=== PATIENT | female | born 1965 | race Caucasian/White ===

== ENCOUNTER 2017-10-23 16:55 | Emergency (ER) | payer MEDICARE, OTHER ==
[~2017-10-23] VITALS: Ht 162.6 cm; Wt 54.4 kg
[~2017-10-23 16:55] MED LIST: ALBU90OI INH; ALBU90OI61 INH; ASPI325 PO; Ativan1 MG SL; CEPH500 PO; CETI10 PO; CYCL10 PO; DIAZ5 PO; DIPH50 PO; DOXY100 PO; ERYT.5TO OD; Eryped 400400 MG/5 M PO; HYDACE5 PO; IBUP600 PO; IBUP800 PO; INSN100I; INSN100I SC; INSR10I; INSR10I SC; INSU100I6 SC; INSUASPI SUBQ; INSULANI SUBQ; INSULANPEN SC; KETO10 PO; LEVFLO500 PO; LISI5 PO; LORA1 PO; METO5A PO; METR500 PO; NAPR500 MT; NITR100CA PO; ONDA4ODT MM; ONDA8 PO; OXYACE5T PO; PANT40 PO; PRED10 PO; PROC10 PO; PROC25S PR; PROM25 PO; PROM25S PR; SULTRISS PO; TRAM50 PO; Tigan300 MG PO; Zofran Odt4 MG SL; Zofran Odt8 MG SL; Zofran8 MG PO
[2017-10-23] MEDS ORDERED: ALPR.5 PO (17:30)
[2017-10-23] MEDS ORDERED: FURO20 PO (17:31)
[2017-10-23] MEDS ORDERED: ALBU90OI61 INH (17:31)
[2017-10-23 18:30] LABS: Calcium, Ionized (POC) 1.15 mmol/L (1.10-1.46); Chloride (POC) 103 mmol/L (98-108); Creatinine (POC) 1.3 mg/dL (0.6-1.0); Glucose (ISTAT POC) 218 mg/dL (70-99); Hemoglobin (POC) 11.6 g/dL (12.0-16.0); Potassium (POC) 4.6 mmol/L (3.5-5.5); Sodium (POC) 139 mmol/L (135-148); Total CO2 (POC) 27 mmol/L (21-32)
[2017-10-23 18:39] LABS: BASOPHILS ABSOLUTE AUTO 0.05 K/mm3 (0.00-0.23); BASOPHILS PERCENT AUTO 1 % (0-2); EOSINOPHILS ABSOLUTE AUTO 0.12 K/mm3 (0.00-0.68); EOSINOPHILS PERCENT AUTO 1 % (0-6); Hematocrit 34.4 % (33.0-51.0); Hemoglobin 11.2 g/dL (11.5-16.0); IMMATURE GRAN ABSOLUTE AUTO 0.03 K/mm3 (0.00-0.10); IMMATURE GRAN PERCENT AUTO 0 % (0-1); LYMPHOCYTES PERCENT AUTO 27 % (21-46); MONOCYTES ABSOLUTE AUTO 0.93 K/mm3 (0.16-1.47); MONOCYTES PERCENT AUTO 10 % (4-13); Mean Corpuscular HGB 29.3 pg (26.0-34.0); Mean Corpuscular HGB Conc 32.6 g/dL (31.5-36.5); Mean Corpuscular Volume 90 fL (80-100); NEUTROPHILS ABSOLUTE AUTO 5.56 K/mm3 (1.96-9.15); NEUTROPHILS PERCENT AUTO 61 % (41-73); Platelet Count 231 K/mm3 (150-400); RDW Coefficient Variation 13.1 % (11.7-14.2); RDW Standard Deviation 42.8 fL (35.1-46.3); Red Blood Cell Count 3.82 M/mm3 (3.80-5.20); White Blood Cell Count 9.19 K/mm3 (4.00-11.30)
[2017-10-23] MEDS ORDERED: Norco 5-325 Ta1 EACH PO (21:17)
[2017-10-23] MEDS ORDERED: ERYT1OIN RIGHTEYE (21:17)
[2017-10-23] MEDS ORDERED: Cleocin HCl150 MG PO (21:17)
== END 2017-10-23 21:28 | disposition home or self-care (01) ==
LOC: ER 16:55
PROVIDERS: Physician Assistant
DX: S05.01XA Injury of conjunctiva and corneal abrasion without foreign body, right eye, initial encounter (principal); L03.213 Periorbital cellulitis; Z88.5 Allergy status to narcotic agent; Z91.012 Allergy to eggs; Z91.018 Allergy to other foods; Z88.8 Allergy status to other drugs, medicaments and biological substances; Z79.899 Other long term (current) drug therapy; Z79.4 Long term (current) use of insulin; E10.9 Type 1 diabetes mellitus without complications; F17.210 Nicotine dependence, cigarettes, uncomplicated; W22.8XXA Striking against or struck by other objects, initial encounter
CPT/HCPCS: 36415; 70481; 80047; 85014; 85025; 96361; 96365; 99284; J7030; Q9967

== ENCOUNTER → 2018-04-26 | Outpatient (CLI) | payer MEDICARE, OTHER ==
[~2018-04-26] MED LIST changes: +ALPR.5 PO; +Cleocin HCl150 MG PO; +ERYT1OIN RIGHTEYE; +FURO20 PO; +Norco 5-325 Ta1 EACH PO
== END | disposition home or self-care (01) ==
LOC: LAB 11:41 → LAB SHORT 11:41
PROVIDERS: Nurse Practitioner Women's Health
DX: Z12.4 Encounter for screening for malignant neoplasm of cervix (principal)
CPT/HCPCS: 87624; G0123

== ENCOUNTER 2018-06-12 13:45 | Emergency (ER) | payer MEDICARE, OTHER ==
[~2018-06-12] VITALS: Ht 162.6 cm; Wt 54.4 kg
[2018-06-12] MEDS ORDERED: Benadryl A12.5 MG/5 PO (14:28)
[2018-06-12] MEDS ORDERED: Cephalexin250 MG/5 M PO (14:28)
== END 2018-06-12 14:33 | disposition home or self-care (01) ==
LOC: ER 13:45
DX: L01.00 Impetigo, unspecified (principal); L02.03 Carbuncle of face; L02.02 Furuncle of face; Z88.5 Allergy status to narcotic agent; Z91.012 Allergy to eggs; Z91.018 Allergy to other foods; Z79.899 Other long term (current) drug therapy; Z79.4 Long term (current) use of insulin; Z79.2 Long term (current) use of antibiotics; E10.9 Type 1 diabetes mellitus without complications; F17.210 Nicotine dependence, cigarettes, uncomplicated
CPT/HCPCS: 99282

== ENCOUNTER 2018-06-29 10:22 | Emergency (ER) | payer MEDICARE, OTHER ==
[~2018-06-29] VITALS: Ht 162.6 cm; Wt 54.4 kg
[~2018-06-29 10:22] MED LIST changes: +Benadryl A12.5 MG/5 PO; +Cephalexin250 MG/5 M PO
[2018-06-29] MEDS ORDERED: MUPIROCIN1 GM TOP (11:26)
== END 2018-06-29 11:40 | disposition home or self-care (01) ==
LOC: ER 10:22
DX: L98.9 Disorder of the skin and subcutaneous tissue, unspecified (principal); E10.9 Type 1 diabetes mellitus without complications; F17.200 Nicotine dependence, unspecified, uncomplicated; Z88.5 Allergy status to narcotic agent; Z91.012 Allergy to eggs; Z91.018 Allergy to other foods; Z88.8 Allergy status to other drugs, medicaments and biological substances; Z79.899 Other long term (current) drug therapy; Z79.51 Long term (current) use of inhaled steroids
CPT/HCPCS: 99283

== ENCOUNTER 2019-08-30 09:24 | Emergency (ER) | payer MEDICARE, OTHER ==
[~2019-08-30] VITALS: Ht 162.6 cm; Wt 56.7 kg
[~2019-08-30 09:24] MED LIST changes: +MUPIROCIN1 GM TOP
[2019-08-30 10:10] LABS: BASOPHILS ABSOLUTE AUTO 0.07 K/mm3 (0.00-0.23); BASOPHILS PERCENT AUTO 1 % (0-2); EOSINOPHILS PERCENT AUTO 3 % (0-6); Hematocrit 38.7 % (33.0-51.0); Hemoglobin 12.7 g/dL (11.5-16.0); IMMATURE GRAN ABSOLUTE AUTO 0.04 K/mm3 (0.00-0.10); IMMATURE GRAN PERCENT AUTO 1 % (0-1); LYMPHOCYTES ABSOLUTE AUTO 1.92 K/mm3 (0.84-5.20); LYMPHOCYTES PERCENT AUTO 25 % (21-46); MONOCYTES ABSOLUTE AUTO 0.89 K/mm3 (0.16-1.47); MONOCYTES PERCENT AUTO 12 % (4-13); Mean Corpuscular HGB 29.6 pg (26.0-34.0); Mean Corpuscular HGB Conc 32.8 g/dL (31.5-36.5); Mean Corpuscular Volume 90 fL (80-100); Mean Platelet Volume 11.5 fL (9.1-12.4); NEUTROPHILS ABSOLUTE AUTO 4.58 K/mm3 (1.96-9.15); NEUTROPHILS PERCENT AUTO 60 % (41-73); Platelet Count 202 K/mm3 (150-400); RDW Standard Deviation 42.7 fL (35.1-46.3); Red Blood Cell Count 4.29 M/mm3 (3.80-5.20)
[2019-08-30 10:21] LABS: Anion Gap 7 mmol/L (6-16); Blood Urea Nitrogen 18 mg/dL (8-24); Bun/Creatinine Ratio 19.7 (12.0-20.0); CO2, Blood 23 mmol/L (21-32); Calcium, Blood 9.1 mg/dL (8.5-10.1); Chloride, Blood 108 mmol/L (98-108); Creatinine, Blood 0.92 mg/dL (0.40-1.00); Glomerular Filtration Rate >60 (60-); Glucose, Blood 222 mg/dL (70-99); Potassium, Blood 4.5 mmol/L (3.5-5.5); Sodium, Blood 138 mmol/L (136-145)
[2019-08-30] MEDS ORDERED: K-TAB ER20 MEQ (10:52)
[2019-08-30] MEDS ORDERED: HYDROCODON-ACE118 ML PO (11:51)
[2019-08-30] MEDS ORDERED: Zithromax200 MG/5 M PO (11:51)
[2019-08-30] MEDS ORDERED: ROBITUSSIN30 MG/5 ML PO (11:51)
== END 2019-08-30 12:15 | disposition home or self-care (01) ==
LOC: ER 09:24
PROVIDERS: Emergency Medicine
DX: J20.9 Acute bronchitis, unspecified (principal); M54.12 Radiculopathy, cervical region; E10.40 Type 1 diabetes mellitus with diabetic neuropathy, unspecified; E10.43 Type 1 diabetes mellitus with diabetic autonomic (poly)neuropathy; K31.84 Gastroparesis; Z87.891 Personal history of nicotine dependence; Z88.5 Allergy status to narcotic agent; Z91.012 Allergy to eggs; Z91.018 Allergy to other foods; Z88.8 Allergy status to other drugs, medicaments and biological substances; Z79.899 Other long term (current) drug therapy; Z79.4 Long term (current) use of insulin
CPT/HCPCS: 36415; 71046; 72040; 80048; 85025; 93005; 93010; 94640; 96374; 99284-25; J1885

== ENCOUNTER → 2020-09-09 | Outpatient (CLI) | payer MEDICARE, OTHER ==
[~2020-09-09] MED LIST changes: +ALPRAZOLAM0.5 M1 PO; +ATOR80 PO; +Aspirin EC81 MG PO; +BASAGLAR K100 UNIT/1 SC; +BASAGLAR K100 UNIT/3 SC; +BENMENLOZ MT; +BUMETANIDE2 M3 PO; +CALC.25 PO; +CARVEDILOL12.5 MG PO; +CEFTRIAXONE2 G1 IV; +ELIQUIS5 MG PO; +FLUTICASONE-SA1 EAC1 INH; +FURO40 PO; +GABA100 PO; +GABA300 PO; +HUMALOG KW100 UNIT/1 SC; +HYDRA25; +HYDROCODON-ACE118 ML PO; -INSULANPEN SC; +K-TAB ER20 MEQ; +KLOR-CON 1010 ME3 PO; +LEVSOD25 PO; +LIPITOR80 MG PO; +LOVA40 PO; +Lisinopril2.5 MG PO; +MAGNESIUM OXID500 MG PO; +METO100 PO; +METO25 PO; +METO5 PO; +METO50 PO; +MIRALAX17 GM PO; +NEPHRO VITE; +NITR.4SL SL; +NOVOLOG FL100 UNIT/3; +NOVOLOG FL100 UNIT/3 SC; +ONDA4 PO; +ONDA4ODT PO; +Ondansetron Odt8 MG PO; +PANT20 PO; -PANT40 PO; +POTA10T PO; +Prednisone10 MG PO; +Prinivil10 MG PO; +ROBITUSSIN30 MG/5 ML PO; +SIME80CH PO; +SULTRIDS PO; +Sertraline HCl50 MG PO; +TAMS.4ER PO; +TORS10; +TORSE20 PO; +VENL75ER PO; +XARELTO20 MG PO; +Zithromax200 MG/5 M PO
[2020-09-09 18:09] LABS: Albumin, Blood 3.3 g/dL (3.4-5.0); Anion Gap 3 mmol/L (6-16); Blood Urea Nitrogen 18 mg/dL (8-24); CO2, Blood 30 mmol/L (21-32); Calcium, Blood 8.5 mg/dL (8.5-10.1); Chloride, Blood 107 mmol/L (98-108); Glomerular Filtration Rate 50 (60-); Glucose, Blood 273 mg/dL (70-99); Phosphorus, Blood 3.7 mg/dL (2.5-4.9); Potassium, Blood 4.6 mmol/L (3.5-5.5); Sodium, Blood 140 mmol/L (136-145)
== END | disposition home or self-care (01) ==
LOC: PLD 14:06
PROVIDERS: Internal Medicine Nephrology
DX: N18.30 Chronic kidney disease, stage 3 unspecified (principal); D63.1 Anemia in chronic kidney disease
CPT/HCPCS: 80069

== ENCOUNTER 2020-10-29 12:57 | Emergency (ER) | payer MEDICARE, OTHER ==
[~2020-10-29] VITALS: Ht 162.6 cm; Wt 59.0 kg
[~2020-10-29 12:57] MED LIST changes: -ALPRAZOLAM0.5 M1 PO; -ATOR80 PO; -Aspirin EC81 MG PO; -BASAGLAR K100 UNIT/3 SC; -BENMENLOZ MT; -BUMETANIDE2 M3 PO; -CALC.25 PO; -CARVEDILOL12.5 MG PO; -CEFTRIAXONE2 G1 IV; -ELIQUIS5 MG PO; -FLUTICASONE-SA1 EAC1 INH; -FURO40 PO; -GABA100 PO; -GABA300 PO; -HUMALOG KW100 UNIT/1 SC; -HYDRA25; -KLOR-CON 1010 ME3 PO; -LEVSOD25 PO; -LIPITOR80 MG PO; -LOVA40 PO; -Lisinopril2.5 MG PO; -MAGNESIUM OXID500 MG PO; -METO100 PO; -METO25 PO; -METO5 PO; -METO50 PO; -MIRALAX17 GM PO; -NEPHRO VITE; -NITR.4SL SL; -NOVOLOG FL100 UNIT/3; -ONDA4 PO; -ONDA4ODT PO; -Ondansetron Odt8 MG PO; -POTA10T PO; -Prednisone10 MG PO; -Prinivil10 MG PO; -SIME80CH PO; -SULTRIDS PO; -Sertraline HCl50 MG PO; -TAMS.4ER PO; -TORS10; -TORSE20 PO; -VENL75ER PO; -XARELTO20 MG PO
[2020-10-29 13:26] LABS: BASOPHILS ABSOLUTE AUTO 0.08 K/mm3 (0.00-0.23); BASOPHILS PERCENT AUTO 1 % (0-2); EOSINOPHILS ABSOLUTE AUTO 0.89 K/mm3 (0.00-0.68); EOSINOPHILS PERCENT AUTO 7 % (0-6); Hematocrit 32.2 % (33.0-51.0); Hemoglobin 9.7 g/dL (11.5-16.0); IMMATURE GRAN ABSOLUTE AUTO 0.05 K/mm3 (0.00-0.10); IMMATURE GRAN PERCENT AUTO 0 % (0-1); LYMPHOCYTES ABSOLUTE AUTO 1.18 K/mm3 (0.84-5.20); LYMPHOCYTES PERCENT AUTO 10 % (21-46); MONOCYTES ABSOLUTE AUTO 0.85 K/mm3 (0.16-1.47); MONOCYTES PERCENT AUTO 7 % (4-13); Mean Corpuscular HGB 27.1 pg (26.0-34.0); Mean Corpuscular HGB Conc 30.1 g/dL (31.5-36.5); Mean Corpuscular Volume 90 fL (80-100); Mean Platelet Volume 10.2 fL (9.1-12.4); NEUTROPHILS ABSOLUTE AUTO 9.05 K/mm3 (1.96-9.15); NEUTROPHILS PERCENT AUTO 75 % (41-73); Platelet Count 525 K/mm3 (150-400); RDW Coefficient Variation 14.6 % (11.7-14.2); RDW Standard Deviation 47.6 fL (35.1-46.3); Red Blood Cell Count 3.58 M/mm3 (3.80-5.20)
[2020-10-29 13:50] LABS: Albumin/Globulin Ratio 0.7 (0.8-1.8); Bilirubin, Total 0.2 mg/dL (0.1-1.0); Bun/Creatinine Ratio 34.9 (12.0-20.0); Calcium, Blood 8.8 mg/dL (8.5-10.1); Creatinine, Blood 1.89 mg/dL (0.40-1.00); Globulin, Blood 4.1 g/dL (2.2-4.0); Potassium, Blood 4.1 mmol/L (3.5-5.5); Total Protein, Blood 7.1 g/dL (6.4-8.2)
[2020-10-29] MEDS ORDERED: FURO40 PO (15:22)
[2020-10-29] MEDS ORDERED: ELIQUIS5 MG PO (15:24)
[2020-10-29] MEDS ORDERED: CALC.25 PO (15:24)
[2020-10-29] MEDS ORDERED: FLUTICASONE-SA1 EAC1 INH (15:25)
[2020-10-29] MEDS ORDERED: HYDRA25 (15:26)
[2020-10-29] MEDS ORDERED: GABA300 PO (15:26)
[2020-10-29] MEDS ORDERED: LOVA40 PO (15:27)
[2020-10-29] MEDS ORDERED: METO50 PO (15:27)
[2020-10-29] MEDS ORDERED: LEVSOD25 PO (15:27)
[2020-10-29] MEDS ORDERED: METO100 PO (15:28)
[2020-10-29] MEDS ORDERED: POTA10T PO (15:29)
[2020-10-29] MEDS ORDERED: NEPHRO VITE (15:29)
[2020-10-29] MEDS ORDERED: Sertraline HCl50 MG PO (15:29)
[2020-10-29] MEDS ORDERED: TAMS.4ER PO (15:30)
[2020-10-29] MEDS ORDERED: VENL75ER PO (15:30)
[2020-10-29] MEDS ORDERED: XARELTO20 MG PO (15:31)
[2020-10-29] MEDS ORDERED: CEPH500 PO (19:54)
== END 2020-10-29 20:05 | disposition home or self-care (01) ==
LOC: ER 12:57
PROVIDERS: Physician Assistant
DX: L76.34 Postprocedural seroma of skin and subcutaneous tissue following other procedure (principal); L76.82 Other postprocedural complications of skin and subcutaneous tissue; L03.115 Cellulitis of right lower limb; E10.40 Type 1 diabetes mellitus with diabetic neuropathy, unspecified; E10.43 Type 1 diabetes mellitus with diabetic autonomic (poly)neuropathy; K31.84 Gastroparesis; Z95.1 Presence of aortocoronary bypass graft; Z79.01 Long term (current) use of anticoagulants; Z79.899 Other long term (current) drug therapy; Z91.012 Allergy to eggs; Z88.5 Allergy status to narcotic agent; Z88.8 Allergy status to other drugs, medicaments and biological substances; Z87.891 Personal history of nicotine dependence; Y83.8 Other surgical procedures as the cause of abnormal reaction of the patient, or of later complication, without mention of misadventure at the time of the procedure
CPT/HCPCS: 10140; 36415; 80053; 82947; 83605; 85025; 87040; 87070; 87075; 87205; 96365-59; 99284-25; A9270; J3370

== ENCOUNTER → 2020-10-30 | Outpatient (CLI) | payer MEDICARE, OTHER ==
[~2020-10-30] MED LIST changes: +ALPRAZOLAM0.5 M1 PO; +ATOR80 PO; +Aspirin EC81 MG PO; +BASAGLAR K100 UNIT/3 SC; +BENMENLOZ MT; +BUMETANIDE2 M3 PO; +CALC.25 PO; +CARVEDILOL12.5 MG PO; +CEFTRIAXONE2 G1 IV; +ELIQUIS5 MG PO; +FLUTICASONE-SA1 EAC1 INH; +FURO40 PO; +GABA100 PO; +GABA300 PO; +HUMALOG KW100 UNIT/1 SC; +HYDRA25; +KLOR-CON 1010 ME3 PO; +LEVSOD25 PO; +LIPITOR80 MG PO; +LOVA40 PO; +Lisinopril2.5 MG PO; +MAGNESIUM OXID500 MG PO; +METO100 PO; +METO25 PO; +METO5 PO; +METO50 PO; +MIRALAX17 GM PO; +NEPHRO VITE; +NITR.4SL SL; +NOVOLOG FL100 UNIT/3; +ONDA4 PO; +ONDA4ODT PO; +Ondansetron Odt8 MG PO; +POTA10T PO; +Prednisone10 MG PO; +Prinivil10 MG PO; +SIME80CH PO; +SULTRIDS PO; +Sertraline HCl50 MG PO; +TAMS.4ER PO; +TORS10; +TORSE20 PO; +VENL75ER PO; +XARELTO20 MG PO
[2020-10-30 14:09] LABS: Creatinine Urine 38.9 mg/dL (27.00-270.00); Microalbumin, Urine Quant. 15.6 mg/L (0.000-20.000)
== END ==
LOC: LAB 06:00 → LAB SHORT 06:00 → LAB FUT 09-03 14:45
PROVIDERS: Internal Medicine Nephrology
DX: N18.2 Chronic kidney disease, stage 2 (mild) (principal); D63.1 Anemia in chronic kidney disease; N25.81 Secondary hyperparathyroidism of renal origin; E55.9 Vitamin D deficiency, unspecified; E78.00 Pure hypercholesterolemia, unspecified; R76.9 Abnormal immunological finding in serum, unspecified; R94.5 Abnormal results of liver function studies; R94.6 Abnormal results of thyroid function studies
CPT/HCPCS: 81050; 82043; 82570; 84156

== ENCOUNTER 2020-12-03 11:35 | Emergency (ER) | payer MEDICARE, OTHER ==
[~2020-12-03] VITALS: Ht 162.6 cm; Wt 61.7 kg
[~2020-12-03 11:35] MED LIST changes: -ALPRAZOLAM0.5 M1 PO; -ATOR80 PO; -Aspirin EC81 MG PO; -BASAGLAR K100 UNIT/3 SC; -BENMENLOZ MT; -BUMETANIDE2 M3 PO; -CARVEDILOL12.5 MG PO; -CEFTRIAXONE2 G1 IV; -GABA100 PO; -HUMALOG KW100 UNIT/1 SC; -KLOR-CON 1010 ME3 PO; -LIPITOR80 MG PO; -Lisinopril2.5 MG PO; -MAGNESIUM OXID500 MG PO; -METO25 PO; -METO5 PO; -MIRALAX17 GM PO; -NITR.4SL SL; -NOVOLOG FL100 UNIT/3; -ONDA4 PO; -ONDA4ODT PO; -Ondansetron Odt8 MG PO; -Prednisone10 MG PO; -Prinivil10 MG PO; -SIME80CH PO; -SULTRIDS PO; -TORS10; -TORSE20 PO
[2020-12-03] MEDS ORDERED: Lisinopril2.5 MG PO (14:06)
[2020-12-03] MEDS ORDERED: CARVEDILOL12.5 MG PO (14:07)
[2020-12-03] MEDS ORDERED: NOVOLOG FL100 UNIT/3 (14:07)
[2020-12-03] MEDS ORDERED: ONDA4 PO (14:07)
[2020-12-03] MEDS ORDERED: METO5 PO (14:08)
[2020-12-03] MEDS ORDERED: LIPITOR80 MG PO (14:08)
[2020-12-03] MEDS ORDERED: TORS10 (14:08)
[2020-12-03] MEDS ORDERED: Aspirin EC81 MG PO (14:09)
== END 2020-12-03 14:36 | disposition home or self-care (01) ==
LOC: ER 11:35
DX: L76.82 Other postprocedural complications of skin and subcutaneous tissue (principal); E10.43 Type 1 diabetes mellitus with diabetic autonomic (poly)neuropathy; K31.84 Gastroparesis; R22.41 Localized swelling, mass and lump, right lower limb; M79.604 Pain in right leg; E10.40 Type 1 diabetes mellitus with diabetic neuropathy, unspecified; Z79.899 Other long term (current) drug therapy; Z88.5 Allergy status to narcotic agent; Z91.012 Allergy to eggs; Z88.8 Allergy status to other drugs, medicaments and biological substances; Z79.01 Long term (current) use of anticoagulants; Z87.891 Personal history of nicotine dependence; Y83.9 Surgical procedure, unspecified as the cause of abnormal reaction of the patient, or of later complication, without mention of misadventure at the time of the procedure
CPT/HCPCS: 76882; 99284-25

== ENCOUNTER 2021-03-06 05:29 | Inpatient (IN) | payer MEDICARE, OTHER ==
[~2021-03-06] VITALS: Ht 167.6 cm; Wt 57.5 kg
[~2021-03-06 05:29] MED LIST changes: +Aspirin EC81 MG PO; +CARVEDILOL12.5 MG PO; +LIPITOR80 MG PO; +Lisinopril2.5 MG PO; +METO5 PO; +NOVOLOG FL100 UNIT/3; +ONDA4 PO; +TORS10
[2021-03-06 06:59] LABS: BASOPHILS ABSOLUTE AUTO 0.05 K/mm3 (0.00-0.23); BASOPHILS PERCENT AUTO 1 % (0-2); EOSINOPHILS ABSOLUTE AUTO 0.13 K/mm3 (0.00-0.68); EOSINOPHILS PERCENT AUTO 1 % (0-6); Hematocrit 36.7 % (33.0-51.0); Hemoglobin 11.6 g/dL (11.5-16.0); IMMATURE GRAN ABSOLUTE AUTO 0.03 K/mm3 (0.00-0.10); IMMATURE GRAN PERCENT AUTO 0 % (0-1); LYMPHOCYTES ABSOLUTE AUTO 1.05 K/mm3 (0.84-5.20); LYMPHOCYTES PERCENT AUTO 11 % (21-46); MONOCYTES ABSOLUTE AUTO 0.55 K/mm3 (0.16-1.47); MONOCYTES PERCENT AUTO 6 % (4-13); Mean Corpuscular HGB 26.2 pg (26.0-34.0); Mean Corpuscular HGB Conc 31.6 g/dL (31.5-36.5); Mean Corpuscular Volume 83 fL (80-100); Mean Platelet Volume 12.9 fL (9.1-12.4); NEUTROPHILS ABSOLUTE AUTO 7.86 K/mm3 (1.96-9.15); NEUTROPHILS PERCENT AUTO 81 % (41-73); Platelet Count 211 K/mm3 (150-400); RDW Coefficient Variation 16.6 % (11.7-14.2); RDW Standard Deviation 50.6 fL (35.1-46.3); Red Blood Cell Count 4.42 M/mm3 (3.80-5.20); White Blood Cell Count 9.67 K/mm3 (4.00-11.30)
[2021-03-06] MEDS ORDERED: BASAGLAR K100 UNIT/3 SC (06:59)
[2021-03-06] MEDS ORDERED: LISI5 PO (07:00)
[2021-03-06] MEDS ORDERED: GABA100 PO (07:00)
[2021-03-06] MEDS ORDERED: TORSE20 PO (07:01)
[2021-03-06] MEDS ORDERED: ALPRAZOLAM0.5 M1 PO (07:02)
[2021-03-06] MEDS ORDERED: Ondansetron Odt8 MG PO (07:04)
[2021-03-06 07:14] LABS: Albumin, Blood 3.7 g/dL (3.4-5.0); Bilirubin, Total 0.3 mg/dL (0.1-1.0); Bun/Creatinine Ratio 22.7 (12.0-20.0); Calcium, Blood 9.2 mg/dL (8.5-10.1); Creatinine, Blood 1.41 mg/dL (0.40-1.00); Globulin, Blood 3.6 g/dL (2.2-4.0); Potassium, Blood 4.3 mmol/L (3.5-5.5); Total Protein, Blood 7.3 g/dL (6.4-8.2); Troponin I 0.155 ng/mL (0.000-0.040)
[2021-03-06 09:22] LABS: International Normalized Ratio 0.94; Prothrombin Time Results 10.2 Sec (9.7-11.5)
[2021-03-06 10:55] LABS: SARS-Cov-2 (COVID-19) PCR, MMC NEGATIVE (NEGATIVE)
[2021-03-06 11:39] LABS: PCO2 Arterial 56.4 mmHg (35-45); PO2 Arterial 79.9 mmHg (80-100)
[2021-03-06 11:40] LABS: pH Blood Arterial 7.25 (7.35-7.45)
--- NOTE | 2021-03-06 11:45 | NUR ---
Echocardiograpm performed by Stacy Lyons under my supervision.
--- NOTE | 2021-03-06 12:06 | NUR ---
Echocardiogram performed by Stacy Lyons under my supervision.
[2021-03-06 12:16] LABS: Source, Urine Catheter
[2021-03-06 12:40] LABS: Bilirubin, Urine Neg (Neg); Blood, Urine 1+ (Neg); Glucose Qualitative, Urine 4+ (Neg); Ketones, Urine 2+ (Neg); Leukocyte Esterase, Urine Neg (Neg); Nitrite, Urine Neg (Neg); Protein, Urine 3+ (Neg); Urobilinogen, Urine NORM (Normal); pH, Urine 6.5 (5.0-8.0)
[2021-03-06 12:52] LABS: U Amphetamine Screen Not Detected; U Barbituate Screen Not Detected; U Benzodiazapine Screen Not Detected; U Buprenorphine Screen Not Detected; U Cannabinoids Screen DETECTED; U Cocaine Screen Not Detected; U Methadone Screen Not Detected; U Methamphetamine Screen Not Detected; U Opiates Screen DETECTED; U Oxycodone Screen Not Detected; U Phencyclidine Screen Not Detected; U Propoxyphene Screen Not Detected
[2021-03-06 12:57] LABS: Appearance, Urine Clear (Clear); Bacteria Not Seen /hpf; Color, Urine Yellow (P-Yellow); Red Blood Cells, Urine 0-2 /hpf (0-2); Squamous Epithelial Cells Rare /hpf (Few); White Blood Cells, Urine Not Seen /hpf (0-5)
--- NOTE | 2021-03-06 13:00 | NUR ---
Assumed care of pt upon arrival to ICU 2 from emergency department at 1230. Pt arrived accompanied by Jeramy TOBIAS. Transferred from ED [facility] to ICU bed using slider sheet and 5 staff. At time of arrival, heparin drip running per orders, levophed at 8 mcg/min peripherally, and propofol at 30 mcg/kg/min with dosing weight of 59 kg. Plan for charge nurse, Mariza, to place PICC line. Pt on ventilator via 7.5 cm ETT, 24cm ATT. Ventilator settings ACVC 16/325/5/75%. SpO2 90% or greater. SR per monitor. BP stable. OG tube placed to LIS. Green drainage from tube. Scant clear secretions from ETT. Low temp per temp stuart and temporal thermometer. Warm blankets provided. Stuart catheter draining clear, yellow urine. Family- sister and pt's son, updated on plan of care.
[2021-03-06 13:46] LABS: Hematocrit 38.9 % (33.0-51.0); Hemoglobin 12.1 g/dL (11.5-16.0)
--- NOTE | 2021-03-06 15:03 | NUR ---
At this time, levophed is off. Propofol is up to 50 mcg/kg/min as pt started coughing against ventilator and sitting up in bed, pulling on restraints with hands moving in direction of ETT. Pt did not follow commands. Insulin drip at 5 units/hr. Dr Veliz in to see pt. States plan to trend troponins and that increase to 2 or 3 is expected.
--- NOTE | 2021-03-06 15:10 | NUR ---
ELEVATED TROPONIN, FUTURE TROPONIN ORDERS Discussed with Dr Thayer and transmitter engineer in charge that troponin increased to 2.630. Provider requested this RN notify cathodic protection technician, Dr Veliz. Notified provider that next troponin check is for 1900. Provider ordered for this to be discontinued, and instead check troponin tomorrow AM.
--- NOTE | 2021-03-06 18:10 | NUR ---
Notified Dr Thayer that pt's blood sugar dropped quickly and is now 167. Insulin drip stopped and plan to check blood sugars Q4H with humalog coverage.
--- NOTE | 2021-03-06 18:21 | NUR ---
SUMMARY Pt is on 50 mcg/kg/min propofol. Levophed at 5 mcg/min. Heparin per orders. Insulin drip is off. Ventilator settings ACVC 16/325/5/30%. SpO2 90% or greater. SR per monitor. BP stable. Excellent urine output. OG tube remains to LIS. Will continue to closely monitor until care handoff and bedside report with oncoming RN.
--- NOTE | 2021-03-06 18:58 | NUR ---
Called to ED to provide calm presence and guidence to family. Pt' Sister, Carlota, was emotionally fragile and quite tearful. Facilitated life review, afirmed obvious love, and provided grounding presence. Stayed with Carlota, offering communication between clincal team. Helped translate clinical terminology to Carlota's understanding. This took several hours. Pt's son arrived and I offered the same interventions to him to good effect. Non-synagogue/spiritual pt and family. They declined prayer but appeared to benefit from otehr interventions. Family appears to understand serious dx. Rn Perinatal services will remain available.
--- NOTE | 2021-03-06 19:00 | NUR ---
ASSUMED CARE ASSUMED CARE OF PATIENT. REMAINS INTUBATED- AC 16, TV 325, PEEP 5, FIO2 30%. RR 16. SEDATED WITH PROPOFOL AT 50MCG/KG/MIN. OPENS EYES TO VERBAL STIMULI. BECOMES AGITATED WHEN AWAKE. PULLS AGAINST RESTRAINTS, REACHES FOR ETT, AND ATTEMPTS TO SIT UP IN BED. SQUEEZED HAND TO COMMAND, BUT NOT FOLLOWING ANY OTHER COMMANDS. BILATERAL SOFT WRIST RESTRAINTS IN PLACE TO PREVENT SELF-EXTUBATION. MONITOR SHOWS SR, RATE 70s. MAP >65 WITH LEVOPHED AT 5MCG/MIN. OG TO LIS WITH SMALL AMOUNT OF BROWN DRAINAGE. RODRIGUEZ PATENT AND DRAINING SMALL AMOUNT OF CLEAR YELLOW URINE. KALE PICC PATENT, DRSG D/I. HEPARIN INFUSING PER PHARMACY AT 12.5UNITS/KG/HR (14.8CC/HR). SEE SHIFT ASSESSMENT FOR FULL ASSESSMENT.
[2021-03-06 19:02] LABS: Hematocrit 35.8 % (33.0-51.0); Hemoglobin 11.4 g/dL (11.5-16.0)
--- NOTE | 2021-03-07 02:45 | NUR ---
AGITATION PT WITH INCREASED AGITATION DESPITE PROPOFOL 50-90MCG/KG/MIN AND FENTANYL 50MCG IV Q2H. SITTING UP IN BED AND REACHING FOR ETT TUBE. THROWING LEGS OVER SIDE OF BED. DR. GARCIA NOTIFIED AND NEW ORDERS RECEIVED FOR PRECEDEX AND ATIVAN NEEDED.
[2021-03-07 04:27] LABS: BASOPHILS ABSOLUTE AUTO 0.04 K/mm3 (0.00-0.23); BASOPHILS PERCENT AUTO 0 % (0-2); EOSINOPHILS ABSOLUTE AUTO 0.13 K/mm3 (0.00-0.68); EOSINOPHILS PERCENT AUTO 1 % (0-6); Hematocrit 33.7 % (33.0-51.0); Hemoglobin 10.7 g/dL (11.5-16.0); IMMATURE GRAN ABSOLUTE AUTO 0.06 K/mm3 (0.00-0.10); IMMATURE GRAN PERCENT AUTO 1 % (0-1); LYMPHOCYTES PERCENT AUTO 19 % (21-46); MONOCYTES ABSOLUTE AUTO 0.94 K/mm3 (0.16-1.47); MONOCYTES PERCENT AUTO 8 % (4-13); Mean Corpuscular HGB 26.1 pg (26.0-34.0); Mean Corpuscular HGB Conc 31.8 g/dL (31.5-36.5); Mean Corpuscular Volume 82 fL (80-100); Mean Platelet Volume 11.6 fL (9.1-12.4); NEUTROPHILS ABSOLUTE AUTO 8.05 K/mm3 (1.96-9.15); NEUTROPHILS PERCENT AUTO 71 % (41-73); Platelet Count 177 K/mm3 (150-400); RDW Standard Deviation 50.6 fL (35.1-46.3); White Blood Cell Count 11.42 K/mm3 (4.00-11.30)
[2021-03-07 05:02] LABS: Albumin, Blood 2.9 g/dL (3.4-5.0); Albumin/Globulin Ratio 0.9 (0.8-1.8); Bilirubin, Total 0.3 mg/dL (0.1-1.0); Bun/Creatinine Ratio 20.2 (12.0-20.0); Calcium, Blood 8.3 mg/dL (8.5-10.1); Creatinine, Blood 1.73 mg/dL (0.40-1.00); Globulin, Blood 3.1 g/dL (2.2-4.0); Potassium, Blood 3.2 mmol/L (3.5-5.5)
[2021-03-07 05:07] LABS: Troponin I 30.6 ng/mL (0.000-0.040)
--- NOTE | 2021-03-07 06:22 | NUR ---
SHIFT SUMMARY NO ACUTE CHANGES. REMAINS INTUBATED- AC 16, TV 325, PEEP 5, FIO2 30%. SEDATED WITH PROPOFOL AT 50MCG/KG/MIN AND PRECEDEX AT 0.3MCG/KG/HR. PT CONTINUES WITH PERIODS OF AGITATION WITH ANY STIMULATION, BUT APPEARS LESS SINCE PRECEDEX WAS STARTED. ALSO MEDICATED WITH FENTANYL 50MCG IV AND ATIVAN 2MG IV NEEDED FOR SEDATION ADJUNCT. LEVOPHED INFUSING AT 4MCG/MIN TO MAINTAIN MAP >65. HEPARIN INFUSING AT 12.5UNITS/KG/HR PER PHARMACY. OG TO LIS WITH SMALL AMOUNT OF BROWN DRAINAGE. RODRIGUEZ PATENT AND DRAINING CLEAR YELLOW URINE. WILL REPORT TO ONCOMING RN WHEN AVAILABLE.
--- NOTE | 2021-03-07 07:15 | NUR ---
Assumed care of pt at 0700. Bedside report received from Annabelle TOBIAS. Pt sedated with propofol at 50 mcg/kg/min. Precedex at 0.3 mcg/kg/hr. Requiring 4 mcg/min levophed. BP and MAP stable, plan to titrate levophed down. Pt responsive to pain. Moves all extremities. SR per monitor. OG tube to LIS with liquid brown secretions. Bautista catheter draining clear, yellow urine.
--- NOTE | 2021-03-07 07:52 | NUR ---
Call placed to tobacco drummer supervisor inspection and testing, Dr Barrera, to notify that pt's troponin has increased to 30.6.
--- NOTE | 2021-03-07 08:39 | NUR ---
DR Christina RAMIREZ IN TO SEE PT Updated provider on plan of care. Also discussed troponin.
--- NOTE | 2021-03-07 14:00 | NUR ---
Pt had angiogram, this RN accompanied pt. No intervention performed. Per Dr Barrera, pt has stress cardiomyopathy. Pt now has procedure site to right groin. Perclose placed at end of procedure. Dressed in tegaderm CHG. Site free of drainage/bruising. Color, sensation, pulses, capillary refill equal BLE.
--- NOTE | 2021-03-07 17:00 | NUR ---
Sedation decreased to 40 mcg/kg/min propofol and 0.3 mcg/kg/hr precedex. Pt sat up in bed, and tried reaching for ETT. Did not follow commands when instructed to do so. Sedation increased to 45 mcg/kg/min propofol and 0.3 mcg/kg/hr precedex and this resolved agitation.
--- NOTE | 2021-03-07 19:00 | NUR ---
ASSUMED CARE ASSUMED CARE OF PATIENT. REMAINS INTUBATED- AC 16, TV 325, PEEP 5, FIO2 30%. RR 16. SEDATED WITH PROPOFOL AT 45MCG/KG/MIN AND PRECEDEX AT 0.3MCG/KG/HR. PERIODS OF AGITATION WHEN AWAKE. MOVES ALL EXTREMITIES AND ATTEMPTS TO SIT UP IN BED, BUT DOESN'T FOLLOW COMMANDS AT THIS TIME. BILATERAL SOFT WRIST RESTRAINTS IN PLACE TO PREVENT SELF-EXTUBATION. MONITOR SHOWS NSR, RATE 60s. BP STABLE WITH MAP >65 WITH LEVOPHED AT 3MCG/MIN. OG CLAMPED. RODRIGUEZ PATENT AND DRAINING CLEAR YELLOW URINE. KALE PICC LINE PATENT. SEE SHIFT ASSESSMENT FOR FULL ASSESSMENT.
--- NOTE | 2021-03-07 19:22 | NUR ---
At this time, pt is sedated with 45 mcg/kg/min propofol and 0.3 mcg/kg/hr precedex. Requiring 3 mcg/min levophed to maintain MAP 65 or greater. Ventilator settings AC 16/325/5/30%. SpO2 90% or greater. Moderate amounts of thin brown secretions that resembled OG tube output. Dr Eagle aware. OG tube clamped at this time. Excellent urine output this shift. Right groin site stable. No bruising or hematoma or drainage. Color, sensation, pulses, capillary refill equal BLE. Report given to oncoming RN to assume care, Annabelle.
[2021-03-08 05:31] LABS: BASOPHILS ABSOLUTE AUTO 0.08 K/mm3 (0.00-0.23); BASOPHILS PERCENT AUTO 1 % (0-2); EOSINOPHILS ABSOLUTE AUTO 0.15 K/mm3 (0.00-0.68); EOSINOPHILS PERCENT AUTO 2 % (0-6); Hematocrit 36.8 % (33.0-51.0); Hemoglobin 11.7 g/dL (11.5-16.0); IMMATURE GRAN ABSOLUTE AUTO 0.04 K/mm3 (0.00-0.10); IMMATURE GRAN PERCENT AUTO 0 % (0-1); LYMPHOCYTES ABSOLUTE AUTO 1.53 K/mm3 (0.84-5.20); LYMPHOCYTES PERCENT AUTO 15 % (21-46); MONOCYTES ABSOLUTE AUTO 0.96 K/mm3 (0.16-1.47); MONOCYTES PERCENT AUTO 10 % (4-13); Mean Corpuscular HGB 26.2 pg (26.0-34.0); Mean Corpuscular HGB Conc 31.8 g/dL (31.5-36.5); Mean Corpuscular Volume 83 fL (80-100); Mean Platelet Volume 11.7 fL (9.1-12.4); NEUTROPHILS ABSOLUTE AUTO 7.29 K/mm3 (1.96-9.15); NEUTROPHILS PERCENT AUTO 73 % (41-73); Platelet Count 174 K/mm3 (150-400); RDW Coefficient Variation 17.6 % (11.7-14.2); RDW Standard Deviation 53.1 fL (35.1-46.3); Red Blood Cell Count 4.46 M/mm3 (3.80-5.20); White Blood Cell Count 10.05 K/mm3 (4.00-11.30)
[2021-03-08 05:56] LABS: Albumin, Blood 2.8 g/dL (3.4-5.0); Anion Gap 9 mmol/L (6-16); Blood Urea Nitrogen 32 mg/dL (8-24); Bun/Creatinine Ratio 21.5 (12.0-20.0); CO2, Blood 26 mmol/L (21-32); Calcium, Blood 8.4 mg/dL (8.5-10.1); Chloride, Blood 104 mmol/L (98-108); Creatinine, Blood 1.49 mg/dL (0.40-1.00); Glomerular Filtration Rate 39 (60-); Glucose, Blood 215 mg/dL (70-99); Phosphorus, Blood 4.2 mg/dL (2.5-4.9); Potassium, Blood 3.1 mmol/L (3.5-5.5); Sodium, Blood 139 mmol/L (136-145)
--- NOTE | 2021-03-08 06:37 | NUR ---
SHIFT SUMMARY NO ACUTE CHANGES DURING NOC. REMAINS INTUBATED. SEDATED WITH PROPOFOL BETWEEN 35-45MCG/KG/MIN AND PRECEDEX AT 0.3MCG/KG/HR. PROPOFOL NOW AT 35MCG/KG/MIN. PERIODS OF AGITATION NOTED. PT MOVES ALL EXTREMITIES AND REACHES FOR ETT. ALSO ATTEMPTS TO SIT UP AND CLIMB OUT OF BED. DOES NOT CALM WITH REASSURANCE. BILATERAL SOFT WRIST RESTRAINTS IN PLACE TO PREVENT SELF- EXTUBATION. SBT DONE WITH BOTH PROPOFOL AND PRECEDEX STILL ON D/T AGITATION. MEDICATED WITH ATIVAN X 1 DOSE AND FENTANYL X 1 DOSE SEDATION ADJUNCT. LEVOPHED AT 3MCG/MIN TO MAINTAIN MAP >65. OG CLAMPED. RODRIGUEZ PATENT AND DRAINING CLEAR YELLOW URINE. ZIO PATCH IN PLACE TO CHEST. WILL REPORT TO ONCOMING RN WHEN AVAILABLE.
--- NOTE | 2021-03-08 09:29 | NUR ---
AM NOTE... ASSUMED CARE OF PT AT 0700. PT IS INTUBATED AND SEDATED ON 35 MCG OF PROPOFOL AND 0.3MCG/KG/HR OF PRECEDEX. PT'S VENT SETTINGS ARE AC: 16/325/5/30% WITH O2 SATS >95%. L/S CLEAR T/O SLIGHTLY DIM IN THE BASES. AT THE START OF THIS SHIFT PT WAS ON LEVOPHED AT 3MCG, PT'S MAPS>65, LEVOPHED WAS TITRATED DOWN TO 2 THEN TO STAND BY AT 0849. PT IS IN NSR IN THE 60'S WITH NO ECTOPY NOTED. PT HAS TRACE EDEMA NOTED TO HER BLE/FEET. BT PRESENT AND HYPOACTIVE, ABD IS SOFT AND NONTENDER TO PALP. PT HAS RODRIGUEZ THAT IS PATENT AND DRAINING CLEAR YELLOW URINE TO GRAVITY. PT'S PUPILS ARE 3MM EQUAL BUT NON-REACTIVE TO LIGHT, DURING ASSESSMENT PT ATTEMPTED TO CLOSE HER EYES TO THE FLASH LIGHT BUT NO PUPIL REACTION WAS SEEN. DURING ASSESSMENT THE PT WOKE UP AND STARTED TO SIT UP IN BED, ATTEMPTED TO PULL AT THE ET TUBE AND WAS THRASHING HER LEGS. PROPOFOL WAS INCREASED FROM 35MCG TO 45 MCG, PRECEDEX WAS INCREASED FROM 0.3 MCG/KG/HR TO 0.5MCG/KG/HR. ONCE THE PT SETTLED BACK DOWN AND WAS COMFORTABLE AGAIN (APROX 15 MINS) PROPOFOL WAS TITRATED BACK DOWN TO 35MCG. PT'S BP CONTINUES TO BE STABLE WITH LEVOPHED ON STANDBY. PT'S SON COSMO CALLED AND WAS UPDATED ON PT'S CONDITION AND THE PLAN OF CARE FOR TODAY INCLUDING POSSIBLE EXTUBATION. DR. SMITH UPDATED ON PT'S CONDITON THIS AM WELL. WILL CONTINUE TO MONITOR.
--- NOTE | 2021-03-08 11:19 | NUR ---
PT UPDATE... PT WAS EXTUBATED AT [address] SMITH'S ORDER. RT AT THE BEDSIDE TO EXTUBATION. PT WAS EXTUBATED WITHOUT ISSUE TO RA WITH O2 SATS >93%. PRECEDEX AND PROPOFOL WERE TURNED OFF, LEVOPHED CONTINUES AT 1MCG AT THIS TIME. PT'S VOICE IS SOFT AND HOARSE AT THIS TIME C/O OF A SORE THROAT AND IS ASKING FOR WATER. PT IS NPO UNTIL BEDSIDE SWALLOW EVAL IS DONE AND RISK OF ASPIRATION IS GONE. PT'S SON COSMO CALLED AND UPDATED. WILL CONTINUE TO MONITOR.
--- NOTE | 2021-03-08 13:41 | NUR ---
PT UPDATE.... AT 1330 THIS RN ENTERED THE ROOM TO ROUND ON THE PT. THE PT WAS REQUESTING SOME WATER, THE PT WAS MORE AWAKE THAN BEFORE, THE PT WAS SET UP IN THE BED AT A 90 DEGREE ANGLE, RN BEDSIDE EVALUATION WAS STARTED, THE PT WAS GIVEN 1 TEASPOON OF WATER AND STARTED TO COUGH. THE BEDSIDE SWALLOW EVALUATION WAS STOPPED AT THAT TIME. WHILE THIS RN WAS IN THE ROOM THE PT STARTED TO HIT HER BLANKETS AND STARTED TO BECOME ANXIOUS/AGITATED SAYING "THERE ARE SPIDERS! GET THE SPIDERS OUT OF THE BED!" THIS RN ATTEMPTED TO SHOW THE PT THAT THERE WERE NO SPIDERS IN THE BED HOWEVER THE PT SAID SHE CONTINUED TO SEE THE SPIDERS. THE PT THOUGHT THERE WERE SPIDERS ON THE ORAL SWAB THAT THIS RN WAS ATTEMPTING TO GIVE TO HER. THE PT HAS ALSO BEEN C/O OF FEELING "DIZZY" IN THE BED SAYING THAT HER VISION IS "WARPING" AROUND HER. PROVIDER NOTIFIED. PT'S VS CONTINUE TO BE STABLE, SHE CONTINUES TO BE ON RA WITH O2 SATS >90%. SHE HAS A WEAK COUGH AND HAS BEEN HAVING A HARD TIME CLEARING HER SECRETIONS AFTER COUGHING THEM UP. CALL LIGHT IN REACH, BED ALARM IS ON WILL CONTINUE TO MONITOR.
--- NOTE | 2021-03-08 18:40 | NUR ---
SHIFT SUMMARY... PT'S VS HAVE BEEN STABLE SINCE PT WAS EXTUBATED, PT HAS BEEN IN NSR IN THE 70'S-90'S. SINCE PT WAS EXTUBATED AT 1105 THE PT STARTED HAVING ECTOPY, PVCs AND SHORT RUNS OF VTACH, PT HAS ALSO BEEN C/O OF A "FLUTTERING" FEELING IN HER CHEST. PT'S BP HAS BEEN STABLE SINCE EXTUBATION AND THE SEDATION WAS STOPPED. PT'S HALLUCINATIONS OF SPIDERS HAVE STOPPED AT THIS TIME. A BEDSIDE SWALLOW EVAL WAS DONE BY THIS RN, PT HAS DONE WELL WITH WATER AND APPLE SAUCE. PT HAS BEEN ABLE TO TAKE PILLS WHOLE WITH WATER WITH NO ISSUES THIS AFTERNOON. CARDIOLOGY PROVIDER WAS CALLED IN RELATION TO THE ECTOPY/ RUNS OF VTACH, EGK WAS OBTAINED. PT WAS STARTED ON METOPROLOL XL 25MG BID. PER DIRECTOR OF RESTAURANT SHE WANTS TO BE CALLED IF THE ECTOPY/RUNS OF VTACH DO NOT STOP/DECREASE. PT HAS BEEN ABLE TO MOVE HERSELF AROUND THE BED INDEPENDENTLY. PT HAS A VERY WEAK COUGH AND HAS A HARD TIME COUGHING UP ANY SPUTUM. PT HAS BEEN C/O OF NAUSEA, PT WAS MEDICATED PER EMAR WITH MINIMAL RESULTS. PT'S SON WAS AT THE BEDSIDE FOR VISITING HOURS. PT'S RODRIGUEZ IS PATENT AND DRAINING CLEAR YELLOW TO GRAVITY. PER THE SON THE PT IS NOT COMPLIANT WITH MEDICATIONS AT HOME. EDUCATION PROVIDED TO THE PT ABOUT THE IMPORTANCE OF TAKING MEDICATIONS PRESCRIBED WHEN SHE GOES HOME. CALL LIGHT IN REACH WILL CONTINUE TO MONITOR UNTIL REPORT IS GIVEN TO ONCOMING RN.
[2021-03-08 20:47] LABS: Bun/Creatinine Ratio 20.3 (12.0-20.0); Calcium, Blood 8.5 mg/dL (8.5-10.1); Creatinine, Blood 1.53 mg/dL (0.40-1.00); Magnesium, Blood 1.9 mg/dL (1.6-2.4); Phosphorus, Blood 3.6 mg/dL (2.5-4.9); Potassium, Blood 3.9 mmol/L (3.5-5.5)
[2021-03-09 04:15] LABS: BASOPHILS ABSOLUTE AUTO 0.05 K/mm3 (0.00-0.23); BASOPHILS PERCENT AUTO 1 % (0-2); EOSINOPHILS ABSOLUTE AUTO 0.14 K/mm3 (0.00-0.68); EOSINOPHILS PERCENT AUTO 2 % (0-6); Hematocrit 33.9 % (33.0-51.0); Hemoglobin 10.8 g/dL (11.5-16.0); IMMATURE GRAN ABSOLUTE AUTO 0.03 K/mm3 (0.00-0.10); IMMATURE GRAN PERCENT AUTO 0 % (0-1); LYMPHOCYTES ABSOLUTE AUTO 1.35 K/mm3 (0.84-5.20); LYMPHOCYTES PERCENT AUTO 15 % (21-46); MONOCYTES ABSOLUTE AUTO 1.19 K/mm3 (0.16-1.47); MONOCYTES PERCENT AUTO 14 % (4-13); Mean Corpuscular HGB 26.2 pg (26.0-34.0); Mean Corpuscular HGB Conc 31.9 g/dL (31.5-36.5); Mean Corpuscular Volume 82 fL (80-100); NEUTROPHILS ABSOLUTE AUTO 6.03 K/mm3 (1.96-9.15); NEUTROPHILS PERCENT AUTO 69 % (41-73); Platelet Count 127 K/mm3 (150-400); RDW Coefficient Variation 17.4 % (11.7-14.2); RDW Standard Deviation 52.2 fL (35.1-46.3); Red Blood Cell Count 4.13 M/mm3 (3.80-5.20); White Blood Cell Count 8.79 K/mm3 (4.00-11.30)
[2021-03-09 04:20] LABS: Mean Platelet Volume 11.4 fL (9.1-12.4)
[2021-03-09 04:30] LABS: Albumin, Blood 3.1 g/dL (3.4-5.0); Anion Gap 7 mmol/L (6-16); Blood Urea Nitrogen 29 mg/dL (8-24); Bun/Creatinine Ratio 20.3 (12.0-20.0); CO2, Blood 27 mmol/L (21-32); Calcium, Blood 8.5 mg/dL (8.5-10.1); Chloride, Blood 104 mmol/L (98-108); Creatinine, Blood 1.43 mg/dL (0.40-1.00); Glomerular Filtration Rate 41 (60-); Glucose, Blood 233 mg/dL (70-99); Phosphorus, Blood 3.6 mg/dL (2.5-4.9); Potassium, Blood 3.6 mmol/L (3.5-5.5); Sodium, Blood 138 mmol/L (136-145)
--- NOTE | 2021-03-09 06:35 | NUR ---
VSS. MINIMAL ECTOPY. PT INTERMITTENTLY C/O C/P. DESCRIBES PAIN "ACID REFLUX-LIKE". DOES STATE "MTY HEART FEELS LIKE IT IS FLUTTERING RIGHT NOW" REASSURED PT TELEMETRY WAS MONITORING HER HEART SO WE WOULD KNOW OF CHANGES. OCCASIONAL ECTOPY NOTED. FENTANYL WAS GIVEN FOR CHRONIC BACK PAIN AND PT REPORTED GOOD RELIEF. INTERMITENTLY SLEPT. RESTLESS. CONCERNED W/ BLOOD SUGAR, SORE THROAT, BED AND "HEART CHANGES". ATTEMPTED TO COMFORT PATIENT AND SHE APPEARED TO BE DOING WELL. X1 EMESIS OF SMALL AMOUNT THAT WAS DARKER IN COLOR. GOOD URINE OUTPUT FROM PATENT RODRIGUEZ. CALL LIGHT WITHIN REACH. PT CALLING FAMILY FREQUENTLY.
--- NOTE | 2021-03-09 09:46 | NUR ---
AM NOTE... ASSUMED CARE OF PT AT 0700. PT IS A&Ox4 AND SBA TO THE CHAIR FOR MEALS. PT IS ON RA WITH O2 SATS >90%, L/S CLEAR T/O DIM IN THE BASES, PT HAS A WEAK LOOSE COUGH BUT HAS IMPROVED FROM YESTERDAY. BT PRESENT AND HYPOACTIVE, ABD IS SOFT AND SLIGHTLY TENDER TO PALP AROUND THE AREA OF HER HEPARIN SUB Q INJECTION. PT'S RODRIGUEZ IS PATENT AND DRAINING CLEAR YELLOW URINE TO GRAVITY. PT HAS TRACE EDEMA NOTED TO HER BLE. PT HAS BEEN C/O OF "CHEST PAIN" WHEN ASKED TO DESCRIBE THE CHEST PAIN PT SAYS "IT FEELS LIKE FLUTTERING IN MY CHEST." PT WAS UNABLE TO GIVE A NUMBER ON THE PAIN SCALE FOR HER "CHEST PAIN." THIS WAS REPORTED TO THE PROVIDER. NO CHANGES NOTED ON TELE. PT IS IN NSR WITH PVCs. PT WAS STARTED ON METOPROLOL XL BID LAST NIGHT, SINCE THIS WAS STARTED PVC ACTIVITY HAS DECREASED. PT'S BPs HAVE BEEN STABLE. PT HAS BEEN ANXIOUS AND WILL FIXATE THINGS LIKE HER CHEST DISCOMFORT AND HER CBGs, PT RESPONDED WELL TO 1MG OF IV ATIVAN. CALL LIGHT IN REACH WILL CONTINUE TO MONITOR.
--- NOTE | 2021-03-09 12:31 | NUR ---
pt update... PT TRANSFER TO PCU. PT'S VS STABLE, JENNIFER D/C'd AT 1130 WNL. ALL OF PT'S BELONGINGS PACKED AND SENT WITH THE PT. THIS RN OFFERED TO CALL PT'S FAMILY AND THE PT STATED SHE WOULD CALL THEM AND LET THEM KNOW THAT SHE CHANGED ROOMS. REPORT GIVEN TO OLIVIA Arora RN.
--- NOTE | 2021-03-09 18:07 | NUR ---
END OF SHIFT SUMMARY: GRAIN MILL PRODUCTS INSPECTOR WORKING WITH ASHA BREAUX RN. RECIEVED REPORT FROM ICU AROUND 1130 AND ASSUMED CARE OF PATIENT AROUND 1230. PT IS ALERT AND ORIENTED X4. VSS. NO NEW COMPALINTS FROM PATIENT AT THIS TIME. PATIENT DOES HAVE A SORE THROAT FROM INTUBATION AND IS GETTING CEPACOL LOZENGES WITH SOME RELIEF. PATIENT REPOSITIONS IN BED WITHOUT ISSUES. SHE DID GO FOR A WALK AROUND THE UNIT WITH HER WALKER. PATIENT IS SITTING UP IN BED RESTING COMFORTABLY. BED IS IN THE LOWEST POSITION AND CALL LIGHT IS WITHIN REACH.
--- NOTE | 2021-03-09 23:12 | NUR ---
ASSUMED CARE PT IS ALERT AND ORIENTED. PT STS SHE IS FEELING VERY ANXIOUS. VITALS ARE STABLE. PT DENIES CHEST PAIN OR SOB AND DENIES PAIN OR TENDERNESS IN CALVES. PT IS ABLE TO USE CALL LIGHT APPROPRIETLY, AND IT IS WITHIN REACH. WILL CONTINUE TO MONITOR.
[2021-03-10 04:17] LABS: BASOPHILS ABSOLUTE AUTO 0.03 K/mm3 (0.00-0.23); BASOPHILS PERCENT AUTO 0 % (0-2); EOSINOPHILS ABSOLUTE AUTO 0.26 K/mm3 (0.00-0.68); EOSINOPHILS PERCENT AUTO 4 % (0-6); Hematocrit 32.2 % (33.0-51.0); Hemoglobin 10.2 g/dL (11.5-16.0); IMMATURE GRAN ABSOLUTE AUTO 0.03 K/mm3 (0.00-0.10); IMMATURE GRAN PERCENT AUTO 0 % (0-1); LYMPHOCYTES ABSOLUTE AUTO 1.59 K/mm3 (0.84-5.20); LYMPHOCYTES PERCENT AUTO 21 % (21-46); MONOCYTES ABSOLUTE AUTO 0.95 K/mm3 (0.16-1.47); MONOCYTES PERCENT AUTO 13 % (4-13); Mean Corpuscular HGB 26.3 pg (26.0-34.0); Mean Corpuscular HGB Conc 31.7 g/dL (31.5-36.5); Mean Corpuscular Volume 83 fL (80-100); Mean Platelet Volume 11.7 fL (9.1-12.4); NEUTROPHILS ABSOLUTE AUTO 4.56 K/mm3 (1.96-9.15); NEUTROPHILS PERCENT AUTO 62 % (41-73); Platelet Count 124 K/mm3 (150-400); RDW Coefficient Variation 17.2 % (11.7-14.2); RDW Standard Deviation 52.5 fL (35.1-46.3); Red Blood Cell Count 3.88 M/mm3 (3.80-5.20); White Blood Cell Count 7.42 K/mm3 (4.00-11.30)
[2021-03-10 04:34] LABS: Anion Gap 6 mmol/L (6-16); Blood Urea Nitrogen 35 mg/dL (8-24); Bun/Creatinine Ratio 20.8 (12.0-20.0); CO2, Blood 28 mmol/L (21-32); Calcium, Blood 8.4 mg/dL (8.5-10.1); Chloride, Blood 102 mmol/L (98-108); Creatinine, Blood 1.68 mg/dL (0.40-1.00); Glomerular Filtration Rate 34 (60-); Glucose, Blood 272 mg/dL (70-99); Phosphorus, Blood 3.3 mg/dL (2.5-4.9); Potassium, Blood 3.7 mmol/L (3.5-5.5); Sodium, Blood 136 mmol/L (136-145)
--- NOTE | 2021-03-10 05:07 | NUR ---
SHIFT SUMMARY PT IS ALERT AND ORIENTED. THERE HAVE BEEN NO ACUTE CHANGES. VITALS SIGNS ARE STABLE AND ON ROOM AIR. PT DENIES CHEST PAIN OR SOB. PT REPORTS JAW AND MOUTH PAIN STS THAT IT IS POSSIBLY FROM INTUBATION. DURING THE EVENING PT STATED THAT SHE WAS FEELING ANXIOUS. SHE STATES THAT IT HAS GOTTEN BETTER BUT HAS NOT RESOLVED COMPLETELY. PT IS AD EMELIA IN ROOM AND USES CALL LIGHT APRROPRIETLY. THERE IS NOT BM RECORDED AND PT STATES THAT SHE HAS NOT HAD A BOWEL MOVEMENT DURING HER STAY.
[2021-03-10 09:54] LABS: Source, Urine Voided
[2021-03-10 10:02] LABS: Bilirubin, Urine Neg (Neg); Blood, Urine Neg (Neg); Glucose Qualitative, Urine 2+ (Neg); Ketones, Urine 1+ (Neg); Leukocyte Esterase, Urine 2+ (Neg); Nitrite, Urine Neg (Neg); Protein, Urine 2+ (Neg); Urobilinogen, Urine NORM (Normal)
[2021-03-10 10:10] LABS: Appearance, Urine Hazy (Clear); Color, Urine Yellow (P-Yellow)
[2021-03-10 10:16] LABS: Hyaline Casts 50-100 /lpf (0-2)
[2021-03-10 10:17] LABS: Bacteria Mod /hpf; Mucus Mod (0-Heavy); Red Blood Cells, Urine 0-2 /hpf (0-2); Squamous Epithelial Cells Mod /hpf (Few)
[2021-03-10] MEDS ORDERED: HUMALOG KW100 UNIT/1 SC (12:31)
[2021-03-10] MEDS ORDERED: FURO40 PO (12:36)
[2021-03-10] MEDS ORDERED: BENMENLOZ MT (12:44)
[2021-03-10] MEDS ORDERED: METO25 PO (12:44)
[2021-03-10] MEDS ORDERED: SULTRIDS PO (12:45)
--- NOTE | 2021-03-10 13:19 | NUR ---
NO ACUTE EVENTS, VSS. PATIENT ALERT AND ORIENTED, DENIES CHEST PAIN, AND INDEPENDENT IN ROOM. PATIENT PROVIDED DISCHARGE INFO REGARDING FOLLOW UP PLANS, REASONS TO RETURN TO THE HOSPITAL, AND MEDICATION INFORMATION. PATIENT VERBALIZED UNDERSTANDING, NO SIGNS OF ACUTE DISTRESS. PATIENT HAS CALLED [facility] FOR SELF FOR WHICH SHE IS AGREEABLE, AND WILL BE ESCORTED TO ENTRANCE WHEN [facility] ARRIVES.
== END 2021-03-10 13:22 | disposition home health service (06) | DRG 280 ==
LOC: ER 05:29 → ICUW 09:36 → ICUE 09:36 → PCU 03-09 12:24 → ENPENDDIS 03-10 12:05 → PCU 03-10 13:22
PROVIDERS: Emergency Medicine; Family Medicine; Internal Medicine Critical Care Medicine; Nurse Practitioner Acute Care; Student in an Organized Health Care Education/Training Program; ADMIT Internal Medicine
PROC: 0BH18EZ Insertion of Endotracheal Airway into Trachea, Via Natural or Artificial Opening Endoscopic (ICD-10-PCS; 2021-03-06)
PROC: 5A1945Z Respiratory Ventilation, 24-96 Consecutive Hours (ICD-10-PCS; 2021-03-06)
PROC: 3E033XZ Introduction of Vasopressor into Peripheral Vein, Percutaneous Approach (ICD-10-PCS; 2021-03-06)
PROC: 02H633Z Insertion of Infusion Device into Right Atrium, Percutaneous Approach (ICD-10-PCS; 2021-03-06)
PROC: B548ZZA Ultrasonography of Superior Vena Cava, Guidance (ICD-10-PCS; 2021-03-06)
PROC: 4A023N7 Measurement of Cardiac Sampling and Pressure, Left Heart, Percutaneous Approach (ICD-10-PCS; principal; 2021-03-07)
PROC: B211YZZ Fluoroscopy of Multiple Coronary Arteries using Other Contrast (ICD-10-PCS; 2021-03-07)
PROC: B212YZZ Fluoroscopy of Single Coronary Artery Bypass Graft using Other Contrast (ICD-10-PCS; 2021-03-07)
DX: I21.4 Non-ST elevation (NSTEMI) myocardial infarction (principal); I50.21 Acute systolic (congestive) heart failure; J96.01 Acute respiratory failure with hypoxia; R57.0 Cardiogenic shock; I13.0 Hypertensive heart and chronic kidney disease with heart failure and stage 1 through stage 4 chronic kidney disease, or unspecified chronic kidney disease; N17.9 Acute kidney failure, unspecified; N39.0 Urinary tract infection, site not specified; I51.81 Takotsubo syndrome; Z20.822 Contact with and (suspected) exposure to COVID-19; J44.9 Chronic obstructive pulmonary disease, unspecified; N18.30 Chronic kidney disease, stage 3 unspecified; E87.6 Hypokalemia; F41.9 Anxiety disorder, unspecified; I25.10 Atherosclerotic heart disease of native coronary artery without angina pectoris; E10.22 Type 1 diabetes mellitus with diabetic chronic kidney disease; E10.43 Type 1 diabetes mellitus with diabetic autonomic (poly)neuropathy; K31.84 Gastroparesis; Z88.5 Allergy status to narcotic agent; Z88.8 Allergy status to other drugs, medicaments and biological substances; Z91.012 Allergy to eggs; Z95.1 Presence of aortocoronary bypass graft; Z98.890 Other specified postprocedural states; K21.9 Gastro-esophageal reflux disease without esophagitis; F41.1 Generalized anxiety disorder; Z79.899 Other long term (current) drug therapy; Z79.4 Long term (current) use of insulin; E10.40 Type 1 diabetes mellitus with diabetic neuropathy, unspecified
CPT/HCPCS: 31500; 31720; 36569; 36600; 51702; 71045; 76937; 80048; 80053; 80069; 81001; 82803; 82947; 83605; 83690; 83735; 83880; 84100; 84145; 84484; 85014; 85018; 85025; 85610; 85651; 85730; 86140; 87086; 93005; 93010; 93246; 93308; 93459; 93970; 94002; 94003; 94640; 96361-59; 96365-59; 96368; 96375-59; 96376-59; 97161; 97530; 99152; 99153; 99285-25; A9270; C1751; C1760; C1769; C1894; C9113; J0330; J1170; J1644; J1815; J1940; J2060; J2250; J2405; J2704; J3010; J3475; J3480; J7030; J7040; J7050; J7060; Q9967; U0004

== ENCOUNTER 2021-03-13 14:03 | Observation (INO) | payer MEDICARE, OTHER ==
[~2021-03-13] VITALS: Ht 165.1 cm; Wt 59.0 kg
[~2021-03-13 14:03] MED LIST changes: +ALPRAZOLAM0.5 M1 PO; +BASAGLAR K100 UNIT/3 SC; +BENMENLOZ MT; +GABA100 PO; +HUMALOG KW100 UNIT/1 SC; +METO25 PO; +Ondansetron Odt8 MG PO; +SULTRIDS PO; +TORSE20 PO
[2021-03-13 14:43] LABS: BASOPHILS ABSOLUTE AUTO 0.06 K/mm3 (0.00-0.23); BASOPHILS PERCENT AUTO 1 % (0-2); EOSINOPHILS ABSOLUTE AUTO 0.13 K/mm3 (0.00-0.68); EOSINOPHILS PERCENT AUTO 2 % (0-6); Hematocrit 34.7 % (33.0-51.0); IMMATURE GRAN ABSOLUTE AUTO 0.05 K/mm3 (0.00-0.10); IMMATURE GRAN PERCENT AUTO 1 % (0-1); LYMPHOCYTES ABSOLUTE AUTO 1.94 K/mm3 (0.84-5.20); LYMPHOCYTES PERCENT AUTO 24 % (21-46); MONOCYTES ABSOLUTE AUTO 0.98 K/mm3 (0.16-1.47); MONOCYTES PERCENT AUTO 12 % (4-13); Mean Corpuscular HGB 26.3 pg (26.0-34.0); Mean Corpuscular HGB Conc 31.7 g/dL (31.5-36.5); Mean Corpuscular Volume 83 fL (80-100); Mean Platelet Volume 11.6 fL (9.1-12.4); NEUTROPHILS ABSOLUTE AUTO 4.81 K/mm3 (1.96-9.15); NEUTROPHILS PERCENT AUTO 60 % (41-73); Platelet Count 143 K/mm3 (150-400); RDW Coefficient Variation 16.9 % (11.7-14.2); RDW Standard Deviation 51.2 fL (35.1-46.3); Red Blood Cell Count 4.19 M/mm3 (3.80-5.20); White Blood Cell Count 7.97 K/mm3 (4.00-11.30)
[2021-03-13 15:12] LABS: Albumin, Blood 3.4 g/dL (3.4-5.0); Albumin/Globulin Ratio 0.8 (0.8-1.8); Bilirubin, Total 0.3 mg/dL (0.1-1.0); Bun/Creatinine Ratio 25.3 (12.0-20.0); Calcium, Blood 8.9 mg/dL (8.5-10.1); Creatinine, Blood 2.21 mg/dL (0.40-1.00); Potassium, Blood 3.8 mmol/L (3.5-5.5); Total Protein, Blood 7.4 g/dL (6.4-8.2)
[2021-03-13 15:17] LABS: Troponin I 1.44 ng/mL (0.000-0.040)
[2021-03-13] MEDS ORDERED: Prinivil10 MG PO (15:22)
[2021-03-13] MEDS ORDERED: TORSE20 PO (15:26)
[2021-03-13] MEDS ORDERED: FURO20 PO (20:18)
[2021-03-13] MEDS ORDERED: MAGNESIUM OXID500 MG PO (20:19)
[2021-03-13] MEDS ORDERED: NITR.4SL SL (20:19)
[2021-03-13] MEDS ORDERED: SIME80CH PO (20:20)
[2021-03-14 00:01] LABS: Troponin I 1.24 ng/mL (0.000-0.040)
[2021-03-14 07:16] LABS: BASOPHILS ABSOLUTE AUTO 0.03 K/mm3 (0.00-0.23); BASOPHILS PERCENT AUTO 0 % (0-2); EOSINOPHILS PERCENT AUTO 0 % (0-6); Hematocrit 38.5 % (33.0-51.0); Hemoglobin 12.2 g/dL (11.5-16.0); IMMATURE GRAN ABSOLUTE AUTO 0.06 K/mm3 (0.00-0.10); IMMATURE GRAN PERCENT AUTO 1 % (0-1); LYMPHOCYTES ABSOLUTE AUTO 0.92 K/mm3 (0.84-5.20); LYMPHOCYTES PERCENT AUTO 9 % (21-46); MONOCYTES ABSOLUTE AUTO 0.42 K/mm3 (0.16-1.47); MONOCYTES PERCENT AUTO 4 % (4-13); Mean Corpuscular HGB 26.8 pg (26.0-34.0); Mean Corpuscular HGB Conc 31.7 g/dL (31.5-36.5); Mean Corpuscular Volume 84 fL (80-100); Mean Platelet Volume 12.2 fL (9.1-12.4); NEUTROPHILS ABSOLUTE AUTO 9.39 K/mm3 (1.96-9.15); NEUTROPHILS PERCENT AUTO 87 % (41-73); Platelet Count 190 K/mm3 (150-400); RDW Coefficient Variation 16.9 % (11.7-14.2); RDW Standard Deviation 52.3 fL (35.1-46.3); Red Blood Cell Count 4.56 M/mm3 (3.80-5.20); White Blood Cell Count 10.82 K/mm3 (4.00-11.30)
[2021-03-14 07:46] LABS: Albumin, Blood 3.4 g/dL (3.4-5.0); Albumin/Globulin Ratio 0.8 (0.8-1.8); Bilirubin, Total 0.3 mg/dL (0.1-1.0); Bun/Creatinine Ratio 26.7 (12.0-20.0); Creatinine, Blood 2.02 mg/dL (0.40-1.00); Globulin, Blood 4.4 g/dL (2.2-4.0); Potassium, Blood 4.3 mmol/L (3.5-5.5); Total Protein, Blood 7.8 g/dL (6.4-8.2)
[2021-03-14 07:49] LABS: Troponin I 0.939 ng/mL (0.000-0.040)
--- NOTE | 2021-03-14 08:00 | NUR ---
PT SITTING UP IN BED AWAKE A/OX3, COOPERATIVE WITH CARE, FOLLOWS COMMANDS WELL, DENIES PAIN, STATES HER BREATHING IS OK, LUNGS ARE SLIGHTLY COURSE T/O, RESP EVEN AND UNLABORED, IS CURRENTLY ON R/A, RESP EVEN AND UNLABORED, OCC NONPRODUCTIVE COUGH, HRR, TELE IN PLACE RUNNING SR PER MONITOR, SEE STRIP, NO EDEMA NOTED, PPP+2, CAP REFILL <3SEC, VS STABLE, AFEBRILE, IV SITE IS CLEAR AND PATENT, BTX4, ABD FLAT SOFT NONTENDER, VOIDS WITHOUT DIFF, SKIN C/W/D, MAEW, DEBI CALL LIGHT IN REACH.
--- NOTE | 2021-03-14 11:02 | NUR ---
limited echocardiogram complete
[2021-03-14 18:58] LABS: Bun/Creatinine Ratio 26.6 (12.0-20.0); Calcium, Blood 9.5 mg/dL (8.5-10.1); Creatinine, Blood 2.03 mg/dL (0.40-1.00); Potassium, Blood 3.9 mmol/L (3.5-5.5)
--- NOTE | 2021-03-14 19:24 | NUR ---
PT WAS HOPING TO GO HOME TODAY, CALLED WILL BE TOMORROW AM, PT OK WITH THAT, DID REQUEST A XANEX, THIS WAS GIVEN, CALL LIGHT IN REACH.
[2021-03-15 00:43] LABS: Source, Urine Clean Catch
[2021-03-15 00:44] LABS: Bilirubin, Urine Neg (Neg); Blood, Urine Neg (Neg); Glucose Qualitative, Urine 4+ (Neg); Ketones, Urine Neg (Neg); Leukocyte Esterase, Urine Neg (Neg); Nitrite, Urine Neg (Neg); Protein, Urine 1+ (Neg); Specific Gravity, Urine 1.015 (1.003-1.022); Urobilinogen, Urine NORM (Normal)
[2021-03-15 00:51] LABS: Appearance, Urine Clear (Clear); Color, Urine Yellow (P-Yellow)
[2021-03-15 04:22] LABS: Anion Gap 3 mmol/L (6-16); Blood Urea Nitrogen 47 mg/dL (8-24); Bun/Creatinine Ratio 26.9 (12.0-20.0); CO2, Blood 30 mmol/L (21-32); Calcium, Blood 8.7 mg/dL (8.5-10.1); Chloride, Blood 101 mmol/L (98-108); Creatinine, Blood 1.75 mg/dL (0.40-1.00); Glomerular Filtration Rate 32 (60-); Glucose, Blood 419 mg/dL (70-99); Phosphorus, Blood 3.4 mg/dL (2.5-4.9); Potassium, Blood 4.8 mmol/L (3.5-5.5); Sodium, Blood 134 mmol/L (136-145)
--- NOTE | 2021-03-15 08:00 | NUR ---
PT SITTING UP ON THE SIDE OF THE BED, UP AD EMELIA IN ROOM, A/OX3, PLEASANT AND COOPERATIVE WITH CARE, FOLLOWS COMMANDS WELL, REPORTS THROAT PAIN WITH SWALLOWING, LUNGS ARE CLEAR T/O, RESP EVEN AND UNLAOBRED, ON R/A, NO COUGH NOTED AT THIS TIME, HRR, TELE IN PLACE RUNNING SR PER MONITOR, SEE STRIP, NO EDEMA NOTED, PPP+2, CAP REFILL <3SEC, VS STABLE, AFEBRILE, IV SITE IS CLEAR AND PATENT, BTX4, ABD FLAT SOFT NONTENDER, VOIDS WITHOUT DIFF, SKIN C/W/D, MAEW, DEBI, CALL LIGHT IN REACH.
[2021-03-15] MEDS ORDERED: Prednisone10 MG PO (11:00)
[2021-03-15] MEDS ORDERED: BENMENLOZ MT (11:00)
--- NOTE | 2021-03-15 11:39 | NUR ---
pt has been discharged to home, she is very anxious to leave so doesn't want lunch, new meds have been called in to her pharmacy, she understands to call to make appt with her pcp on for follow up appt. iv removed intact, is getting dressed and called for a ride, went over her instructions with her, she verbalized understanding. asked her to call staff when she is ready for a wheelchair out to the car.
== END 2021-03-15 11:40 | disposition home or self-care (01) ==
LOC: ER 14:03 → ERHOLD 14:04 → PCU 19:46
PROVIDERS: Family Medicine; Physician Assistant; ADMIT Internal Medicine
DX: J96.91 Respiratory failure, unspecified with hypoxia (principal); J44.1 Chronic obstructive pulmonary disease with (acute) exacerbation; E10.22 Type 1 diabetes mellitus with diabetic chronic kidney disease; I13.0 Hypertensive heart and chronic kidney disease with heart failure and stage 1 through stage 4 chronic kidney disease, or unspecified chronic kidney disease; I50.21 Acute systolic (congestive) heart failure; N18.30 Chronic kidney disease, stage 3 unspecified; N17.9 Acute kidney failure, unspecified; I25.10 Atherosclerotic heart disease of native coronary artery without angina pectoris; R77.8 Other specified abnormalities of plasma proteins; E10.43 Type 1 diabetes mellitus with diabetic autonomic (poly)neuropathy; K31.84 Gastroparesis; E78.5 Hyperlipidemia, unspecified; I25.2 Old myocardial infarction; K21.9 Gastro-esophageal reflux disease without esophagitis; Z91.012 Allergy to eggs; Z88.5 Allergy status to narcotic agent; Z88.8 Allergy status to other drugs, medicaments and biological substances; Z91.018 Allergy to other foods; Z95.1 Presence of aortocoronary bypass graft
CPT/HCPCS: 36415; 71046; 76770; 80048; 80053; 80069; 82550; 82947; 83880; 84484; 85025; 93005; 93010; 93308; 94640; 94664; 94667; 94760; 96372; 96374; 96375; 99285-25; A9270; G0378; J1650; J2405; J2930; J3010; J7030; J7512

== ENCOUNTER 2021-04-29 14:26 | Inpatient (IN) | payer MEDICARE, OTHER ==
[~2021-04-29] VITALS: Ht 165.1 cm; Wt 59.0 kg
[~2021-04-29 14:26] MED LIST changes: +MAGNESIUM OXID500 MG PO; +NITR.4SL SL; +Prednisone10 MG PO; +Prinivil10 MG PO; +SIME80CH PO
[2021-04-29 15:00] LABS: BASOPHILS ABSOLUTE AUTO 0.07 K/mm3 (0.00-0.23); BASOPHILS PERCENT AUTO 0 % (0-2); EOSINOPHILS PERCENT AUTO 0 % (0-6); Hematocrit 36.8 % (33.0-51.0); Hemoglobin 11.5 g/dL (11.5-16.0); IMMATURE GRAN ABSOLUTE AUTO 0.74 K/mm3 (0.00-0.10); IMMATURE GRAN PERCENT AUTO 4 % (0-1); LYMPHOCYTES ABSOLUTE AUTO 0.33 K/mm3 (0.84-5.20); LYMPHOCYTES PERCENT AUTO 2 % (21-46); MONOCYTES ABSOLUTE AUTO 1.24 K/mm3 (0.16-1.47); MONOCYTES PERCENT AUTO 6 % (4-13); Mean Corpuscular HGB Conc 31.3 g/dL (31.5-36.5); Mean Corpuscular Volume 83 fL (80-100); NEUTROPHILS ABSOLUTE AUTO 19.03 K/mm3 (1.96-9.15); NEUTROPHILS PERCENT AUTO 89 % (41-73); Platelet Count 180 K/mm3 (150-400); RDW Coefficient Variation 15.9 % (11.7-14.2); RDW Standard Deviation 48.6 fL (35.1-46.3); Red Blood Cell Count 4.42 M/mm3 (3.80-5.20); White Blood Cell Count 21.41 K/mm3 (4.00-11.30)
[2021-04-29 15:25] LABS: Bun/Creatinine Ratio 27.3 (12.0-20.0); Calcium, Blood 9.3 mg/dL (8.5-10.1); Creatinine, Blood 2.78 mg/dL (0.40-1.00); Globulin, Blood 3.9 g/dL (2.2-4.0); Potassium, Blood 4.3 mmol/L (3.5-5.5); Total Protein, Blood 7.9 g/dL (6.4-8.2)
[2021-04-29 15:45] LABS: International Normalized Ratio 0.99; Prothrombin Time Results 10.7 Sec (9.7-11.5)
[2021-04-29] MEDS ORDERED: BUMETANIDE2 M3 PO (16:00)
[2021-04-29] MEDS ORDERED: NOVOLOG FL100 UNIT/3 SC (16:00)
[2021-04-29] MEDS ORDERED: KLOR-CON 1010 ME3 PO (16:01)
[2021-04-29 17:36] LABS: SARS-Cov-2 (COVID-19) PCR, MMC NEGATIVE (NEGATIVE)
--- NOTE | 2021-04-29 19:06 | NUR ---
REPORT RECEIVED FROM PAINTER SET LILY. ARRIVED VIA GURNEY AT 1830 AND TRANSFERED TO BED WITH 1 PERSON ASSIST. A/O X 4. SHE HAS 2+ EDEMA TO BLE WITH ULCER/ SORES PRESENT. REPORTED PAIN 8/10 IN LOWER LEGS AND CHEST. TYLENOL GIVEN. Cindi WAS CONCERNED ABOUT GETTING LACTATED RINGERS SINCE SHE RECEIVED IV FLUIDS IN THE ER AND DID NOT WANT TO GET FLUID OVERLOADED DUE TO CKD. REPORT GIVEN TO BABITA TOBIAS AND REQUESTED SHE GET CLARIFICATION ON LR.
[2021-04-29] MEDS ORDERED: POTA10T PO (19:51)
[2021-04-29] MEDS ORDERED: ONDA4ODT PO (19:55)
--- NOTE | 2021-04-29 20:15 | NUR ---
PHYSICIAN NOTIFY COIL MACHINE SUPERVISOR PROVIDER NOTIFIED GLUCOSE 398. NEW ORDER FOR OT DOSE OF LOW SS INSULIN.
[2021-04-29 21:12] LABS: Base Excess Venous 3.1 mmol/L; Bicarbonate Venous 26.7 mmol/L (24.0-30.0); PCO2 Venous 42.8 mmHg (38-42); PO2 Venous 55.6 mmHg (38-42); pH Blood Venous 7.42 (7.34-7.37)
--- NOTE | 2021-04-29 21:50 | NUR ---
PHYSICIAN NOTIFY PROFESSOR OF THEOLOGY RESIDENT NOTIFIED CRITICAL HIGH TROPONIN OF 2.76. DR. CASAREZ AT BEDSIDE TO ASSESS, NEW ORDERS TO CONTINUE TRENDING TROPONINS. PT DENIES CHEST PAIN AT THIS TIME.
[2021-04-30 03:05] LABS: BASOPHILS ABSOLUTE AUTO 0.06 K/mm3 (0.00-0.23); BASOPHILS PERCENT AUTO 0 % (0-2); EOSINOPHILS PERCENT AUTO 0 % (0-6); Hematocrit 35.5 % (33.0-51.0); Hemoglobin 10.8 g/dL (11.5-16.0); IMMATURE GRAN ABSOLUTE AUTO 0.18 K/mm3 (0.00-0.10); IMMATURE GRAN PERCENT AUTO 1 % (0-1); LYMPHOCYTES ABSOLUTE AUTO 0.45 K/mm3 (0.84-5.20); LYMPHOCYTES PERCENT AUTO 3 % (21-46); MONOCYTES ABSOLUTE AUTO 0.52 K/mm3 (0.16-1.47); MONOCYTES PERCENT AUTO 3 % (4-13); Mean Corpuscular HGB 25.7 pg (26.0-34.0); Mean Corpuscular HGB Conc 30.4 g/dL (31.5-36.5); Mean Corpuscular Volume 85 fL (80-100); Mean Platelet Volume 12.6 fL (9.1-12.4); NEUTROPHILS ABSOLUTE AUTO 16.55 K/mm3 (1.96-9.15); NEUTROPHILS PERCENT AUTO 93 % (41-73); Platelet Count 166 K/mm3 (150-400); RDW Standard Deviation 49.7 fL (35.1-46.3); White Blood Cell Count 17.76 K/mm3 (4.00-11.30)
[2021-04-30 03:23] LABS: Alanine Aminotransfer (ALT/SGP 27 U/L (12-78); Albumin, Blood 3.4 g/dL (3.4-5.0); Albumin/Globulin Ratio 0.8 (0.8-1.8); Alk Phos 121 U/L (50-136); Anion Gap 11 mmol/L (6-16); Aspartate Aminotrans (AST/SGOT 24 U/L (12-37); Bilirubin, Total 0.8 mg/dL (0.1-1.0); Blood Urea Nitrogen 86 mg/dL (8-24); Bun/Creatinine Ratio 22.9 (12.0-20.0); CO2, Blood 27 mmol/L (21-32); Calcium, Blood 8.7 mg/dL (8.5-10.1); Chloride, Blood 94 mmol/L (98-108); Creatinine, Blood 3.75 mg/dL (0.40-1.00); Glomerular Filtration Rate 13 (60-); Glucose, Blood 469 mg/dL (70-99); Potassium, Blood 4.8 mmol/L (3.5-5.5); Sodium, Blood 132 mmol/L (136-145); Total Protein, Blood 7.4 g/dL (6.4-8.2); Vancomycin, Random 21.3 ug/mL
--- NOTE | 2021-04-30 03:30 | NUR ---
PHYSICIAN NOTIFY ENROLLMENT MANAGEMENT VICE PRESIDENT RESIDENT NOTIFIED GLUCOSE OF 469 THIS AM. OT ORDER PLACED PER MED SS. DECREASING RENAL FUNCTION NOTED ON AM LABS, NEW ORDER FOR 1L FLUIDS.
--- NOTE | 2021-04-30 03:45 | NUR ---
PHYSICIAN NOTIFY HAND CLERICAL VERIFIER RESIDENT NOTIFIED CRITICAL HIGH TROPONIN OF 3.520. NO NEW ORDERS AT THIS TIME. CONT. TRENDING TROPONIN.
--- NOTE | 2021-04-30 05:48 | NUR ---
PHYSICIAN CONTACT JOB INTERVIEWER HOSPITALIST NOTIFIED OF POSITIVE BLOOD CULTURE RESULTS GRAM POSITIVE COCCI IN CHAINS.
--- NOTE | 2021-04-30 07:46 | NUR ---
VO from : Place pt on telemetry. Order placed.
[2021-04-30 10:33] LABS: Albumin, Blood 3.2 g/dL (3.4-5.0); Anion Gap 11 mmol/L (6-16); Blood Urea Nitrogen 92 mg/dL (8-24); Bun/Creatinine Ratio 23.9 (12.0-20.0); CO2, Blood 24 mmol/L (21-32); Calcium, Blood 8.5 mg/dL (8.5-10.1); Chloride, Blood 97 mmol/L (98-108); Creatinine, Blood 3.85 mg/dL (0.40-1.00); Glomerular Filtration Rate 12 (60-); Glucose, Blood 431 mg/dL (70-99); Potassium, Blood 4.2 mmol/L (3.5-5.5); Sodium, Blood 132 mmol/L (136-145)
--- NOTE | 2021-04-30 14:42 | NUR ---
pATIENT MOVED TO ROOM 363. VERIFIED ROOM CHANGE WITH SCHOOL HEALTH AIDE.
--- NOTE | 2021-04-30 16:57 | NUR ---
Surgical consult: VO received from Dr. Pinedo to place surgical consult now for permacath placement for dialysis. Order placed and called Dr. Sanchez's office and reported order to Brian.
--- NOTE | 2021-04-30 17:46 | NUR ---
RN NOTE: Pt placed on NPO status for surgical consult. Pt notified of NPO status. Per pt last oral intake was around 3 pm. ASSISTANT BRANCH OPERATIONS MANAGER notified and status board updated.
--- NOTE | 2021-04-30 18:20 | NUR ---
RN SHIFT NOTE: Pt A/O, standby assist. Pt up to bathroom this AM and steady on feet. IV fluids stopped per VO from Dr. Russo this morning. Pt reports N/V is controlled with zofran 8 mg at this time. Pt consult with Dr. Pinedo completed this afternoon. Surgical consult for permacath placement placed today with Dr. Sanchez. Pt placed on NPO status. No oral intake since 1500 per pt. Pt reports no pain since nausea is controlled. today with Dr. Sanchez.
--- NOTE | 2021-04-30 18:37 | NUR ---
POST VOID BLADDER SCAN RESULT: 38
[2021-05-01 05:14] LABS: Hemoglobin 9.7 g/dL (11.5-16.0)
--- NOTE | 2021-05-01 05:36 | NUR ---
SHIFT SUMMARY: AOX3, NO PAIN. VS SHOWED BP 96-110 SBP. DENIED LIGHTHEADNESS. LUNG SOUNDS CLEAR. HR SINUS. BLE +1 EDEMA. SEVERAL VENOUS STATUS ULCERS TO BLE ALL BUT ONE IS SCABBED OVER. LEGS DO HAVE WARMTH AND SWELLING. WAS NPO IN PREP OF PROCEDURE. THIS WAS CANCELED FOR THE NIGHT. SHE WAS ABLE TO EAT SOME FOOD BEFORE BEING NPO AGAIN AT MIDNIGHT. ZOFRAN FOR CHRONIC NAUSEA DUE TO GASTROPARESIS. PLANNED PERMACATH PROCEDURE TODAY, THEN GET SET UP WITH [facility]. TROPONINS TRENDING DOWN, LAST WAS 3.050. BLOOD SUGAR AVERAGE IS IN THE 300'S. LITTLE URINE OUTPUT. POSITIVE BLOOD CULUTRES. SLEPT MOST OF THE NIGHT. WILL GIVE REPORT TO ONCOMING RN. CALL LIGHT IN REACH.
[2021-05-01 05:41] LABS: Albumin, Blood 2.8 g/dL (3.4-5.0); Anion Gap 8 mmol/L (6-16); Blood Urea Nitrogen 102 mg/dL (8-24); Bun/Creatinine Ratio 29.1 (12.0-20.0); CO2, Blood 26 mmol/L (21-32); Calcium, Blood 8.5 mg/dL (8.5-10.1); Chloride, Blood 99 mmol/L (98-108); Glomerular Filtration Rate 14 (60-); Glucose, Blood 376 mg/dL (70-99); Magnesium, Blood 2.2 mg/dL (1.6-2.4); Phosphorus, Blood 3.3 mg/dL (2.5-4.9); Sodium, Blood 133 mmol/L (136-145)
[2021-05-01 08:44] LABS: BASOPHILS ABSOLUTE AUTO 0.07 K/mm3 (0.00-0.23); BASOPHILS PERCENT AUTO 1 % (0-2); EOSINOPHILS ABSOLUTE AUTO 0.04 K/mm3 (0.00-0.68); EOSINOPHILS PERCENT AUTO 0 % (0-6); Hematocrit 30.9 % (33.0-51.0); Hemoglobin 9.7 g/dL (11.5-16.0); IMMATURE GRAN ABSOLUTE AUTO 0.05 K/mm3 (0.00-0.10); IMMATURE GRAN PERCENT AUTO 0 % (0-1); LYMPHOCYTES ABSOLUTE AUTO 0.89 K/mm3 (0.84-5.20); LYMPHOCYTES PERCENT AUTO 8 % (21-46); MONOCYTES ABSOLUTE AUTO 0.89 K/mm3 (0.16-1.47); MONOCYTES PERCENT AUTO 8 % (4-13); Mean Corpuscular HGB 26.1 pg (26.0-34.0); Mean Corpuscular HGB Conc 31.4 g/dL (31.5-36.5); Mean Corpuscular Volume 83 fL (80-100); NEUTROPHILS ABSOLUTE AUTO 9.66 K/mm3 (1.96-9.15); NEUTROPHILS PERCENT AUTO 83 % (41-73); Platelet Count 145 K/mm3 (150-400); RDW Coefficient Variation 16.1 % (11.7-14.2); RDW Standard Deviation 49.3 fL (35.1-46.3); Red Blood Cell Count 3.72 M/mm3 (3.80-5.20)
[2021-05-01 08:46] LABS: Mean Platelet Volume 14.7 fL (9.1-12.4)
--- NOTE | 2021-05-01 12:37 | NUR ---
PATIENT OFF UNIT AT 1220 VIA RZILLAH TO DAY SURGERY.
--- NOTE | 2021-05-01 13:07 | NUR ---
History, Chart, Medications and Allergies reviewed before start of procedure. Lungs clear T/O to Auscultation. Patient confirms NPO status and agrees with scheduled surgery. Pre-Op teaching done. Pt verbalizes understanding.
--- NOTE | 2021-05-01 17:09 | NUR ---
SPOKE WITH PATIENT'S SISTER SEVEN , GAVE UPDATE ON PT'S CONDITION. SEVEN STATED THAT SHE AND PT ARE PLANNING A TRIP TO [place] AND [place] IN EARLY MAY, PLANNING TO BE GONE UNTIL . EXPLAINED TO HER THAT PATIENTS ON DIALYSIS NEED TO STICK TO THEIR DIALYSIS SCHEDULE, BUT IT MAY BE POSSIBLE TO ARRANGE FOR DIALYSIS OUT OF STATE. WILL F/U WITH SUPERVISOR POULTRY HATCHERY OR DIALYSIS SW AT EARLIEST CONVENIENCE.
--- NOTE | 2021-05-01 19:25 | NUR ---
SHIFT SUMMARY: PERMA CATH PLACED TODAY, HAD FIRST DIALYSIS TREATMENT. R UPPER CHEST SITE OOZING BLOOD, DRESSING REINFORCED WITH TELFA GAUZE AND TEGADERM. NO EVENTS ON TELEMETRY, SR 60'S. C/O PERSISTENT NAUSEA; MEDICATED PER EMAR, WAS ABLE TO EAT DINNER. HAD BEEN GETTING UP TO BR INDEPENDENTLY, BUT AFTER FINISHING DIALYSIS TODAY C/O SOME DIZZINESS SO WAS EDUCATED TO CALL NURSING STAFF TO HELP PRIOR TO GETTING OOB, VERBALIZED AGREEMENT AND UNDERSTANDING.
--- NOTE | 2021-05-02 04:31 | NUR ---
SUMMARY: PT A/OX4, CALLS APPROPRIATELY AND IS PLEASANT/COOPERATIVE W/CARE. SHE'S SBA OOB D/T NEW C/O WEAKNESS AND OCC DIZZYNESS FOLLOWING [facility] RECIEVED ON DAY SHIFT. NEW PERMCATH IS PRESENT TO R.CW W/CONT'D OOZING BLOOD OCCURING AT SITE. DX HAS BEEN REINFORCED W/PRESSURE APPLIED AND BLEEDING SEEMS TO HAVE SLOWED/SUBSIDED. TYLENOL RECIEVED PRN FOR TOLERABLE RELIEF OF R.CHEST/NECK PAIN R/T PERMCATH PLACEMENT. ZOFRAN RECIEVED PRN FOR PERSISTENT NAUSEA FROM GASTROPARESIS. BLE'S REMAIN DISCOLORED, EDEMATUS AND HAVE SCATTERED SCABBED VASC SORES THAT ARE BENSON. STAFF PLAN TO APPLY XEROFORM W/KERLEX DX'S WA BUT SHE'S BEEN SLEEPING MOST OF NOCTE. PT REMAINS NSR AT 60'S BPM ON TELEMETRY. NO ACUTE CHANGES, VSS/AFEBRILE. WCTM AND REPORT TO DAY RN.
[2021-05-02 07:10] LABS: BASOPHILS ABSOLUTE AUTO 0.04 K/mm3 (0.00-0.23); BASOPHILS PERCENT AUTO 1 % (0-2); EOSINOPHILS ABSOLUTE AUTO 0.13 K/mm3 (0.00-0.68); EOSINOPHILS PERCENT AUTO 2 % (0-6); Hematocrit 32.6 % (33.0-51.0); IMMATURE GRAN ABSOLUTE AUTO 0.04 K/mm3 (0.00-0.10); IMMATURE GRAN PERCENT AUTO 1 % (0-1); LYMPHOCYTES ABSOLUTE AUTO 1.11 K/mm3 (0.84-5.20); LYMPHOCYTES PERCENT AUTO 17 % (21-46); MONOCYTES ABSOLUTE AUTO 0.85 K/mm3 (0.16-1.47); MONOCYTES PERCENT AUTO 13 % (4-13); Mean Corpuscular HGB 25.8 pg (26.0-34.0); Mean Corpuscular HGB Conc 30.7 g/dL (31.5-36.5); Mean Corpuscular Volume 84 fL (80-100); NEUTROPHILS PERCENT AUTO 66 % (41-73); Platelet Count 159 K/mm3 (150-400); RDW Coefficient Variation 16.1 % (11.7-14.2); RDW Standard Deviation 49.6 fL (35.1-46.3); Red Blood Cell Count 3.87 M/mm3 (3.80-5.20); White Blood Cell Count 6.37 K/mm3 (4.00-11.30)
[2021-05-02 07:15] LABS: Mean Platelet Volume 14.1 fL (9.1-12.4)
[2021-05-02 07:17] LABS: Bun/Creatinine Ratio 24.1 (12.0-20.0); Calcium, Blood 8.5 mg/dL (8.5-10.1); Creatinine, Blood 2.66 mg/dL (0.40-1.00); Potassium, Blood 3.6 mmol/L (3.5-5.5)
[2021-05-02 08:11] LABS: HBSAG SCREEN Negative (Negative); HEP A AB, IGM Negative (Negative); HEP B CORE AB, IGM Negative (Negative); HEP C VIRUS AB 0.1 (0.0-0.9)
--- NOTE | 2021-05-02 18:34 | NUR ---
SHIFT SUMMARY: NO ACUTE EVENTS. NO EVENTS ON TELEMETRY, SR 60'S. R UPPER CHEST PERMACATH NO LONGER BLEEDING. ECHOCARDIOGRAM COMPLETED. NAUSEA MUCH BETTER CONTROLLED TODAY, MEDICATED PER EMAR. LBM ON 04/29, IN NO DISTRESS BUT MAY NEED BOWEL MEDS D/T GASTROPARESIS. HAD HEMODIALYSIS TODAY, TOLERATED WELL.
[2021-05-03 04:48] LABS: Hematocrit 34.5 % (33.0-51.0); Hemoglobin 10.5 g/dL (11.5-16.0)
--- NOTE | 2021-05-03 04:48 | NUR ---
SHIFT SUMMARY: PT IS ALERT AND ORIENTED. PT IS CALM AND COOPERATIVE WITH CARE. PT CALLS APPROPRIATELY. PT INDEPENDENT IN THE ROOM. PT REPORTS NAUSEA ON SEVERAL OCCASIONS, MEDICATING PER EMAR. PT DENIES PAIN, VOMITING, AND SOB. PT SLEPT INTERMITTENTLY THROUGHOUT THE NIGHT. NO ACUTE CHANGES THIS SHIFT. WILL CONTINUE TO MONITOR.
[2021-05-03 05:05] LABS: Albumin, Blood 3.1 g/dL (3.4-5.0); Anion Gap 5 mmol/L (6-16); Blood Urea Nitrogen 47 mg/dL (8-24); Bun/Creatinine Ratio 21.5 (12.0-20.0); CO2, Blood 30 mmol/L (21-32); Calcium, Blood 8.6 mg/dL (8.5-10.1); Chloride, Blood 99 mmol/L (98-108); Creatinine, Blood 2.19 mg/dL (0.40-1.00); Glomerular Filtration Rate 23 (60-); Glucose, Blood 315 mg/dL (70-99); Magnesium, Blood 2.1 mg/dL (1.6-2.4); Phosphorus, Blood 2.7 mg/dL (2.5-4.9); Potassium, Blood 3.9 mmol/L (3.5-5.5); Sodium, Blood 134 mmol/L (136-145)
[2021-05-03 08:28] LABS: HBSAG SCREEN Negative (Negative); HEP B CORE AB, TOT Negative (Negative); HEP C VIRUS AB <0.1 (0.0-0.9)
--- NOTE | 2021-05-03 18:11 | NUR ---
PT RESTING IN BED AFTER DINNER AND PM MEDICATION ADMIN. PT ALERT AND ORIENTED X4, PARANOID OVER CARE, LABILE AND NON-COOPERATIVE WITH INSULIN MANAGMENT, MD AWARE. PT MAKES NO COMPLAINTS AT THIS TIME. NO ACCUTE CHANGES NOTED. DIALYSIS TO TAKE PLACE TOMORROW PER MD RAMIREZ. PT IS IND IN ROOM AND ABLE TO MAKE NEEDS KNOWN. STAFF WILL CONTINUE TO MONITOR.
--- NOTE | 2021-05-04 01:45 | NUR ---
05/03/212125 PT LYING IN BED, REPORTS NAUSEA, GAVE ZOFRAN, WILL EVAL FOR EFFECT. TELE NSR. NO OTHER APPARENT SIGNS OF DISTRESS. CALL LIGHT IS IN REACH.
--- NOTE | 2021-05-04 03:37 | NUR ---
0000 PT LYING IN BED, EYES CLOSED, APPEARS TO BE RESTING. BREATHING IS EVEN, UNLABORED. NO APPARENT SIGNS OF DISTRESS. CALL LIGHT IS IN REACH.
--- NOTE | 2021-05-04 03:38 | NUR ---
PT LYING IN BED, EYES CLOSED, APPEARS TO BE RESTING. BREATHING IS EVEN, UNLABORED. NO APPARENT SIGNS OF DISTRESS. CALL LIGHT IS IN REACH.
--- NOTE | 2021-05-04 03:38 | NUR ---
0200 PT LYING IN BED, EYES CLOSED, APPEARS TO BE RESTING. BREATHING IS EVEN, UNLABORED. NO APPARENT SIGNS OF DISTRESS. CALL LIGHT IS IN REACH.
[2021-05-04 05:02] LABS: Hematocrit 37.3 % (33.0-51.0); Hemoglobin 11.4 g/dL (11.5-16.0)
[2021-05-04 05:35] LABS: Albumin, Blood 3.2 g/dL (3.4-5.0); Anion Gap 6 mmol/L (6-16); Blood Urea Nitrogen 52 mg/dL (8-24); Bun/Creatinine Ratio 23.6 (12.0-20.0); CO2, Blood 29 mmol/L (21-32); Calcium, Blood 8.8 mg/dL (8.5-10.1); Chloride, Blood 99 mmol/L (98-108); Glomerular Filtration Rate 23 (60-); Glucose, Blood 257 mg/dL (70-99); Magnesium, Blood 2.3 mg/dL (1.6-2.4); Phosphorus, Blood 2.7 mg/dL (2.5-4.9); Potassium, Blood 3.9 mmol/L (3.5-5.5); Sodium, Blood 134 mmol/L (136-145)
--- NOTE | 2021-05-04 05:44 | NUR ---
PT IS AAO X 4, ON RA. REPORTED NAUSEA, GOT ZOFRAN AT HS. HD WITH CATH TO R CHEST WALL. TELE NSR.
--- NOTE | 2021-05-04 06:19 | NUR ---
PT LYING IN BED, EYES CLOSED, APPEARS TO BE RESTING. BREATHING IS EVEN, UNLABORED. NO APPARENT SIGNS OF DISTRESS. CALL LIGHT IS IN REACH. NO OTHER CHANGES THIS SHIFT.
--- NOTE | 2021-05-04 09:56 | NUR ---
COLING 338 THIS MORNING; CBG DID NOT WENT THROUGH EMAR; CALLED LAB
--- NOTE | 2021-05-04 09:57 | NUR ---
CBG AT 0811 IS 338. NURSE TOMASZ NOTIFIED.
--- NOTE | 2021-05-04 12:00 | NUR ---
CBG THIS LUNCH 289; COVERAGE GIVEN WITH SLIDING SCALE. AND PT REFUSED FOR CARB COVERAGE
--- NOTE | 2021-05-04 17:26 | NUR ---
SHIFT SUMMARY PT ALERT ORIENTED; INDEPENDENT IN THE ROOM; VERY IRRITABLE AT TIMES. DENIES ANY PAIN OR SOB. VSS. PT STILL AWAITS FOR CHAIR IN [facility] FOR DIALYSIS. BED IS IN THE LOWEST POSITION AND CALL LIGHT WITHIN REACH
--- NOTE | 2021-05-04 18:00 | NUR ---
CBG OF 241
--- NOTE | 2021-05-04 21:47 | NUR ---
2123 PT SITTING IN CHAIR IN ROOM. DENIES ANY DISCOMFORT AT THIS TIME. PT HAS HD CATH TO R CHEST. SOME SCABS ON LE'S. CALL LIGHT IS IN REACH. DENIES NEED FOR ANYTHING AT THIS TIME.
--- NOTE | 2021-05-05 01:32 | NUR ---
05/04/21 2330 PT LYING IN BED, EYES CLOSED, APPEARS TO BE RESTING. BREATHING IS EVEN, UNLABORED. NO APPARENT SIGNS OF DISTRESS. CALL LIGHT IS IN REACH.
--- NOTE | 2021-05-05 01:33 | NUR ---
PT LYING IN BED, EYES CLOSED, APPEARS TO BE RESTING. BREATHING IS EVEN, UNLABORED. NO APPARENT SIGNS OF DISTRESS. CALL LIGHT IS IN REACH.
--- NOTE | 2021-05-05 04:34 | NUR ---
PT LYING IN BED, EYES CLOSED, APPEARS TO BE RESTING. BREATHING IS EVEN, UNLABORED. NO APPARENT SIGNS OF DISTRESS. CALL LIGHT IS IN REACH.
--- NOTE | 2021-05-05 04:34 | NUR ---
PT IS AAO X 4, ON RA, DENIES ANY DISCOMFORT FOR THIS SHIFT. SOME SCABS ON HER LE'S.
--- NOTE | 2021-05-05 04:39 | NUR ---
05/04/212056 BS WAS 2056
[2021-05-05 04:58] LABS: Hematocrit 34.6 % (33.0-51.0); Hemoglobin 10.7 g/dL (11.5-16.0)
[2021-05-05 05:26] LABS: Albumin, Blood 3.2 g/dL (3.4-5.0); Anion Gap 6 mmol/L (6-16); Blood Urea Nitrogen 53 mg/dL (8-24); Bun/Creatinine Ratio 28.5 (12.0-20.0); CO2, Blood 30 mmol/L (21-32); Calcium, Blood 8.8 mg/dL (8.5-10.1); Chloride, Blood 100 mmol/L (98-108); Creatinine, Blood 1.86 mg/dL (0.40-1.00); Glomerular Filtration Rate 28 (60-); Glucose, Blood 224 mg/dL (70-99); Magnesium, Blood 2.3 mg/dL (1.6-2.4); Phosphorus, Blood 2.9 mg/dL (2.5-4.9); Potassium, Blood 4.1 mmol/L (3.5-5.5); Sodium, Blood 136 mmol/L (136-145)
--- NOTE | 2021-05-05 06:16 | NUR ---
PT LYING IN BED, AWAKE, NO APPARENT SIGNS OF DISTRESS. CALL LIGHT IS IN REACH. NO OTHER CHANGES THIS SHIFT.
--- NOTE | 2021-05-05 08:06 | NUR ---
BLOOD SUGAR 309
--- NOTE | 2021-05-05 11:31 | NUR ---
RESTING QUIETLY IN ROOM. DENIES PAIN OR COMPLAINTS. AWAITING RESULTS OF BLOOD CX BEFORE ANY DISCHARGE PLAN.
--- NOTE | 2021-05-05 16:17 | NUR ---
05/05/21 1617 Yvonne Rocha VERIFICATIONS: EDIT CHART.
--- NOTE | 2021-05-05 17:07 | NUR ---
HAS STAYED IN ROOM T/O DAY. NO PAIN OR COMPLAINTS. DULCOLAX SUPPOSITORY GIVEN PER PT REQUEST. UP AD EMELIA. PLEASANT/COOP. NO ACUTE CHANGES.
[2021-05-06 05:10] LABS: Hematocrit 37.2 % (33.0-51.0); Hemoglobin 11.4 g/dL (11.5-16.0)
[2021-05-06 05:30] LABS: Albumin, Blood 3.6 g/dL (3.4-5.0); Anion Gap 5 mmol/L (6-16); Blood Urea Nitrogen 49 mg/dL (8-24); Bun/Creatinine Ratio 29.9 (12.0-20.0); CO2, Blood 30 mmol/L (21-32); Chloride, Blood 101 mmol/L (98-108); Creatinine, Blood 1.64 mg/dL (0.40-1.00); Glomerular Filtration Rate 33 (60-); Glucose, Blood 215 mg/dL (70-99); Magnesium, Blood 2.3 mg/dL (1.6-2.4); Phosphorus, Blood 3.9 mg/dL (2.5-4.9); Potassium, Blood 4.2 mmol/L (3.5-5.5); Sodium, Blood 136 mmol/L (136-145)
--- NOTE | 2021-05-06 05:54 | NUR ---
SUMMARY: A/OX4, INDEPENDENT AND CALLS APPROPRIATELY TO SPECIFY NEEDS. HD CATH PRESENT TO R.CHEST AND PT AWAITING BED AT [facility] FOR D/C. CELLULITITS IMPROVING TO BLE'S, SCABS ARE HEALING. SHE DENIED PAIN, NAUSEA, SOB AND ALL OTHER COMPLAINTS THIS SHIFT. VSS/AFEBRILE, NO ACUTE CHANGE. WCTM AND REPORT TO DAY RN.
[2021-05-06] MEDS ORDERED: ATOR80 PO (12:19)
[2021-05-06] MEDS ORDERED: CEFTRIAXONE2 G1 IV (12:19)
[2021-05-06] MEDS ORDERED: MIRALAX17 GM PO (12:19)
--- NOTE | 2021-05-06 16:56 | NUR ---
PT AOX4 AND COOPERATIVE OF CARE. PT HAD ALL PAPERWORK REVIEWED AND EDUCATIONAL MATERIAL SENT. PT SET UP TO HAVE ANTIBOTICS THROUGH [facility] AND POWER WAS TO CANTACT PT AT HOME FOR DIALYSIS SCHEDULE PER CASEMANAGER. POWERGLIDE WAS PLACED AND PT TOLERATED WELL. NO DISTRESS NOTED. PT WAS REFUSING TO EAT TODAY STATING SHE DID NOT LIKE THE FOOD AT THE HOSPITAL. INSULIN WAS HELD PER PT REQUEST. PT ESCORTED OUT WITH PERSONAL BELONINGS VIA WHEELCHAIR AND ESCORTED OUT TO N ENTRANCE.
== END 2021-05-06 17:37 | disposition home or self-care (01) | DRG 872 ==
LOC: ER 14:26 → MEDS 16:40
PROVIDERS: Emergency Medicine; Family Medicine; Internal Medicine; Internal Medicine Nephrology; Physician Assistant; Surgery; ADMIT Hospitalist
PROC: 0JH63XZ Insertion of Tunneled Vascular Access Device into Chest Subcutaneous Tissue and Fascia, Percutaneous Approach (ICD-10-PCS; 2021-05-01)
PROC: 02HV33Z Insertion of Infusion Device into Superior Vena Cava, Percutaneous Approach (ICD-10-PCS; 2021-05-01)
PROC: 5A1D70Z Performance of Urinary Filtration, Intermittent, Less than 6 Hours Per Day (ICD-10-PCS; principal; 2021-05-01 13:00)
DX: A40.8 Other streptococcal sepsis (principal); N25.81 Secondary hyperparathyroidism of renal origin; N17.9 Acute kidney failure, unspecified; I50.22 Chronic systolic (congestive) heart failure; L03.116 Cellulitis of left lower limb; E87.1 Hypo-osmolality and hyponatremia; N18.4 Chronic kidney disease, stage 4 (severe); I13.0 Hypertensive heart and chronic kidney disease with heart failure and stage 1 through stage 4 chronic kidney disease, or unspecified chronic kidney disease; Z20.822 Contact with and (suspected) exposure to COVID-19; E10.22 Type 1 diabetes mellitus with diabetic chronic kidney disease; D63.1 Anemia in chronic kidney disease; R77.8 Other specified abnormalities of plasma proteins; J44.9 Chronic obstructive pulmonary disease, unspecified; I25.10 Atherosclerotic heart disease of native coronary artery without angina pectoris; E10.42 Type 1 diabetes mellitus with diabetic polyneuropathy; M54.9 Dorsalgia, unspecified; K21.9 Gastro-esophageal reflux disease without esophagitis; F41.1 Generalized anxiety disorder; G89.29 Other chronic pain; Z79.82 Long term (current) use of aspirin; I25.2 Old myocardial infarction; Z79.4 Long term (current) use of insulin; Z79.899 Other long term (current) drug therapy; Z88.8 Allergy status to other drugs, medicaments and biological substances; Z88.5 Allergy status to narcotic agent; Z91.018 Allergy to other foods; Z91.012 Allergy to eggs; Z98.890 Other specified postprocedural states; Z95.1 Presence of aortocoronary bypass graft; Z87.891 Personal history of nicotine dependence
CPT/HCPCS: 36415; 71045; 73700; 76770; 77001; 80048; 80053; 80069; 80074; 80202; 82010; 82803; 82947; 83605; 83690; 83735; 83880; 84132; 84484; 85014; 85018; 85025; 85610; 85730; 86317; 86704; 86708; 86803; 86900; 86901; 87040; 87147; 87340; 93005; 93010; 93308; 93321; 93971; 94760; 96361; 96365; 96375; 99285-25; A9270; C1750; J0690; J0696; J0881; J1644; J1650; J1815; J1885; J2250; J2405; J2704; J3010; J3370; J7030; J7050; J7120; U0004

== ENCOUNTER 2021-05-07 02:39 | Day surgery (SDC) | payer MEDICARE, OTHER ==
[~2021-05-07 02:39] MED LIST changes: +ATOR80 PO; +BUMETANIDE2 M3 PO; +CEFTRIAXONE2 G1 IV; +KLOR-CON 1010 ME3 PO; +MIRALAX17 GM PO; +ONDA4ODT PO
== END 2021-05-07 10:00 | disposition home or self-care (01) ==
LOC: ATC 02:39
DX: A40.8 Other streptococcal sepsis (principal); I25.10 Atherosclerotic heart disease of native coronary artery without angina pectoris; I13.0 Hypertensive heart and chronic kidney disease with heart failure and stage 1 through stage 4 chronic kidney disease, or unspecified chronic kidney disease; I50.22 Chronic systolic (congestive) heart failure; N18.30 Chronic kidney disease, stage 3 unspecified; E10.22 Type 1 diabetes mellitus with diabetic chronic kidney disease; J44.9 Chronic obstructive pulmonary disease, unspecified; Z88.5 Allergy status to narcotic agent; Z88.8 Allergy status to other drugs, medicaments and biological substances; Z91.012 Allergy to eggs; Z91.018 Allergy to other foods; Z79.899 Other long term (current) drug therapy; Z79.4 Long term (current) use of insulin; Z20.822 Contact with and (suspected) exposure to COVID-19
CPT/HCPCS: 96365; J0696

== ENCOUNTER 2021-05-08 01:02 | Day surgery (SDC) | payer MEDICARE, OTHER | END 2021-05-08 11:05 | disposition home or self-care (01) | LOC: ATC 01:02 | DX: A40.8 Other streptococcal sepsis (principal); I25.10 Atherosclerotic heart disease of native coronary artery without angina pectoris; E10.22 Type 1 diabetes mellitus with diabetic chronic kidney disease; I13.0 Hypertensive heart and chronic kidney disease with heart failure and stage 1 through stage 4 chronic kidney disease, or unspecified chronic kidney disease; N18.30 Chronic kidney disease, stage 3 unspecified; I50.22 Chronic systolic (congestive) heart failure; J44.9 Chronic obstructive pulmonary disease, unspecified; E78.5 Hyperlipidemia, unspecified; Z95.1 Presence of aortocoronary bypass graft; Z87.891 Personal history of nicotine dependence; Z88.8 Allergy status to other drugs, medicaments and biological substances; Z91.018 Allergy to other foods; Z88.5 Allergy status to narcotic agent; Z91.012 Allergy to eggs; Z79.4 Long term (current) use of insulin; Z79.82 Long term (current) use of aspirin | CPT/HCPCS: 96365; J0696 ==

== ENCOUNTER 2021-06-18 09:59 | Emergency (ER) | payer MEDICARE, OTHER ==
[~2021-06-18] VITALS: Ht 165.1 cm; Wt 54.4 kg
[2021-06-18 10:42] LABS: BASOPHILS ABSOLUTE AUTO 0.11 K/mm3 (0.00-0.23); BASOPHILS PERCENT AUTO 2 % (0-2); EOSINOPHILS ABSOLUTE AUTO 0.17 K/mm3 (0.00-0.68); EOSINOPHILS PERCENT AUTO 3 % (0-6); Hematocrit 39.4 % (33.0-51.0); Hemoglobin 12.2 g/dL (11.5-16.0); IMMATURE GRAN ABSOLUTE AUTO 0.01 K/mm3 (0.00-0.10); IMMATURE GRAN PERCENT AUTO 0 % (0-1); LYMPHOCYTES ABSOLUTE AUTO 1.05 K/mm3 (0.84-5.20); LYMPHOCYTES PERCENT AUTO 19 % (21-46); MONOCYTES ABSOLUTE AUTO 0.49 K/mm3 (0.16-1.47); MONOCYTES PERCENT AUTO 9 % (4-13); Mean Corpuscular HGB 27.4 pg (26.0-34.0); Mean Corpuscular Volume 89 fL (80-100); Mean Platelet Volume 11.6 fL (9.1-12.4); NEUTROPHILS ABSOLUTE AUTO 3.69 K/mm3 (1.96-9.15); NEUTROPHILS PERCENT AUTO 67 % (41-73); Platelet Count 187 K/mm3 (150-400); RDW Standard Deviation 55.1 fL (35.1-46.3); Red Blood Cell Count 4.45 M/mm3 (3.80-5.20); White Blood Cell Count 5.52 K/mm3 (4.00-11.30)
[2021-06-18 11:02] LABS: Albumin, Blood 4.1 g/dL (3.4-5.0); Bilirubin, Total 0.5 mg/dL (0.1-1.0); Bun/Creatinine Ratio 11.7 (12.0-20.0); Calcium, Blood 9.3 mg/dL (8.5-10.1); Creatinine, Blood 4.54 mg/dL (0.40-1.00); Globulin, Blood 4.1 g/dL (2.2-4.0); Potassium, Blood 4.1 mmol/L (3.5-5.5); Total Protein, Blood 8.2 g/dL (6.4-8.2); Troponin I 0.114 ng/mL (0.000-0.040)
== END 2021-06-18 12:12 | disposition home or self-care (01) ==
LOC: ER 09:59
PROVIDERS: Emergency Medicine
DX: R00.2 Palpitations (principal); E10.42 Type 1 diabetes mellitus with diabetic polyneuropathy; E10.22 Type 1 diabetes mellitus with diabetic chronic kidney disease; N18.5 Chronic kidney disease, stage 5; E10.43 Type 1 diabetes mellitus with diabetic autonomic (poly)neuropathy; K31.84 Gastroparesis; I50.9 Heart failure, unspecified; Z88.6 Allergy status to analgesic agent; Z91.012 Allergy to eggs; Z88.5 Allergy status to narcotic agent; Z88.8 Allergy status to other drugs, medicaments and biological substances; Z91.018 Allergy to other foods; Z79.899 Other long term (current) drug therapy; Z79.82 Long term (current) use of aspirin; Z95.1 Presence of aortocoronary bypass graft; Z99.2 Dependence on renal dialysis
CPT/HCPCS: 36415; 71045; 80053; 83735; 84484; 85025; 93005; 93010; 99285-25

== ENCOUNTER 2021-06-22 09:51 | Inpatient (IN) | payer MEDICARE, OTHER ==
[~2021-06-22] VITALS: Ht 165.1 cm; Wt 58.1 kg
[2021-06-22 10:27] LABS: BASOPHILS ABSOLUTE AUTO 0.07 K/mm3 (0.00-0.23); BASOPHILS PERCENT AUTO 1 % (0-2); EOSINOPHILS ABSOLUTE AUTO 0.26 K/mm3 (0.00-0.68); EOSINOPHILS PERCENT AUTO 4 % (0-6); Hematocrit 33.9 % (33.0-51.0); Hemoglobin 10.8 g/dL (11.5-16.0); IMMATURE GRAN ABSOLUTE AUTO 0.03 K/mm3 (0.00-0.10); IMMATURE GRAN PERCENT AUTO 0 % (0-1); LYMPHOCYTES ABSOLUTE AUTO 1.34 K/mm3 (0.84-5.20); LYMPHOCYTES PERCENT AUTO 18 % (21-46); MONOCYTES ABSOLUTE AUTO 0.65 K/mm3 (0.16-1.47); MONOCYTES PERCENT AUTO 9 % (4-13); Mean Corpuscular HGB 27.6 pg (26.0-34.0); Mean Corpuscular HGB Conc 31.9 g/dL (31.5-36.5); Mean Corpuscular Volume 87 fL (80-100); Mean Platelet Volume 11.7 fL (9.1-12.4); NEUTROPHILS ABSOLUTE AUTO 4.93 K/mm3 (1.96-9.15); NEUTROPHILS PERCENT AUTO 68 % (41-73); Platelet Count 174 K/mm3 (150-400); RDW Coefficient Variation 16.2 % (11.7-14.2); RDW Standard Deviation 51.6 fL (35.1-46.3); Red Blood Cell Count 3.91 M/mm3 (3.80-5.20); White Blood Cell Count 7.28 K/mm3 (4.00-11.30)
[2021-06-22 11:02] LABS: Albumin, Blood 4.1 g/dL (3.4-5.0); Albumin/Globulin Ratio 1.1 (0.8-1.8); Bilirubin, Total 0.4 mg/dL (0.1-1.0); Calcium, Blood 9.2 mg/dL (8.5-10.1); Creatinine, Blood 5.24 mg/dL (0.40-1.00); Globulin, Blood 3.8 g/dL (2.2-4.0); Potassium, Blood 3.9 mmol/L (3.5-5.5); Total Protein, Blood 7.9 g/dL (6.4-8.2); Troponin I 0.49 ng/mL (0.000-0.040)
[2021-06-22 14:10] LABS: International Normalized Ratio 0.99; Prothrombin Time Results 10.7 Sec (9.7-11.5)
[2021-06-22 15:00] LABS: Albumin, Blood 3.8 g/dL (3.4-5.0); Anion Gap 6 mmol/L (6-16); Blood Urea Nitrogen 64 mg/dL (8-24); Bun/Creatinine Ratio 12.5 (12.0-20.0); CO2, Blood 33 mmol/L (21-32); Calcium, Blood 9.2 mg/dL (8.5-10.1); Chloride, Blood 94 mmol/L (98-108); Creatinine, Blood 5.14 mg/dL (0.40-1.00); Glomerular Filtration Rate 9 (60-); Glucose, Blood 319 mg/dL (70-99); Phosphorus, Blood 5.1 mg/dL (2.5-4.9); Potassium, Blood 4.2 mmol/L (3.5-5.5); Sodium, Blood 133 mmol/L (136-145)
[2021-06-22 15:05] LABS: Albumin, Blood 3.8 g/dL (3.4-5.0); Albumin/Globulin Ratio 1.1 (0.8-1.8); Bilirubin, Total 0.3 mg/dL (0.1-1.0); Bun/Creatinine Ratio 12.5 (12.0-20.0); Calcium, Blood 9.6 mg/dL (8.5-10.1); Creatinine, Blood 5.14 mg/dL (0.40-1.00); Globulin, Blood 3.4 g/dL (2.2-4.0); Potassium, Blood 4.2 mmol/L (3.5-5.5); Total Protein, Blood 7.2 g/dL (6.4-8.2)
[2021-06-22 15:38] LABS: SARS-Cov-2 (COVID-19) PCR, MMC NEGATIVE (NEGATIVE)
--- NOTE | 2021-06-22 16:23 | NUR ---
Echocardiogram completed.
--- NOTE | 2021-06-22 19:28 | NUR ---
NEW ADMIT: PT IS NEW ADMIT, TO ROOM APPROX 1800 F/ER. PT ARRIVES A&Ox4, RESP EVEN AND UNLABORED ON RA, LS CLEAR, SR ON MONITOR, HEPARIN INFUSING AT 13 U/KG/HR. UPON ARRIVAL, PT AMBULATES INDEPENDENTLY TO RESTROOM. ECHO COMPLETE W/EF OF 50-55%. CARDIOLOGY CONSULT COMPLETE, NO PLANS FOR INTERVENTION AT THIS TIME, DINNER TRAY HAS BEEN ORDERED. SELVIN Rogers RN TO CALL NEPHROLOGY CONSULT IN. PALLIATIVE CARE HAS BEEN NOTIFIED VIA [employer] OF CONSULT. AT THIS TIME, PT IS RESTING QUIETLY IN ROOM. CALL LIGHT WITHIN REACH. REPORT GIVEN TO NOC SHIFT RN.
--- NOTE | 2021-06-22 20:10 | NUR ---
DR THAPA WAS NOTIFED OF THE PATIENT'S TROPONIN LEVELS OF 19. WAS INFORMED THE PATIENT'S VITALS WERE STABEL AND PATIENT WAS ASYMPTOMATIC. NO NEW ORDERS WILL CONTINUE TO MONITOR.
[2021-06-23 01:34] LABS: Hemoglobin 11.2 g/dL (11.5-16.0)
[2021-06-23 01:36] LABS: Albumin, Blood 3.5 g/dL (3.4-5.0); Anion Gap 7 mmol/L (6-16); Blood Urea Nitrogen 66 mg/dL (8-24); Bun/Creatinine Ratio 13.4 (12.0-20.0); CO2, Blood 32 mmol/L (21-32); Chloride, Blood 96 mmol/L (98-108); Creatinine, Blood 4.91 mg/dL (0.40-1.00); Glomerular Filtration Rate 9 (60-); Glucose, Blood 196 mg/dL (70-99); Magnesium, Blood 2.7 mg/dL (1.6-2.4); Phosphorus, Blood 5.7 mg/dL (2.5-4.9); Potassium, Blood 3.8 mmol/L (3.5-5.5); Sodium, Blood 135 mmol/L (136-145)
--- NOTE | 2021-06-23 06:27 | NUR ---
SHIFT SUMMARY PATIENT IS RESTING IN BED COMFORTABLY. VITALS HAVE BEEN STABLE. PATIENT DID NOT HAVE COMPLAINTS OF CHEST PAIN. TROPONIN CAME BACK CRITICALLY ELEVATED MD WAS NOTIFED. PATIENT IS CURRENTLY ON HEPARIN DRIP RUNNING AT 14 UNITS/KG/HR AT 16 ML/HR. CALL LIGHT IS IN REACH. BED IS IN LOW POSITION. WILL CONTINUE TO MONITOR. PATIENT USES THE BEDSIDE COMMODE TO VOID AND IS ABLE TO GET UP ON HER OWN.
--- NOTE | 2021-06-23 06:53 | NUR ---
PATIENT HAS A RIGHT UPPER CHEST HEMODIALYSIS PORT DOUBLE LUMEN.
--- NOTE | 2021-06-23 10:41 | NUR ---
PT TRANSFERRED TO ROOM 216 ABOUT 1000. ASSUMED CARE AT THAT TIME. PT IS A/O X4, IND TO BSC/IN ROOM. DENIES CHEST PAIN/PRESSURE AT THIS TIME. HEPARIN DRIP INFUSING PER ORDER. PLAN IS TO HAVE DIALYSIS LATER TODAY IF POSSIBLE.
--- NOTE | 2021-06-23 18:10 | NUR ---
SHIFT SUMMARY PT IS A/O X4, IND IN ROOM. USING BSC WHEN WEAK BUT CAN AMBULATE TO BATHROOM. HEPARIN DRIP ADJUSTED TODAY PER PHARMACY. PT HAS BEEN TOLERATING PO INTAKE. HUMALOG MANGED PER CBG AND CARB INTAKE. PT CURRENTLY RECEIVING DIALYSIS AT BEDSIDE. PT HAS DENIED CHEST PAIN TODAY. TELE IN PLACE. PT RESTING IN BED AT THIS TIME, CALL LIGHT IN REACH.
[2021-06-24 04:35] LABS: BASOPHILS ABSOLUTE AUTO 0.07 K/mm3 (0.00-0.23); BASOPHILS PERCENT AUTO 1 % (0-2); EOSINOPHILS ABSOLUTE AUTO 0.28 K/mm3 (0.00-0.68); EOSINOPHILS PERCENT AUTO 5 % (0-6); Hematocrit 35.9 % (33.0-51.0); Hemoglobin 11.6 g/dL (11.5-16.0); IMMATURE GRAN ABSOLUTE AUTO 0.02 K/mm3 (0.00-0.10); IMMATURE GRAN PERCENT AUTO 0 % (0-1); LYMPHOCYTES PERCENT AUTO 34 % (21-46); MONOCYTES ABSOLUTE AUTO 0.59 K/mm3 (0.16-1.47); MONOCYTES PERCENT AUTO 11 % (4-13); Mean Corpuscular HGB Conc 32.3 g/dL (31.5-36.5); Mean Corpuscular Volume 87 fL (80-100); Mean Platelet Volume 11.8 fL (9.1-12.4); NEUTROPHILS ABSOLUTE AUTO 2.66 K/mm3 (1.96-9.15); NEUTROPHILS PERCENT AUTO 48 % (41-73); Platelet Count 193 K/mm3 (150-400); RDW Coefficient Variation 16.5 % (11.7-14.2); RDW Standard Deviation 53.2 fL (35.1-46.3); Red Blood Cell Count 4.14 M/mm3 (3.80-5.20); White Blood Cell Count 5.52 K/mm3 (4.00-11.30)
--- NOTE | 2021-06-24 04:47 | NUR ---
A/OX3. ABLE TO MAKE HER NEEDS KNOWN. TELE: SR. DENIED ANY CHEST PAIN/PRESSURE. RT CHEST PORT. HAS DIALYSIS 3X/WK: M/W/F. GENERALIZED WEAKNESS. BSC. BT'S POS. [place] X1. HEP DRIP MANAGED PER PHARMACY. PTT: >139, HEP GTT HELD X1 HOUR THEN RATE DECREASED TO 16ML/HR.
[2021-06-24 04:51] LABS: Albumin, Blood 3.6 g/dL (3.4-5.0); Anion Gap 4 mmol/L (6-16); Blood Urea Nitrogen 39 mg/dL (8-24); Bun/Creatinine Ratio 9.7 (12.0-20.0); CO2, Blood 33 mmol/L (21-32); Calcium, Blood 8.9 mg/dL (8.5-10.1); Chloride, Blood 102 mmol/L (98-108); Creatinine, Blood 4.01 mg/dL (0.40-1.00); Glomerular Filtration Rate 12 (60-); Glucose, Blood 193 mg/dL (70-99); Magnesium, Blood 2.5 mg/dL (1.6-2.4); Phosphorus, Blood 4.6 mg/dL (2.5-4.9); Potassium, Blood 4.1 mmol/L (3.5-5.5); Sodium, Blood 139 mmol/L (136-145)
[2021-06-24] MEDS ORDERED: METO25ER PO (11:22)
[2021-06-24] MEDS ORDERED: Isosorbide Mono30 MG PO (11:23)
[2021-06-24] MEDS ORDERED: Amlodipine Bes2.5 MG PO (11:24)
[2021-06-24] MEDS ORDERED: CLOP75 PO (11:25)
[2021-06-24] MEDS ORDERED: PANT40 PO (11:26)
--- NOTE | 2021-06-24 12:14 | NUR ---
DISCHARGE PT A&O X4. PT PROVIDED W/ VERBAL & WRITTEN INSTRUCTION, VERBALIZED UNDERSTANDING. VSS. TELE AND IV DISCONTIUED. PT DENIED SOB, CHEST PAIN/TIGHTNESS, AND DIZZINESS. PT ESCORTED OUT VIA WC TO [facility], SON PROVIDED TRANSPORT.
== END 2021-06-24 11:59 | disposition home or self-care (01) | DRG 280 ==
LOC: ER 09:51 → ERHOLD 14:39 → SURS 14:39
PROVIDERS: Internal Medicine Nephrology; Pharmacist; Student in an Organized Health Care Education/Training Program; ADMIT Hospitalist
PROC: 5A1D70Z Performance of Urinary Filtration, Intermittent, Less than 6 Hours Per Day (ICD-10-PCS; principal; 2021-06-23)
DX: I21.4 Non-ST elevation (NSTEMI) myocardial infarction (principal); N18.6 End stage renal disease; I13.2 Hypertensive heart and chronic kidney disease with heart failure and with stage 5 chronic kidney disease, or end stage renal disease; I50.22 Chronic systolic (congestive) heart failure; E87.1 Hypo-osmolality and hyponatremia; E10.22 Type 1 diabetes mellitus with diabetic chronic kidney disease; G89.29 Other chronic pain; M54.9 Dorsalgia, unspecified; E10.42 Type 1 diabetes mellitus with diabetic polyneuropathy; Z20.822 Contact with and (suspected) exposure to COVID-19; K31.84 Gastroparesis; I25.10 Atherosclerotic heart disease of native coronary artery without angina pectoris; E10.65 Type 1 diabetes mellitus with hyperglycemia; K21.9 Gastro-esophageal reflux disease without esophagitis; D63.1 Anemia in chronic kidney disease; E78.5 Hyperlipidemia, unspecified; J44.9 Chronic obstructive pulmonary disease, unspecified; E10.43 Type 1 diabetes mellitus with diabetic autonomic (poly)neuropathy; Z91.012 Allergy to eggs; Z88.5 Allergy status to narcotic agent; Z88.8 Allergy status to other drugs, medicaments and biological substances; Z91.018 Allergy to other foods; Z99.2 Dependence on renal dialysis; Z95.0 Presence of cardiac pacemaker; Z95.1 Presence of aortocoronary bypass graft; Z98.890 Other specified postprocedural states; Z79.52 Long term (current) use of systemic steroids; Z79.82 Long term (current) use of aspirin; Z79.4 Long term (current) use of insulin
CPT/HCPCS: 36415; 71046; 80053; 80069; 82947; 83036; 83690; 83735; 84443; 84484; 85014; 85018; 85025; 85610; 85730; 93005; 93010; 93306; 96365; 96366; 96367; 96375; 99285-25; A9270; J1644; J2405; J3475; U0004

== ENCOUNTER 2021-06-30 09:53 | Emergency (ER) | payer MEDICARE, OTHER ==
[~2021-06-30] VITALS: Ht 165.1 cm; Wt 54.4 kg
[~2021-06-30 09:53] MED LIST changes: +Amlodipine Bes2.5 MG PO; +CLOP75 PO; +Isosorbide Mono30 MG PO; +METO25ER PO; +PANT40 PO
[2021-06-30 10:23] LABS: BASOPHILS ABSOLUTE AUTO 0.02 K/mm3 (0.00-0.23); BASOPHILS PERCENT AUTO 0 % (0-2); EOSINOPHILS PERCENT AUTO 2 % (0-6); Hemoglobin 11.3 g/dL (11.5-16.0); IMMATURE GRAN ABSOLUTE AUTO 0.05 K/mm3 (0.00-0.10); IMMATURE GRAN PERCENT AUTO 0 % (0-1); LYMPHOCYTES ABSOLUTE AUTO 0.78 K/mm3 (0.84-5.20); LYMPHOCYTES PERCENT AUTO 7 % (21-46); MONOCYTES ABSOLUTE AUTO 0.91 K/mm3 (0.16-1.47); MONOCYTES PERCENT AUTO 8 % (4-13); Mean Corpuscular HGB 27.6 pg (26.0-34.0); Mean Corpuscular HGB Conc 31.4 g/dL (31.5-36.5); Mean Corpuscular Volume 88 fL (80-100); Mean Platelet Volume 11.7 fL (9.1-12.4); NEUTROPHILS ABSOLUTE AUTO 9.66 K/mm3 (1.96-9.15); NEUTROPHILS PERCENT AUTO 83 % (41-73); Platelet Count 230 K/mm3 (150-400); RDW Coefficient Variation 15.9 % (11.7-14.2); RDW Standard Deviation 51.1 fL (35.1-46.3); Red Blood Cell Count 4.09 M/mm3 (3.80-5.20); White Blood Cell Count 11.62 K/mm3 (4.00-11.30)
[2021-06-30 11:12] LABS: Albumin, Blood 4.1 g/dL (3.4-5.0); Albumin/Globulin Ratio 1.1 (0.8-1.8); Bilirubin, Total 0.3 mg/dL (0.1-1.0); Bun/Creatinine Ratio 18.2 (12.0-20.0); Calcium, Blood 8.3 mg/dL (8.5-10.1); Creatinine, Blood 5.1 mg/dL (0.40-1.00); Globulin, Blood 3.8 g/dL (2.2-4.0); Magnesium, Blood 2.4 mg/dL (1.6-2.4); Phosphorus, Blood 6.3 mg/dL (2.5-4.9); Potassium, Blood 4.3 mmol/L (3.5-5.5); Total Protein, Blood 7.9 g/dL (6.4-8.2)
[2021-06-30 13:01] LABS: SARS-Cov-2 (COVID-19) PCR, MMC NEGATIVE (NEGATIVE)
== END 2021-06-30 13:53 | disposition home or self-care (01) ==
LOC: ER 09:53
PROVIDERS: Physician Assistant
DX: T82.42XA Displacement of vascular dialysis catheter, initial encounter (principal); E10.40 Type 1 diabetes mellitus with diabetic neuropathy, unspecified; E10.22 Type 1 diabetes mellitus with diabetic chronic kidney disease; N18.6 End stage renal disease; I50.9 Heart failure, unspecified; E10.43 Type 1 diabetes mellitus with diabetic autonomic (poly)neuropathy; K31.84 Gastroparesis; Z20.822 Contact with and (suspected) exposure to COVID-19; Z88.5 Allergy status to narcotic agent; Z91.012 Allergy to eggs; Z88.8 Allergy status to other drugs, medicaments and biological substances; Z79.899 Other long term (current) drug therapy; Z79.82 Long term (current) use of aspirin; Z99.2 Dependence on renal dialysis
CPT/HCPCS: 36415; 80053; 83735; 84100; 85025; 93005; 93010; 99283-25; A9270; J7030; U0004

== ENCOUNTER → 2022-02-19 | Outpatient (CLI) | payer MEDICARE, OTHER ==
[2022-02-19 14:10] LABS: Candida species (DNA Probe) Negative (NEGATIVE); G. vaginalis (DNA Probe) Positive (NEGATIVE); T. vaginalis (DNA Probe) Negative (NEGATIVE)
== END | disposition home or self-care (01) ==
LOC: LAB 10:35 → LAB SHORT 10:35
PROVIDERS: Nurse Practitioner Family
DX: L29.3 Anogenital pruritus, unspecified (principal); R82.998 Other abnormal findings in urine
CPT/HCPCS: 87086; 87480; 87510; 87660

== ENCOUNTER 2022-04-11 14:01 | Emergency (ER) | payer MEDICARE, OTHER ==
[~2022-04-11] VITALS: Ht 162.6 cm; Wt 59.0 kg
[2022-04-11 14:50] LABS: BASOPHILS ABSOLUTE AUTO 0.03 K/mm3 (0.00-0.23); BASOPHILS PERCENT AUTO 1 % (0-2); EOSINOPHILS ABSOLUTE AUTO 0.04 K/mm3 (0.00-0.68); EOSINOPHILS PERCENT AUTO 1 % (0-6); Hematocrit 32.1 % (33.0-51.0); Hemoglobin 10.4 g/dL (11.5-16.0); IMMATURE GRAN ABSOLUTE AUTO 0.03 K/mm3 (0.00-0.10); IMMATURE GRAN PERCENT AUTO 1 % (0-1); LYMPHOCYTES PERCENT AUTO 13 % (21-46); MONOCYTES ABSOLUTE AUTO 0.56 K/mm3 (0.16-1.47); MONOCYTES PERCENT AUTO 9 % (4-13); Mean Corpuscular HGB 30.2 pg (26.0-34.0); Mean Corpuscular HGB Conc 32.4 g/dL (31.5-36.5); Mean Corpuscular Volume 93 fL (80-100); NEUTROPHILS ABSOLUTE AUTO 4.59 K/mm3 (1.96-9.15); NEUTROPHILS PERCENT AUTO 76 % (41-73); Platelet Count 206 K/mm3 (150-400); RDW Coefficient Variation 13.7 % (11.7-14.2); RDW Standard Deviation 47.1 fL (35.1-46.3); Red Blood Cell Count 3.44 M/mm3 (3.80-5.20); White Blood Cell Count 6.05 K/mm3 (4.00-11.30)
[2022-04-11 15:11] LABS: Albumin, Blood 3.4 g/dL (3.4-5.0); Albumin/Globulin Ratio 0.9 (0.8-1.8); Bilirubin, Total 1.1 mg/dL (0.1-1.0); Bun/Creatinine Ratio 9.6 (12.0-20.0); Calcium, Blood 8.8 mg/dL (8.5-10.1); Creatinine, Blood 2.6 mg/dL (0.40-1.00); Globulin, Blood 3.9 g/dL (2.2-4.0); Potassium, Blood 3.8 mmol/L (3.5-5.5); Total Protein, Blood 7.3 g/dL (6.4-8.2)
[2022-04-11] MEDS ORDERED: ONDA4ODT MM (16:53)
== END 2022-04-11 21:26 | disposition home or self-care (01) ==
LOC: ER 14:01
PROVIDERS: Physician Assistant
DX: U07.1 COVID-19 (principal); R11.0 Nausea; E10.22 Type 1 diabetes mellitus with diabetic chronic kidney disease; N18.6 End stage renal disease; I50.9 Heart failure, unspecified; E10.40 Type 1 diabetes mellitus with diabetic neuropathy, unspecified; Z79.899 Other long term (current) drug therapy; Z99.2 Dependence on renal dialysis; Z79.4 Long term (current) use of insulin; Z79.02 Long term (current) use of antithrombotics/antiplatelets; Z79.82 Long term (current) use of aspirin; Z91.012 Allergy to eggs; Z88.5 Allergy status to narcotic agent; Z88.8 Allergy status to other drugs, medicaments and biological substances; Z91.018 Allergy to other foods
CPT/HCPCS: 71046; 80053; 83880; 84484; 85025; 93005; 93010; A9270; J1815; J2405

== ENCOUNTER 2022-06-15 14:30 | Emergency (ER) | payer MEDICARE, OTHER ==
[~2022-06-15] VITALS: Ht 162.6 cm; Wt 54.4 kg
[2022-06-15 15:33] LABS: Bicarbonate Venous 31.7 mmol/L (24.0-30.0); PCO2 Venous 55.9 mmHg (38-42); pH Blood Venous 7.41 (7.34-7.37)
[2022-06-15 15:44] LABS: Source, Urine Clean Catch
[2022-06-15 15:45] LABS: BASOPHILS ABSOLUTE AUTO 0.05 K/mm3 (0.00-0.23); BASOPHILS PERCENT AUTO 1 % (0-2); EOSINOPHILS ABSOLUTE AUTO 0.04 K/mm3 (0.00-0.68); EOSINOPHILS PERCENT AUTO 1 % (0-6); Hematocrit 38.9 % (33.0-51.0); Hemoglobin 12.8 g/dL (11.5-16.0); IMMATURE GRAN ABSOLUTE AUTO 0.03 K/mm3 (0.00-0.10); IMMATURE GRAN PERCENT AUTO 0 % (0-1); LYMPHOCYTES ABSOLUTE AUTO 0.78 K/mm3 (0.84-5.20); LYMPHOCYTES PERCENT AUTO 11 % (21-46); MONOCYTES ABSOLUTE AUTO 0.67 K/mm3 (0.16-1.47); MONOCYTES PERCENT AUTO 10 % (4-13); Mean Corpuscular HGB 29.5 pg (26.0-34.0); Mean Corpuscular HGB Conc 32.9 g/dL (31.5-36.5); Mean Corpuscular Volume 90 fL (80-100); NEUTROPHILS ABSOLUTE AUTO 5.48 K/mm3 (1.96-9.15); NEUTROPHILS PERCENT AUTO 78 % (41-73); Platelet Count 236 K/mm3 (150-400); RDW Coefficient Variation 12.2 % (11.7-14.2); RDW Standard Deviation 40.6 fL (35.1-46.3); Red Blood Cell Count 4.34 M/mm3 (3.80-5.20); White Blood Cell Count 7.05 K/mm3 (4.00-11.30)
[2022-06-15 16:01] LABS: Albumin, Blood 4.1 g/dL (3.4-5.0); Bilirubin, Total 0.5 mg/dL (0.1-1.0); Bun/Creatinine Ratio 16.5 (12.0-20.0); Calcium, Blood 9.7 mg/dL (8.5-10.1); Creatinine, Blood 3.33 mg/dL (0.40-1.00); Globulin, Blood 4.3 g/dL (2.2-4.0); Potassium, Blood 3.4 mmol/L (3.5-5.5); Total Protein, Blood 8.4 g/dL (6.4-8.2)
[2022-06-15 16:38] LABS: Appearance, Urine Hazy (Clear); Bilirubin, Urine Neg (Neg); Blood, Urine 5+ (Neg); Color, Urine Yellow (P-Yellow); Glucose Qualitative, Urine 4+ (Neg); Ketones, Urine Neg (Neg); Leukocyte Esterase, Urine 3+ (Neg); Nitrite, Urine Neg (Neg); Protein, Urine 3+ (Neg); Specific Gravity, Urine 1.015 (1.003-1.022); Urobilinogen, Urine NORM (Normal)
[2022-06-15 17:02] LABS: White Blood Cells, Urine TNTC /hpf (0-5)
[2022-06-15 17:03] LABS: Bacteria Few /hpf; Squamous Epithelial Cells Few /hpf (Few)
[2022-06-15 18:02] LABS: Influenza A, PCR NEGATIVE (NEGATIVE); Influenza B, PCR NEGATIVE (NEGATIVE); Resp Syncytial Virus, PCR NEGATIVE (NEGATIVE); SARS-Cov-2 (COVID-19) PCR, MMC NEGATIVE (NEGATIVE)
[2022-06-15] MEDS ORDERED: CEPH500 PO (20:35)
== END 2022-06-15 21:47 | disposition home or self-care (01) ==
LOC: ER 14:30
PROVIDERS: Student in an Organized Health Care Education/Training Program
DX: R11.2 Nausea with vomiting, unspecified (principal); N39.0 Urinary tract infection, site not specified; I50.9 Heart failure, unspecified; E10.22 Type 1 diabetes mellitus with diabetic chronic kidney disease; E10.65 Type 1 diabetes mellitus with hyperglycemia; E10.40 Type 1 diabetes mellitus with diabetic neuropathy, unspecified; N18.6 End stage renal disease; Z99.2 Dependence on renal dialysis; Z95.1 Presence of aortocoronary bypass graft; Z91.012 Allergy to eggs; Z88.5 Allergy status to narcotic agent; Z88.8 Allergy status to other drugs, medicaments and biological substances; Z91.018 Allergy to other foods; Z79.899 Other long term (current) drug therapy; Z79.4 Long term (current) use of insulin; Z79.82 Long term (current) use of aspirin; Z20.822 Contact with and (suspected) exposure to COVID-19
CPT/HCPCS: 0241U; 36415; 71046; 80053; 81001; 82803; 82947; 83690; 84484; 85025; J0696; J1790; J2405; J7030

== ENCOUNTER 2022-09-03 10:35 | Emergency (ER) | payer MEDICARE, OTHER ==
[~2022-09-03] VITALS: Ht 157.5 cm; Wt 56.0 kg
[2022-09-03 12:13] LABS: BASOPHILS ABSOLUTE AUTO 0.06 K/mm3 (0.00-0.23); BASOPHILS PERCENT AUTO 1 % (0-2); EOSINOPHILS ABSOLUTE AUTO 0.15 K/mm3 (0.00-0.68); EOSINOPHILS PERCENT AUTO 2 % (0-6); Hematocrit 36.3 % (33.0-51.0); Hemoglobin 11.7 g/dL (11.5-16.0); IMMATURE GRAN ABSOLUTE AUTO 0.03 K/mm3 (0.00-0.10); IMMATURE GRAN PERCENT AUTO 0 % (0-1); LYMPHOCYTES ABSOLUTE AUTO 0.62 K/mm3 (0.84-5.20); LYMPHOCYTES PERCENT AUTO 9 % (21-46); MONOCYTES ABSOLUTE AUTO 0.67 K/mm3 (0.16-1.47); MONOCYTES PERCENT AUTO 9 % (4-13); Mean Corpuscular HGB 29.2 pg (26.0-34.0); Mean Corpuscular HGB Conc 32.2 g/dL (31.5-36.5); Mean Corpuscular Volume 91 fL (80-100); Mean Platelet Volume 12.4 fL (9.1-12.4); NEUTROPHILS ABSOLUTE AUTO 5.77 K/mm3 (1.96-9.15); NEUTROPHILS PERCENT AUTO 79 % (41-73); Platelet Count 195 K/mm3 (150-400); RDW Coefficient Variation 13.9 % (11.7-14.2); RDW Standard Deviation 46.3 fL (35.1-46.3); Red Blood Cell Count 4.01 M/mm3 (3.80-5.20)
[2022-09-03 12:31] LABS: Albumin, Blood 3.5 g/dL (3.4-5.0); Albumin/Globulin Ratio 0.8 (0.8-1.8); Bilirubin, Total 0.5 mg/dL (0.1-1.0); Bun/Creatinine Ratio 18.8 (12.0-20.0); Calcium, Blood 8.9 mg/dL (8.5-10.1); Creatinine, Blood 2.55 mg/dL (0.40-1.00); Globulin, Blood 4.2 g/dL (2.2-4.0); Potassium, Blood 4.4 mmol/L (3.5-5.5); Total Protein, Blood 7.7 g/dL (6.4-8.2)
== END 2022-09-03 14:52 | disposition left against medical advice (07) ==
LOC: ER 10:35
PROVIDERS: Physician Assistant
DX: E87.70 Fluid overload, unspecified (principal); Z79.82 Long term (current) use of aspirin; Z79.899 Other long term (current) drug therapy; Z79.4 Long term (current) use of insulin; Z53.21 Procedure and treatment not carried out due to patient leaving prior to being seen by health care provider
CPT/HCPCS: 36415; 80053; 83690; 83880; 85025

== ENCOUNTER 2022-10-08 20:35 | Inpatient (IN) | payer MEDICARE, OTHER ==
[~2022-10-08] VITALS: Ht 162.6 cm; Wt 55.4 kg
[~2022-10-08 20:35] MED LIST changes: -ATOR80 PO
[2022-10-08 21:24] LABS: BASOPHILS ABSOLUTE AUTO 0.07 K/mm3 (0.00-0.23); BASOPHILS PERCENT AUTO 0 % (0-2); EOSINOPHILS ABSOLUTE AUTO 0.02 K/mm3 (0.00-0.68); EOSINOPHILS PERCENT AUTO 0 % (0-6); Hematocrit 33.7 % (33.0-51.0); Hemoglobin 11.2 g/dL (11.5-16.0); IMMATURE GRAN ABSOLUTE AUTO 0.09 K/mm3 (0.00-0.10); IMMATURE GRAN PERCENT AUTO 1 % (0-1); LYMPHOCYTES ABSOLUTE AUTO 0.77 K/mm3 (0.84-5.20); LYMPHOCYTES PERCENT AUTO 5 % (21-46); MONOCYTES ABSOLUTE AUTO 1.15 K/mm3 (0.16-1.47); MONOCYTES PERCENT AUTO 7 % (4-13); Mean Corpuscular HGB 29.6 pg (26.0-34.0); Mean Corpuscular HGB Conc 33.2 g/dL (31.5-36.5); Mean Corpuscular Volume 89 fL (80-100); Mean Platelet Volume 12.3 fL (9.1-12.4); NEUTROPHILS ABSOLUTE AUTO 14.91 K/mm3 (1.96-9.15); NEUTROPHILS PERCENT AUTO 88 % (41-73); Platelet Count 189 K/mm3 (150-400); RDW Standard Deviation 45.5 fL (35.1-46.3); Red Blood Cell Count 3.79 M/mm3 (3.80-5.20); White Blood Cell Count 17.01 K/mm3 (4.00-11.30)
[2022-10-08 21:53] LABS: Albumin, Blood 3.7 g/dL (3.4-5.0); Albumin/Globulin Ratio 0.9 (0.8-1.8); Bilirubin, Total 0.8 mg/dL (0.1-1.0); Bun/Creatinine Ratio 17.4 (12.0-20.0); Calcium, Blood 9.3 mg/dL (8.5-10.1); Creatinine, Blood 3.17 mg/dL (0.40-1.00); Potassium, Blood 3.5 mmol/L (3.5-5.5); Total Protein, Blood 7.7 g/dL (6.4-8.2)
[2022-10-09 01:20] LABS: CHOL/HDL RATIO 2.8; Cholesterol 231 mg/dL (50-200); HDL Cholesterol 84 mg/dL (>39); LDL/HDL RATIO 1.5; Low Density Lipoprotein Chol 122 mg/dL (0-110); Triglycerides 124 mg/dL (30-160); Very Low Density Lipoprot Chol 24 mg/dL (6-32)
[2022-10-09 01:33] LABS: Influenza A, PCR NEGATIVE (NEGATIVE); Influenza B, PCR NEGATIVE (NEGATIVE); Resp Syncytial Virus, PCR NEGATIVE (NEGATIVE); SARS-Cov-2 (COVID-19) PCR, MMC NEGATIVE (NEGATIVE)
[2022-10-09 02:03] LABS: Anti-Xa UFH, PHA Monitoring <0.10 IU/mL; International Normalized Ratio 0.97; Prothrombin Time Results 10.2 Sec (9.7-11.5)
--- NOTE | 2022-10-09 03:34 | NUR ---
ASSUMPTION OF CARE THIS RN ASSUMED CARE OF PT AT 0121, RECEIVED REPORT FROM ER NURSE ARLEY. PT ARRIVED VIA GURNEY, PT WAS ABLE TO TRANSFER INDEPENDENTLY TO PCU BED. PT APPEARS PALE AND FATIGUED. PT SPEECH IS SOFT, BUT IS RESPONDING APPROPRIATELY AND INTERACTING WITH THIS RN. PT'S FRIEND , MARILYN, IS PRESENT AT BEDSIDE. PT DENIES CP, PRESSURE OR SOB. REPORTS NAUSEA AND A HEADACHE BUT OTHERWISE DENIES GENERAL PAIN. VS; BP 165/89 (110), SR W/HR 82, RR 16, SPO2 100% IN 4 L VIA NC. PT DOES NOT APPEAR TO BE IN DISTRESS AT THIS TIME. TELEMETRY VERIFIED. THIS RN DISCUSSED BP W/CAFETERIA ATTENDANT, CADY. IT WAS VERIFIED THAT PT DID NOT TAKE HOME DOSE OF PM HTN MEDICATIONS. CAFETERIA ATTENDANT RESCHEDULED FOR BP MEDICATIONS TO START NOW. WILL RECHECK VITALS AT NEXT SCHEDULED TIME, 0400. PT IS A&O X4. PT ORIENTED TO ROOM, NON-SKID HOSPITAL SOCKS PLACED ON PT. CALL LIGHT IN REACH. HEPARIN BOLUS GIVEN PER EMAR, HEPARIN GTT INFUSING PER EMAR.
[2022-10-09 04:45] LABS: BASOPHILS ABSOLUTE AUTO 0.04 K/mm3 (0.00-0.23); BASOPHILS PERCENT AUTO 0 % (0-2); EOSINOPHILS ABSOLUTE AUTO 0.01 K/mm3 (0.00-0.68); EOSINOPHILS PERCENT AUTO 0 % (0-6); Hematocrit 29.9 % (33.0-51.0); Hemoglobin 9.9 g/dL (11.5-16.0); IMMATURE GRAN PERCENT AUTO 1 % (0-1); LYMPHOCYTES ABSOLUTE AUTO 0.93 K/mm3 (0.84-5.20); LYMPHOCYTES PERCENT AUTO 7 % (21-46); MONOCYTES ABSOLUTE AUTO 0.87 K/mm3 (0.16-1.47); MONOCYTES PERCENT AUTO 6 % (4-13); Mean Corpuscular HGB 29.6 pg (26.0-34.0); Mean Corpuscular HGB Conc 33.1 g/dL (31.5-36.5); Mean Corpuscular Volume 89 fL (80-100); NEUTROPHILS ABSOLUTE AUTO 12.32 K/mm3 (1.96-9.15); NEUTROPHILS PERCENT AUTO 86 % (41-73); Platelet Count 171 K/mm3 (150-400); RDW Coefficient Variation 13.9 % (11.7-14.2); RDW Standard Deviation 45.8 fL (35.1-46.3); Red Blood Cell Count 3.35 M/mm3 (3.80-5.20); White Blood Cell Count 14.27 K/mm3 (4.00-11.30)
[2022-10-09 05:15] LABS: Bun/Creatinine Ratio 17.4 (12.0-20.0); Calcium, Blood 8.4 mg/dL (8.5-10.1); Creatinine, Blood 3.28 mg/dL (0.40-1.00); Potassium, Blood 3.6 mmol/L (3.5-5.5)
--- NOTE | 2022-10-09 06:45 | NUR ---
SHIFT SUMMARY PT REMAINS A&O X4. PT RESTED ON AND OFF THROUGHOUT SHIFT. PT DENIES CP OR PRESSURE, ALE SOB. THIS RN TITRATED PT TO 2 L NC, SP02 MAINTAINS >96%. PT HAD ONE EPISODE OF NAUSEA W/VOMITING; ALTHOUGH PT DID DRY HEAVE. MEDICATED PER EMAR. PT STATES THAT THIS HELPED IMPROVE NAUSEA. SBP DECREASED TO 158 FROM PREVIOUS 165. PT STILL REPORTS MILD HEADACHE. TROPONINS TRENDING DOWN. MORNING LABS SHOWED INCREASE OF GLUCOSE TO 353 FROM 296. THIS RN NOTIFIED HOSPITALIST; NO NEW ORDERS. PROVIDER WANTS TO CONTINUE W/ACHS CBG CHECKS, 0730 AND 0900 COVERAGE. PT HAS BEEN NPO EXCEPT FOR SMALL AMOUNT OF WATER W/MEDICATIONS AND WHEN PT ARRIVED TO PCU. CALL LIGHT IN REACH. WILL UPDATE ONCOMING MICHELINE
--- NOTE | 2022-10-09 07:53 | NUR ---
PROVIDER NOTIFIED: PROVIDER NOTIFIED VIA TELEPHONE RE: PT'S POC GLUCOSE CHECK AND C/O NAUSEA. NO NEW ORDERS AT THIS TIME, PLAN IS TO ADMINISTER MEDICATIONS THAT ARE ALREADY ORDERED AND IN PLACE.
--- NOTE | 2022-10-09 18:42 | NUR ---
SHIFT SUMMARY: PT A&Ox4, O2 SATS >92% O2 TITRATED TO 1 L NC, SR ON MONITOR W/RATE 60s-70s. PT CONTINUE TO C/O NAUSEA T/OUT SHIFT, DOES REPORT THAT IT IS MUCH IMPROVED. POC GLUCOSE CHECKS REVEAL HIGH GLUCOSE LEVELS, PROVIDER NOTIFIED TWICE FOR RESULTS, PT REFUSES TO TAKE RECOMMENDED DOSES AT LUNCH AND DINNER TIMES, IS AGREEABLE TO 4 UNITS EACH TIME. HEPARIN INFUSION CONTINUES PER ORDERS, RATE INCREASED THIS SHIFT. ECHO COMPLETED AT BEDSIDE. TECHNICAL ADMINISTRATOR TO BEDSIDE THIS AM FOR CONSULTATION. AT THIS TIME, PT RESTING QUIETLY IN BED, WILL CONTINUE TO MONITOR AND TREAT ACCORDINGLY UNTIL CHANGE OF SHIFT.
[2022-10-10 05:21] LABS: BASOPHILS ABSOLUTE AUTO 0.09 K/mm3 (0.00-0.23); BASOPHILS PERCENT AUTO 1 % (0-2); EOSINOPHILS ABSOLUTE AUTO 0.16 K/mm3 (0.00-0.68); EOSINOPHILS PERCENT AUTO 2 % (0-6); Hematocrit 29.4 % (33.0-51.0); Hemoglobin 9.8 g/dL (11.5-16.0); IMMATURE GRAN ABSOLUTE AUTO 0.07 K/mm3 (0.00-0.10); IMMATURE GRAN PERCENT AUTO 1 % (0-1); LYMPHOCYTES ABSOLUTE AUTO 1.52 K/mm3 (0.84-5.20); LYMPHOCYTES PERCENT AUTO 21 % (21-46); MONOCYTES ABSOLUTE AUTO 0.76 K/mm3 (0.16-1.47); MONOCYTES PERCENT AUTO 10 % (4-13); Mean Corpuscular HGB 29.3 pg (26.0-34.0); Mean Corpuscular HGB Conc 33.3 g/dL (31.5-36.5); Mean Corpuscular Volume 88 fL (80-100); Mean Platelet Volume 12.6 fL (9.1-12.4); NEUTROPHILS ABSOLUTE AUTO 4.69 K/mm3 (1.96-9.15); NEUTROPHILS PERCENT AUTO 64 % (41-73); Platelet Count 143 K/mm3 (150-400); RDW Coefficient Variation 13.6 % (11.7-14.2); RDW Standard Deviation 44.1 fL (35.1-46.3); Red Blood Cell Count 3.34 M/mm3 (3.80-5.20); White Blood Cell Count 7.29 K/mm3 (4.00-11.30)
[2022-10-10 05:58] LABS: Albumin, Blood 2.7 g/dL (3.4-5.0); Anion Gap 9 mmol/L (6-16); Blood Urea Nitrogen 70 mg/dL (8-24); Bun/Creatinine Ratio 13.5 (12.0-20.0); CO2, Blood 33 mmol/L (21-32); Calcium, Blood 7.8 mg/dL (8.5-10.1); Chloride, Blood 88 mmol/L (98-108); Creatinine, Blood 5.19 mg/dL (0.40-1.00); Glomerular Filtration Rate 9 (60-); Glucose, Blood 279 mg/dL (70-99); Magnesium, Blood 2.4 mg/dL (1.6-2.4); Phosphorus, Blood 4.1 mg/dL (2.5-4.9); Potassium, Blood 3.6 mmol/L (3.5-5.5); Sodium, Blood 130 mmol/L (136-145)
--- NOTE | 2022-10-10 06:19 | NUR ---
SHIFT SUMMARY: A&OX4. ABLE TO MAKE NEEDS KNOWN AND FOLLOW DIRECTIONS. DENIES ANY SOB OR CHEST PAIN. HR SR 60-70, O2 SATS > 92% ON 1-2LPM. RESPIRATIONS ARE EVEN AND UNLABORED. PERSISTANT NAUSEA THROUGHOUT SHIFT. DISCUSSED PT ALLERGIES TO REGLAN, COMPAZINE, AND PHENERGAN, PT UNABLE TO PROVIDE DETAILS OF WHAT ALERGIC CREATION IS TO THESE MEDICATOINS BUT STATES "IT MAKES ME FEEL WORSE". ZOFRAN FREQUENCY INCREASED TO Q4H AND SCOPOLOMINE PATCH PLACED BEHIND RIGHT EAR. MILD IMPROVEMENT WITH SYMPTOMS. PT ABLE TO SLEEP FOR SEVERAL HOURS DURING SHIFT. WILL CONTINUE TO MONITOR.
--- NOTE | 2022-10-10 09:45 | NUR ---
HD ORDERED THIS MORN BY DR RAMIREZ. PT ADAMANTLY REFUSES DIALYSIS. SHE WILL NOT AGREE TO RUN TODAY. DR RAMIREZ NOTIFIED AND ADVISES TO HONOR PT WISHES AT THIS TIME.
--- NOTE | 2022-10-10 11:01 | NUR ---
PT REFUSES DIALYSIS TODAY.
--- NOTE | 2022-10-10 18:31 | NUR ---
SHIFT SUMMARY: PT CONTINUES A&Ox4, O2 SATS MAINTAINED >93% ON RA OR 1 L NC, SR ON MONITOR W/RATE 60s-70s. PT DENIES CHEST PAIN/PRESSURE, BUT OCCASIONALLY REPORTS FEELING OF PALPITATIONS BUT NO CHANGE NOTED ON TELEMETRY. PT CONTINUES TO ENDORSE IMPROVED NAUSEA T/OUT THE SHIFT, NO VOMITING THIS SHIFT. PT REFUSES DIALYSIS TODAY, CONTINUES TO BE SELECTIVE ABOUT AMOUNT OF INSULIN ADMINISTERED. BEDBATH OFFERED, BUT PT REFUSED TODAY. STRESS TEST ORDERS PLACED TODAY, PLAN IS FOR NPO AT MIDNIGHT IN PREP FOR 1 DAY TESTING STARTING TOMORROW AM. PT INFORMED AND AGREEABLE TO PLAN. AT THIS TIME, PT RESTING IN ROOM W/CALL LIGHT IN REACH. WILL CONTINUE TO MONITOR AND TREAT ACCORDINGLY UNTIL CHANGE OF SHIFT.
--- NOTE | 2022-10-10 20:54 | NUR ---
ASSUMED PT CARE FROM ESVIN TOBIAS ON . PT IS A&OX4. COMPLAINS OF SOME LIGHTHEADEDNESS WHEN STANDING OR COUGHING HEAVILY. O2 SATS 95% ON 1 LPM. COMPLAINS OF SLIGHT SOB, LUNG SOUNDS TIGHT/COARSE IN ALL ROTHMAN WITH WHEEZING IN UPPER LOBES. RT CALLED TO REQUEST BREATHING TREATMENT. DENIES ANY CHEST PAIN. HR IS SR IN 60'S-70'S. MEDICATED FOR NAUSEA, SEE EMAR. REINFORMED DIET WITH PT FOR STRESS TEST IN A.M. AND BEING NPO AFTER MN. PT STATES UNDERSTANDING. DENIES FURTHER NEEDS. CALL LIGHT IN REACH.
--- NOTE | 2022-10-11 00:20 | NUR ---
PT REPORTS IMPROVED RESPIRATORY EFFORT. INFORMED OF NPO STATES NOW, PT BECOMES AGGITATED WHEN I REMOVE HER SNACKS STATING "THIS ISN'T [place]", INFORMED PT THIS IS SOMETHING I AM REQUIRED TO DO. PT CALMS DOWN AND APOLOGIZES FOR BEING UPSET. PT REPORTS HAVING SNACKS IN HER BELONGINGS. INFORMED PT THAT IF SHE EATS OR DRINKS AFTER MIDNIGHT HER STRESS TEST MAY BE CANCLED. PT STATES UNDERSTANDING. DENIES FURTHER NEEDS AT THIS ITME.
[2022-10-11 03:31] LABS: BASOPHILS ABSOLUTE AUTO 0.04 K/mm3 (0.00-0.23); BASOPHILS PERCENT AUTO 1 % (0-2); EOSINOPHILS ABSOLUTE AUTO 0.14 K/mm3 (0.00-0.68); EOSINOPHILS PERCENT AUTO 2 % (0-6); Hematocrit 27.1 % (33.0-51.0); IMMATURE GRAN ABSOLUTE AUTO 0.06 K/mm3 (0.00-0.10); IMMATURE GRAN PERCENT AUTO 1 % (0-1); LYMPHOCYTES ABSOLUTE AUTO 1.11 K/mm3 (0.84-5.20); LYMPHOCYTES PERCENT AUTO 18 % (21-46); MONOCYTES ABSOLUTE AUTO 0.74 K/mm3 (0.16-1.47); MONOCYTES PERCENT AUTO 12 % (4-13); Mean Corpuscular HGB 29.1 pg (26.0-34.0); Mean Corpuscular HGB Conc 33.2 g/dL (31.5-36.5); Mean Corpuscular Volume 88 fL (80-100); Mean Platelet Volume 12.4 fL (9.1-12.4); NEUTROPHILS ABSOLUTE AUTO 4.15 K/mm3 (1.96-9.15); NEUTROPHILS PERCENT AUTO 67 % (41-73); Platelet Count 137 K/mm3 (150-400); RDW Coefficient Variation 13.4 % (11.7-14.2); RDW Standard Deviation 43.2 fL (35.1-46.3); Red Blood Cell Count 3.09 M/mm3 (3.80-5.20); White Blood Cell Count 6.24 K/mm3 (4.00-11.30)
[2022-10-11 03:53] LABS: Albumin, Blood 2.8 g/dL (3.4-5.0); Anion Gap 12 mmol/L (6-16); Blood Urea Nitrogen 80 mg/dL (8-24); Bun/Creatinine Ratio 13.7 (12.0-20.0); CO2, Blood 31 mmol/L (21-32); Calcium, Blood 7.7 mg/dL (8.5-10.1); Chloride, Blood 86 mmol/L (98-108); Creatinine, Blood 5.85 mg/dL (0.40-1.00); Glomerular Filtration Rate 8 (60-); Glucose, Blood 384 mg/dL (70-99); Magnesium, Blood 2.4 mg/dL (1.6-2.4); Phosphorus, Blood 4.4 mg/dL (2.5-4.9); Potassium, Blood 3.6 mmol/L (3.5-5.5); Sodium, Blood 129 mmol/L (136-145)
--- NOTE | 2022-10-11 06:36 | NUR ---
PT HAS HAD NO ACUTE CHANGES DURING THE NIGHT. NPO SINCE MN. RESTING IN BED WITH 02 SATS > 92% ON 1 LPM. CALL LIGHT IN REACH.
--- NOTE | 2022-10-11 18:14 | NUR ---
SHIFT SUMMARY; ASSUMED CARE AT 0700. A/A/OX4 DURING SHIFT. STRESS TEST COMPLETE TODAY. REFUSES AM HUMALOG DISPITE EDUCATION ON HIGH BLOOD SUGAR. REFUSED INCREASE IN LONG ACTING OREDERED BY DR. PIERSON. DR. PIERSON TO ROOM, NON COMPLIANCE WITH INSULIN DISCUSSED, PT STATES SHE LIKES HER BLOOD SUGAR TO RUN 250+. VSS, REPORTS NAUSEA DURING SHIFT, MEDICATED PER ORDERS. CHEST PAIN IN EVENING, REQUESTING NITRO. NITRO X2 GIVEN, STATES PAIN RESOLVED, NOTIFIED DR. PIERSON, HE WILL POSSIBLY ADJUST EVENING IMDUR. EVALUATED BY CARDIOLOGY IN EVENING, NOT A CANIDATE FOR ANGIO WITH HX OF NON COMPLIANCE, DR. PIERSON UPDATED, WILL CONTINUE TO MONTIOR AND TREAT UNTIL CHANGE OF SHIFT.
[2022-10-12 03:18] LABS: BASOPHILS ABSOLUTE AUTO 0.06 K/mm3 (0.00-0.23); BASOPHILS PERCENT AUTO 1 % (0-2); EOSINOPHILS ABSOLUTE AUTO 0.21 K/mm3 (0.00-0.68); EOSINOPHILS PERCENT AUTO 3 % (0-6); Hematocrit 26.8 % (33.0-51.0); Hemoglobin 9.2 g/dL (11.5-16.0); IMMATURE GRAN ABSOLUTE AUTO 0.07 K/mm3 (0.00-0.10); IMMATURE GRAN PERCENT AUTO 1 % (0-1); LYMPHOCYTES ABSOLUTE AUTO 1.51 K/mm3 (0.84-5.20); LYMPHOCYTES PERCENT AUTO 21 % (21-46); MONOCYTES ABSOLUTE AUTO 0.75 K/mm3 (0.16-1.47); MONOCYTES PERCENT AUTO 11 % (4-13); Mean Corpuscular HGB 29.9 pg (26.0-34.0); Mean Corpuscular HGB Conc 34.3 g/dL (31.5-36.5); Mean Corpuscular Volume 87 fL (80-100); Mean Platelet Volume 12.5 fL (9.1-12.4); NEUTROPHILS ABSOLUTE AUTO 4.57 K/mm3 (1.96-9.15); NEUTROPHILS PERCENT AUTO 64 % (41-73); Platelet Count 143 K/mm3 (150-400); RDW Coefficient Variation 13.3 % (11.7-14.2); RDW Standard Deviation 41.9 fL (35.1-46.3); Red Blood Cell Count 3.08 M/mm3 (3.80-5.20); White Blood Cell Count 7.17 K/mm3 (4.00-11.30)
[2022-10-12 03:33] LABS: Albumin, Blood 2.8 g/dL (3.4-5.0); Anion Gap 11 mmol/L (6-16); Blood Urea Nitrogen 83 mg/dL (8-24); Bun/Creatinine Ratio 15.5 (12.0-20.0); CO2, Blood 32 mmol/L (21-32); Calcium, Blood 7.9 mg/dL (8.5-10.1); Chloride, Blood 90 mmol/L (98-108); Creatinine, Blood 5.37 mg/dL (0.40-1.00); Glomerular Filtration Rate 9 (60-); Glucose, Blood 221 mg/dL (70-99); Magnesium, Blood 2.3 mg/dL (1.6-2.4); Phosphorus, Blood 3.3 mg/dL (2.5-4.9); Potassium, Blood 3.5 mmol/L (3.5-5.5); Sodium, Blood 133 mmol/L (136-145)
--- NOTE | 2022-10-12 05:06 | NUR ---
PT AWAKE MOST OF THIS SHIFT BUT DOES REPORT THAT SHE HAS BEEN ABLE TO SLEEP FOR "A COUPLE OF HOURS" SHE CONTINUES INDEPENDENT IN ROOM. NO REPORT OF CHEST PAIN THIS SHIFT, DENIES SOB/DYSPNEA AT REST. LUNGS ARE COARSE ON INITIAL AUSCULTATION BUT DO CLEAR WITH COUGH, PT SATS MAINTAIN ON ROOM AIR WITH UP TO 1 L/MIN VIA NASAL CANNULA INTERMITTENTLY THIS SHIFT. HRR, CONTINUES IN SINUS RHYTHM, RATE 60S, PRESSURES MAINTAINING. ACTIVE BOWEL TONES, NO ABD COMPLAINTS THIS SHIFT. UP IND IN ROOM AND TOLERATES WELL, GAIT STEADY. SHE IS NOTED TO CLOSELY MONITOR BLOOD GLUCOSE LEVELS WITH HOME METER, SHE ACCEPTED HUMALOG 5 UNITS SQ FOR SLIDING SCALE COVERAGE AT FOR BLOOD GLUCOSE GREATER THAN 400, CALL WAS PLACED TO HOSPITALIST ASSEMBLER INSTALLER GENERAL IBETH NICHOLSON REGARDING ELEVATED BLOOD GLUCOSE LEVEL, ORDERS TO RECHECK IN APPROXIMATELY 1 HOUR FROM HUMALOG ADMINISTRATION AND PLAN WAS FOR NO INTERVENTION IF LESS THAN 400, ON RECHECK AT 2044, BLOOD GLUCOSE LEVEL WAS 333. PT CONTINUED TO MONITOR AND EXPRESSED CONCERN REGARDING DOWNWARD TREND AT 333, REQUESTED SANDWICH AND JUICE. BLOOD GLUCOSE LEVES HAVE REMAINED BETWEEN 2 AND 300 PER PT'S HOME MONITOR.
--- NOTE | 2022-10-12 11:09 | NUR ---
[place] of Care: Care assumed at 0700hr. Patient alert and oriented x4, sitting at side of bed. Denies pain or discomfort. VSS heart rhythm show's sinus in the 60's, spO2- 98% on RA, denies dyspnea or SOB. Heparin gtt at 17u/kg/hr. Will discuss discontinuation of this gtt with Dr. August this morning. Patient refusing ordered dose of 25 Lantus this morning and requesting 18u. Call placed to Dr. Chance and order received for 18u Lantus qday. Permacath to rt upper chest, catheter and site appear wnl, but no dressing in place (open to air). Perma-cath site cleaned with chlorahexidine and CHG dressing applied. Call light in reach, makes needs known. Will continue to monitor.
--- NOTE | 2022-10-12 18:21 | NUR ---
Shift Summary: No significant changes throughout remainder of shift. VS remain stable, spO2-95-98% on RA. Continues to deny dyspnea/SOB. Denies pain except c/o mild chest pain/discomfort with transfer to shower and back to bed. Dr. August to bedside to discuss care, shortly after patient finished shower. Dr. August discussed risk involved (stent occlusion) with placing cardiac stent with uncontrolled DM, renal failure, and gastroparesis. Due to ongoing chest pain with activity, plan made to perform angiogram tomorrow 10/13/22. Patient conveyed understanding of risk involved, all questions answered to her satisfaction. Dr. August instructed to keep patient on heparin gtt. Patient cooperative with nursing care throughout remainder of shift, accepted AC ss insulin. Tolerating food trays but only 30-50% intake, adequate intake of fluids. Peripheral IV remains patent and intact. Will continue to monitor until report to NOC shift RN.
--- NOTE | 2022-10-12 21:37 | NUR ---
ASSUMED CARE ASSUMED CARE AT 1900. PT A/O X 4. CALM AND COOPERATIVE W/ CARE. VSS. ON RA W/ SPO2 GREATER THAN 90%. HEPARIN GTT INFUSING. SEE FLOWSHEET. DENIES N/V AND CHEST PAIN AT THIS TIME. EDUCATED PT ON CALLING IF CHEST PAIN OCCURS. PT VERBALIZED UNDERSTANDING. IND TO BSC. CALL LIGHT WITHIN REACH.
[2022-10-13 03:00] LABS: Hemoglobin 9.5 g/dL (11.5-16.0)
[2022-10-13 03:14] LABS: Albumin, Blood 2.8 g/dL (3.4-5.0); Anion Gap 11 mmol/L (6-16); Blood Urea Nitrogen 76 mg/dL (8-24); Bun/Creatinine Ratio 16.1 (12.0-20.0); CO2, Blood 30 mmol/L (21-32); Calcium, Blood 8.2 mg/dL (8.5-10.1); Chloride, Blood 93 mmol/L (98-108); Creatinine, Blood 4.72 mg/dL (0.40-1.00); Glomerular Filtration Rate 10 (60-); Glucose, Blood 322 mg/dL (70-99); Magnesium, Blood 1.9 mg/dL (1.6-2.4); Phosphorus, Blood 3.4 mg/dL (2.5-4.9); Potassium, Blood 3.9 mmol/L (3.5-5.5); Sodium, Blood 134 mmol/L (136-145)
--- NOTE | 2022-10-13 04:07 | NUR ---
CHEST PAIN THIS RN ASKED PT DURING 399 ASSESSMENT IF SHE WAS HAVING CHEST PAIN. PT STATED "YES, LIKE NORMAL." PT STATES IT IS MINIMAL, CONTSANT AND NOT RADIATING. OFFERED PT NITRO, PT DECLINED.
--- NOTE | 2022-10-13 05:51 | NUR ---
SHIFT SUMMARY NO ACUTE EVENTS T/O NIGHT. VSS. REMAINS ON RA W/ SPO2 GREATER THAN 90%. PT UP IND IN ROOM TO BSC. HEPARIN INFUSING. PT REPORTS BEING AWAKE MOST OF THE NIGHT. STATES THIS IS BASELINE FOR HER. NO NEW ONSETS OF CHEST PAIN. WILL REPORT OFF TO ONCOMING RN.
--- NOTE | 2022-10-13 18:08 | NUR ---
SHIFT SUMMARY PT WAS RESTING QUIETLY IN BED UNTIL THEY WERE TAKEN TO THE HEART CENTER. PT WAS TAKEN TO INPATIENT DIALYSIS IMMEDIATELY AFTER LEAVING THE HEART CENTER. PT HAS C/O NAUSEA, AT APPROXIMATELY 1000 STATING "WHEN MY BLOOD SUGAR COMES DOWN FROM BEING HIGH I GET NAUSEOUS," AND AGAIN NEAR THE END OF DIALYSIS. LEFT RADIAL SITE HAS BEEN SOFT, NONTENDER, WITH GOOD DISTAL PULSES, AND NO HEMATOMA NOTED. PT HAS DENIED THE PRESENCE OF CHEST PAIN. PT HAS BEEN UP TO THE RESTROOM WITH MINIMAL ASSISTANCE AND DENIED ANY C/O OTHER PAIN OR DISCOMFORT.
[2022-10-14 04:43] LABS: BASOPHILS ABSOLUTE AUTO 0.05 K/mm3 (0.00-0.23); BASOPHILS PERCENT AUTO 0 % (0-2); EOSINOPHILS ABSOLUTE AUTO 0.15 K/mm3 (0.00-0.68); EOSINOPHILS PERCENT AUTO 1 % (0-6); Hematocrit 32.7 % (33.0-51.0); IMMATURE GRAN ABSOLUTE AUTO 0.09 K/mm3 (0.00-0.10); IMMATURE GRAN PERCENT AUTO 1 % (0-1); LYMPHOCYTES ABSOLUTE AUTO 0.48 K/mm3 (0.84-5.20); LYMPHOCYTES PERCENT AUTO 4 % (21-46); MONOCYTES ABSOLUTE AUTO 0.93 K/mm3 (0.16-1.47); MONOCYTES PERCENT AUTO 7 % (4-13); Mean Corpuscular HGB 29.7 pg (26.0-34.0); Mean Corpuscular HGB Conc 33.6 g/dL (31.5-36.5); Mean Corpuscular Volume 88 fL (80-100); Mean Platelet Volume 12.8 fL (9.1-12.4); NEUTROPHILS ABSOLUTE AUTO 11.29 K/mm3 (1.96-9.15); NEUTROPHILS PERCENT AUTO 87 % (41-73); Platelet Count 162 K/mm3 (150-400); RDW Coefficient Variation 13.8 % (11.7-14.2); RDW Standard Deviation 44.6 fL (35.1-46.3); White Blood Cell Count 12.99 K/mm3 (4.00-11.30)
[2022-10-14 05:08] LABS: Albumin, Blood 3.2 g/dL (3.4-5.0); Anion Gap 13 mmol/L (6-16); Blood Urea Nitrogen 44 mg/dL (8-24); Bun/Creatinine Ratio 14.7 (12.0-20.0); CO2, Blood 27 mmol/L (21-32); Calcium, Blood 8.6 mg/dL (8.5-10.1); Chloride, Blood 93 mmol/L (98-108); Glomerular Filtration Rate 18 (60-); Glucose, Blood 369 mg/dL (70-99); Magnesium, Blood 1.9 mg/dL (1.6-2.4); Phosphorus, Blood 2.7 mg/dL (2.5-4.9); Potassium, Blood 3.7 mmol/L (3.5-5.5); Sodium, Blood 133 mmol/L (136-145)
--- NOTE | 2022-10-14 05:54 | NUR ---
Assumed care of pt at 1900. A/Ox4. C/o significant abdominal pain with associated dry heaving and 1 episode of emesis that was 150ml clear/light green in color. Significant amounts of belching noted, gas-x ordered. Medicated with PRN's and patient was able to get some rest. Patient did not eat/drink anything this shift but was able to keep oral medications down. Maintains over 95% on RA. LS clear on top and dim at bases with moist nonproductive cough. SR 70's on tele with strong pulses t/o. Denies cp/pressure, VSS. 1+ pitting edema BLE and trace edema orbital. Mild abdominal distention. L radial site C/D/I with small hematoma noted. No acute changes, will report to dayssarah TOBIAS.
[2022-10-14] MEDS ORDERED: TRANSDERM-SCOP1 EA10 TD (12:43)
--- NOTE | 2022-10-14 15:56 | NUR ---
DISCHARGE SUMMARY PT WAS TRANSPORTED TO A PERSONAL VEHICLE BY WHEELCHAIR. ALL PERSONAL BELONGINGS AND DISCHARGE INSTRUCTIONS WERE IN THE PT'S POSSESSION AT THE TIME OF DISCHARGE. PT EXPRESSED NO QUESTIONS OR CONCERNS REGARDING DISCHARGE AND STATED AN UNDERSTANDING OF ALL INSTRUCTIONS.
== END 2022-10-14 15:45 | disposition home or self-care (01) | DRG 391 ==
LOC: ER 20:35 → PCU 10-09 00:37
PROVIDERS: Family Medicine; Internal Medicine Nephrology; Physician Assistant; ADMIT Family Medicine
PROC: 5A1D70Z Performance of Urinary Filtration, Intermittent, Less than 6 Hours Per Day (ICD-10-PCS; 2022-10-09)
PROC: 4A023N7 Measurement of Cardiac Sampling and Pressure, Left Heart, Percutaneous Approach (ICD-10-PCS; principal; 2022-10-13)
PROC: B211YZZ Fluoroscopy of Multiple Coronary Arteries using Other Contrast (ICD-10-PCS; 2022-10-13)
PROC: B218YZZ Fluoroscopy of Left Internal Mammary Bypass Graft using Other Contrast (ICD-10-PCS; 2022-10-13)
PROC: B240ZZ3 Ultrasonography of Single Coronary Artery, Intravascular (ICD-10-PCS; 2022-10-13)
DX: A08.4 Viral intestinal infection, unspecified (principal); I21.A1 Myocardial infarction type 2; N18.6 End stage renal disease; I50.42 Chronic combined systolic (congestive) and diastolic (congestive) heart failure; I13.2 Hypertensive heart and chronic kidney disease with heart failure and with stage 5 chronic kidney disease, or end stage renal disease; N25.81 Secondary hyperparathyroidism of renal origin; E87.1 Hypo-osmolality and hyponatremia; I25.10 Atherosclerotic heart disease of native coronary artery without angina pectoris; K21.9 Gastro-esophageal reflux disease without esophagitis; E78.00 Pure hypercholesterolemia, unspecified; F41.8 Other specified anxiety disorders; D63.1 Anemia in chronic kidney disease; E10.22 Type 1 diabetes mellitus with diabetic chronic kidney disease; E10.42 Type 1 diabetes mellitus with diabetic polyneuropathy; E10.43 Type 1 diabetes mellitus with diabetic autonomic (poly)neuropathy; K31.84 Gastroparesis; E86.9 Volume depletion, unspecified; J44.9 Chronic obstructive pulmonary disease, unspecified; M19.90 Unspecified osteoarthritis, unspecified site; M54.9 Dorsalgia, unspecified; G89.29 Other chronic pain; E86.0 Dehydration; Z20.822 Contact with and (suspected) exposure to COVID-19; Z95.1 Presence of aortocoronary bypass graft; Z99.2 Dependence on renal dialysis; Z95.5 Presence of coronary angioplasty implant and graft; Z87.81 Personal history of (healed) traumatic fracture; Z96.89 Presence of other specified functional implants; Z98.890 Other specified postprocedural states; Z87.891 Personal history of nicotine dependence; Z79.899 Other long term (current) drug therapy; Z79.82 Long term (current) use of aspirin; Z88.8 Allergy status to other drugs, medicaments and biological substances; Z88.5 Allergy status to narcotic agent; Z91.012 Allergy to eggs; Z91.018 Allergy to other foods; Z91.15 Patient's noncompliance with renal dialysis; Z79.51 Long term (current) use of inhaled steroids; Z79.02 Long term (current) use of antithrombotics/antiplatelets; Z79.4 Long term (current) use of insulin
CPT/HCPCS: 0241U; 36415; 71045; 74177; 76937; 78452; 80048; 80053; 80061; 80069; 82947; 83690; 83735; 83880; 84484; 85014; 85018; 85025; 85520; 85610; 93005; 93010; 93017; 93306; 93455; 94762; 96374-59; 96375; 96376; 99152; 99153; 99284-25; A9270; A9500; C1769; C1894; J0706; J0881; J1644; J1815; J2405; J2785; J3010; J7030; J7040; J7050; Q9967

== ENCOUNTER 2022-11-05 11:19 | Inpatient (IN) | payer MEDICARE, OTHER ==
[~2022-11-05] VITALS: Ht 165.1 cm; Wt 61.8 kg
[~2022-11-05 11:19] MED LIST changes: +BUME2 PO; -BUMETANIDE2 M3 PO; +TRANSDERM-SCOP1 EA10 TD
[2022-11-05 11:52] LABS: BASOPHILS ABSOLUTE AUTO 0.08 K/mm3 (0.00-0.23); BASOPHILS PERCENT AUTO 1 % (0-2); EOSINOPHILS ABSOLUTE AUTO 0.06 K/mm3 (0.00-0.68); EOSINOPHILS PERCENT AUTO 1 % (0-6); Hemoglobin 10.7 g/dL (11.5-16.0); IMMATURE GRAN ABSOLUTE AUTO 0.05 K/mm3 (0.00-0.10); IMMATURE GRAN PERCENT AUTO 0 % (0-1); LYMPHOCYTES ABSOLUTE AUTO 0.47 K/mm3 (0.84-5.20); LYMPHOCYTES PERCENT AUTO 4 % (21-46); MONOCYTES ABSOLUTE AUTO 0.85 K/mm3 (0.16-1.47); MONOCYTES PERCENT AUTO 7 % (4-13); Mean Corpuscular HGB 29.9 pg (26.0-34.0); Mean Corpuscular HGB Conc 32.4 g/dL (31.5-36.5); Mean Corpuscular Volume 92 fL (80-100); Mean Platelet Volume 11.8 fL (9.1-12.4); NEUTROPHILS PERCENT AUTO 88 % (41-73); Platelet Count 203 K/mm3 (150-400); RDW Coefficient Variation 14.6 % (11.7-14.2); RDW Standard Deviation 49.5 fL (35.1-46.3); Red Blood Cell Count 3.58 M/mm3 (3.80-5.20); White Blood Cell Count 12.31 K/mm3 (4.00-11.30)
[2022-11-05 12:03] LABS: Bun/Creatinine Ratio 24.7 (12.0-20.0); Calcium, Blood 8.9 mg/dL (8.5-10.1); Creatinine, Blood 2.88 mg/dL (0.40-1.00); Potassium, Blood 3.6 mmol/L (3.5-5.5)
[2022-11-05] MEDS ORDERED: PANT20 PO (12:54)
[2022-11-05] MEDS ORDERED: GABA100 PO (12:55)
[2022-11-05 17:13] LABS: Influenza A, PCR NEGATIVE (NEGATIVE); Influenza B, PCR NEGATIVE (NEGATIVE); Resp Syncytial Virus, PCR NEGATIVE (NEGATIVE); SARS-Cov-2 (COVID-19) PCR, MMC NEGATIVE (NEGATIVE)
--- NOTE | 2022-11-05 19:40 | NUR ---
SHIFT SUMMARY- PT ARRIVED ON MEDICAL FLOOR FROM THE ED. NOTED CRITICAL TROPONIN IN PT LABS AND CALLED IBETH, HE IS AWARE NO NEW ORDERS, TRENDING TROPONINS ORDERED Q2 ALREADY. NEXT TROPONIN WAS ELEVATED FURTHER CALLED DR PITTS, HE IS AWARE, HE CONFIRMED ADDITIONAL TROPONINS WERE ORDERED, NO OTHER ORDERS. PT IS ASYMPTOMATIC AT THIS TIME. DR RAMIREZ CAME TO SEE HER SOON SHE WAS ADMITTED. PT AGREED TO DO DIALYSIS TODAY AND TOMORROW. DIALYSIS IS BEING COMPLETED IN THE ROOM. PT RECIEVED IV BUMEX IN THE ED. CALLED PHARMACY TO VERIFY TIMING OF THE RESUMED HOME MEDICATION, PHARMACY CHANGED THE TIMING FOR IT IT WAS TOO SOON TO ADMINISTER, THAT DOSE WAS HELD PER PHARMACY. PT HAD AN ORDER FOR LANTUS INSULIN 18 UNITS. THE PT STATED SHE WOULD NOT TAKE THAT MUCH, SHE ALSO STATED SHE ALREADY TOOK HER LONG ACTING INSULIN THIS MORNING. THIS DOSE WAS HELD PER PT REFUSAL. PASSED ALL ON TO NIGHT RN IN REPORT. LAST TROPONIN WAS DRAWN AT 1830. NO MORE ARE ORDERED BEYOND THIS TEST. NIGHT RN AWARE.
--- NOTE | 2022-11-05 20:51 | NUR ---
NURSE NOTE. NOTIFIED DR PITTS ABOUT CRITICAL 1619 TROPONIN THAT IS TRENDING UP. PATIENT REPORTS NO CHEST PAIN. ORDERED ANOTHER TROPONIN AT [address] PITTS. WILL CONTINUE TO MONITOR.
[2022-11-06 02:07] LABS: Hematocrit 29.4 % (33.0-51.0); Hemoglobin 9.7 g/dL (11.5-16.0); Mean Corpuscular HGB 29.6 pg (26.0-34.0); Mean Corpuscular Volume 90 fL (80-100); Mean Platelet Volume 11.6 fL (9.1-12.4); Platelet Count 206 K/mm3 (150-400); RDW Coefficient Variation 14.6 % (11.7-14.2); RDW Standard Deviation 47.8 fL (35.1-46.3); Red Blood Cell Count 3.28 M/mm3 (3.80-5.20); White Blood Cell Count 13.57 K/mm3 (4.00-11.30)
[2022-11-06 03:05] LABS: Albumin, Blood 4.1 g/dL (3.4-5.0); Anion Gap 13 mmol/L (6-16); Blood Urea Nitrogen 37 mg/dL (8-24); Bun/Creatinine Ratio 15.7 (12.0-20.0); CO2, Blood 26 mmol/L (21-32); Calcium, Blood 9.2 mg/dL (8.5-10.1); Chloride, Blood 95 mmol/L (98-108); Creatinine, Blood 2.35 mg/dL (0.40-1.00); Glomerular Filtration Rate 24 (60-); Glucose, Blood 251 mg/dL (70-99); Phosphorus, Blood 3.2 mg/dL (2.5-4.9); Potassium, Blood 3.8 mmol/L (3.5-5.5); Sodium, Blood 134 mmol/L (136-145)
--- NOTE | 2022-11-06 04:49 | NUR ---
SHIFT SUMMARY PATIENT IS ALERT AND ORIENTED. PATIENT HAD DIALYSIS THIS SHIFT. PATIENT HAS HAD UPWARD TRENDING TROPONINS, LAST TROPONIN IS 3222. DR PITTS AND GABRIELA ARE AWARE OF CRITICAL TROPONINS. PATIENT HAS HAD NO CHEST PAIN ALL SHIFT. PATIENT HAS BEEN HAVING NAUSEA AND VOMITTING MOST OF SHIFT. PATIENT HAS HAD NO COMPLAINTS OF PAIN OR SOB THIS SHIFT. PATIENT HAS BEEN RESTING OFF AND ON THIS SHIFT. VITAL SIGNS REVIEWED. BED IN LOCKED AND LOWEST POSITION. CALL LIGHT IN PLACE. WILL MONITOR UNTIL SHIFT CHANGE.
--- NOTE | 2022-11-06 11:34 | NUR ---
PATIENT BECAME UPSET WITH DR. AUSTIN DURING HER ROUNDS THIS MORNING WHILE DR. AUSTIN WAS ENCOURAGING THE PATIENT TO HAVE DIALYSIS TODAY. THE PATIENT INSISTED THAT SHE WAS NOT GOING TO HAVE DIALYSIS BECAUSE IT MAKES HER SICK AND SHE DIDNT WANT TO HEAR ANYMORE ABOUT IT. THE PATIENT'S FRIEND AT THE BEDSIDE TOLD THE PATIENT THAT SHE WAS NAUSEOUS AND VOMITING AT HOME BEFORE SHE CAME TO HOSPITAL AND THIS WAS NOT AFTER RECIEVING DIALYSIS. THE PATIENT WAS SHOCKED TO HEAR THIS BECAUSE SHE THOUGHT SHE ONLY BECAME NEASEOUS AFTER DIALYSIS HERE AT THE HOSPITAL. WITH THIS NEW INFORMATION, THE RN WAS ABLE TO TALK WITH THE PATIENT ABOUT HAVING DIALYIS TODAY AND SHE WAS AGREABLE.
--- NOTE | 2022-11-06 17:57 | NUR ---
will review with dr gaspar may need out pt Gi consult fro nause and poor GI function.
--- NOTE | 2022-11-06 19:26 | NUR ---
PATIENT IS ALERT AND ORIENTED AND COOPERATIVE WITH CARE. PATIENT HAD DIALYSIS TODAY. C/O NV, MEDICATED PER EMAR. PATIENT WAS ABLE TO EAT SOME OF HER BREAKFAST AND LUNCH. DID NOT EAT DINNER BUT HAS BEEN DRINKING WATER AND DIET SODA. PATIENT'S FRIEND HAS BEEN AT THE BEDSIDE THIS SHIFT. PALLIATIVE CARE SAW THE PATIENT. REPORT GIVEN TO ONCOMING RN.
[2022-11-07 04:37] LABS: Hematocrit 27.6 % (33.0-51.0)
[2022-11-07 05:01] LABS: Albumin, Blood 3.6 g/dL (3.4-5.0); Anion Gap 12 mmol/L (6-16); Blood Urea Nitrogen 38 mg/dL (8-24); Bun/Creatinine Ratio 12.3 (12.0-20.0); CO2, Blood 28 mmol/L (21-32); Calcium, Blood 8.5 mg/dL (8.5-10.1); Chloride, Blood 90 mmol/L (98-108); Glomerular Filtration Rate 17 (60-); Glucose, Blood 354 mg/dL (70-99); Magnesium, Blood 2.2 mg/dL (1.6-2.4); Phosphorus, Blood 3.6 mg/dL (2.5-4.9); Potassium, Blood 3.6 mmol/L (3.5-5.5); Sodium, Blood 130 mmol/L (136-145)
--- NOTE | 2022-11-07 05:34 | NUR ---
DATA MANAGEMENT ASSOCIATE SUMMARY: A&Ox4. PLEASANT AND COOPERATIVE WITH CARE. CALLS APPROPRIATELY AND IS ABLE TO COMMUNICATE NEEDS EFFECTIVELY. C/O NAUSEA LAST NIGHT EVEN AFTER IV DOSE OF ZOFRAN. RESOLVED AFTER SOME SALTINES AND APPLE JUICE. LABS DRAWN THIS AM; NO CRITICAL VALUES RECEIVED. PT AWARE OF POSSIBILITY OF HAVING DIALYSIS TODAY, BUT IS CONCERNED R/T NAUSEA THAT TYPICALLY ENSUES. SOME DESATTING LAST NIGHT 88%-90% AND PLACED ON 2L/min VIA NC BRINGING UP TO 98%. THIS ALSO SEEMED TO HELP WITH HER NAUSEA. NO ACUTE EVENTS. WILL REPORT TO ONCOMING RN.
--- NOTE | 2022-11-07 11:56 | NUR ---
BLOOD SUGAR DR ELKINS NOTIFIED OF LUNCH CBG. ORDER RECEIVED FOR MEDIUM SLIDING SCALE. CONTINUE POC.
--- NOTE | 2022-11-07 16:58 | NUR ---
HIGH CBG GLUCOMETER REGISTERED A HIGH CBG. CALLED LAB FOR STAT GLUCOSE LEVEL. PT DOESN'T FEEL GOOD. CONTINUE POC.
[2022-11-07 17:25] LABS: Glucose, Blood 571 mg/dL (70-99)
[2022-11-07 21:30] LABS: Bun/Creatinine Ratio 12.7 (12.0-20.0); Calcium, Blood 8.5 mg/dL (8.5-10.1); Creatinine, Blood 4.56 mg/dL (0.40-1.00); Potassium, Blood 3.8 mmol/L (3.5-5.5)
[2022-11-08 06:23] LABS: Hematocrit 26.9 % (33.0-51.0); Hemoglobin 8.9 g/dL (11.5-16.0)
--- NOTE | 2022-11-08 06:25 | NUR ---
GARAGE DOOR TECHNICIAN SUMMARY: A&Ox4. PLEASANT AND COOPERATIVE WITH CARE. CALLS APPROPRIATELY AND IS ABLE TO COMMUNICATE NEEDS EFFECTIVELY. BLOOD SUGARS WERE VERY HIGH YESTERDAY AND WERE <400 BY THE TIME SHE WENT TO BED LAST NIGHT. ORDER FOR SCOPALAMINE PATCH FOR CONTINUED NAUSEA. PRN ZOFRAN ADMINISTERED x1. IV PULLED AND WAS REPLACED. LABS DRAWN LAST NIGHT TO R/O DKA; HYPONATREMIC BUT NOT CRITICAL. LABS AGAIN THIS MORNING. WILL REPORT TO ONCOMING RN.
[2022-11-08 06:59] LABS: Albumin, Blood 3.2 g/dL (3.4-5.0); Anion Gap 15 mmol/L (6-16); Blood Urea Nitrogen 66 mg/dL (8-24); Bun/Creatinine Ratio 13.3 (12.0-20.0); CO2, Blood 24 mmol/L (21-32); Chloride, Blood 86 mmol/L (98-108); Creatinine, Blood 4.98 mg/dL (0.40-1.00); Glomerular Filtration Rate 10 (60-); Glucose, Blood 367 mg/dL (70-99); Magnesium, Blood 2.2 mg/dL (1.6-2.4); Phosphorus, Blood 4.7 mg/dL (2.5-4.9); Potassium, Blood 4.1 mmol/L (3.5-5.5); Sodium, Blood 125 mmol/L (136-145)
--- NOTE | 2022-11-08 10:19 | NUR ---
REFUSED DIALYSIS DR RAMIREZ ROUNDED ON PT. JONNIE COLLAZO HAD CALLED WITH A 0900 RUN TIME. PT CALLED AND ASKED FOR ANTONETTEFRNATALIA. BROUGHTHER [place],. FOUND HER DANGLING AND SOBBING AND DRY HEAVING. AFTER TALKING WITH HER CALLED DR RAMIREZ AND REQUESTED XANAX PER PT REQUEST. MEDICATED WITH XANAX. AFTER SITTING WITH HER FOR AWHILE SHE VERY QUIETLY ASKED, " DO YOU WORK WITH HOSPICE?" RELIED YES. SHE THEN STARTED TALKING ABOUT STOPPING DIALYSIS. SHE ASKED, " HOWLONG WILL I LIVE WITHOUT DIALYSIS?" WE TALKED ABOUT HOSPICE AND THEIR SERVICES. rEASKED HER IF SHE WANTED TO DECLINE DIALYSIS TODAY. SHE STATED "yES." CALLED DIALYSIS AND TOLD JONNIE. tHEN CALLED DR RAMIREZ. HE UNDERSTOOD. HE WILL ROUND WITH HER TOMORROW. TALKED WITH DR AUSTIN. REFERRAL TO [facility] RECEIVED. MESSAGE LEFT AT THE OFFICE. CAUGHT HER UP ON HER MORNING MEDICATIONS. CONTINUE POC.
[2022-11-08 12:39] LABS: Glucose, Blood 634 mg/dL (70-99)
--- NOTE | 2022-11-08 14:43 | NUR ---
MAIL CARRIER AND CLERK FAMILY AT BEDSIDE. JOVIAL ATMOSPHERE. THEY HAVE CONTACT THE FAMILY MAIL CARRIER AND CLERK TO LITERACY TEACHER TO PT. PT WANTS TO "CLEAR HER PATH TO [facility]." CONTINUE POC.
--- NOTE | 2022-11-08 16:56 | NUR ---
AIXA NOTE PT SPENT THE AFTERNOON BEING SUPPORTED AND LOVED ON BY HER FAMILY. SHE CONTINUES TO TALK ABOUT MEETING HOSPICE TOMORROW. VSS. CBG ELEVATED. HIGH SLIDING SCALE INSULIN GIVEN. SHE BEEN SICK TO HER STOMACH. ZOFRAN X2 GIVEN. FLUID RESTRICTION STOPPED. SHE HAS BEEN ENJOYING DIET SQUIRT. NON VOID. [facility] MESSSAGE LEFT FOR TOMORROW. CONTINUE POC.
[2022-11-09 04:49] LABS: Hematocrit 27.6 % (33.0-51.0); Hemoglobin 9.1 g/dL (11.5-16.0)
[2022-11-09 05:14] LABS: Albumin, Blood 3.1 g/dL (3.4-5.0); Anion Gap 14 mmol/L (6-16); Blood Urea Nitrogen 91 mg/dL (8-24); Bun/Creatinine Ratio 13.3 (12.0-20.0); CO2, Blood 25 mmol/L (21-32); Calcium, Blood 8.3 mg/dL (8.5-10.1); Chloride, Blood 86 mmol/L (98-108); Creatinine, Blood 6.82 mg/dL (0.40-1.00); Glomerular Filtration Rate 7 (60-); Glucose, Blood 270 mg/dL (70-99); Magnesium, Blood 2.5 mg/dL (1.6-2.4); Phosphorus, Blood 5.3 mg/dL (2.5-4.9); Potassium, Blood 4.7 mmol/L (3.5-5.5); Sodium, Blood 125 mmol/L (136-145)
--- NOTE | 2022-11-09 05:23 | NUR ---
A&Ox4. PLEASANT AND COOPERATIVE WITH CARE. CALLS APPROPRIATELY AND IS ABLE TO COMMUNICATE NEEDS EFFECTIVELY. PRN ZOFRAN ADMINISTERED x2 LAST NIGHT TO HELP CONTROL CHRONIC NAUSEA. DID NOT EAT LAST NIGHT BUT ASKED FOR COFFEE AND A SANDWICH THIS AM. LABS THIS AM; NO CRITICAL VALUES REPORTED AT THIS TIME. BLOOD SUGARS BELOW 400 THIS SHIFT. ANTICIPATE DC HOME WITH PALLIATIVE CARE/HOSPICE REFERRAL D/T CHOOSING AGAINST HEMODIALYSIS. WILL REPORT TO ONCOMING RN.
--- NOTE | 2022-11-09 11:38 | NUR ---
RN NOTE MS SHEN IS A&OX4. SHE TRIED TAKING OXYGEN OFF THIS MORNING TO SEE HOW SHE FELT SHE SAID SHE WANTED TO SEE IF SHE COULD GO HOME WITHOUT OXYGEN, BUT DID C/O SOB AT REST. UP TO THE SHOWER, VOIDED SMALL AMOUNT THIS AM AM C/O SOME BURNING ON URINATION, SAMPLE REQUESTED WITH NEXT VOID. ON TELEMETRY SINUS BRADYCARDIA 50S, NO CALLS FROM TEST DRILLER. PERMACATH RIGHT CHEST, DRESSING C,D,I. PT SAID SHE WILL GO FOR DIALYSIS TOMORROW. SHE DOES NOT WANT TO FOLLOW THE 1000CC FLUID RESTRICTION, SAID THAT SHE DOES NOT WANT TO GO INTO FLUID OVERLOAD AND KNOWS HOW BAD IT FEELS, BUT THAT SHE WANTS MORE THAN 1000CC/DAY. SHE SAID THAT SHE IS NOT READY FOR HOSPICE CARE PRESENTLY. SHE HAS A SUPPORTIVE FRIEND VISITING HER. GIVEN ZOFRAN FOR NAUSEA, NO VOMITING THIS AM, TOLERATING DIET.
--- NOTE | 2022-11-09 16:19 | NUR ---
SHIFT SUMMARY MS SHEN HAS WALKED IN THE HALLWAYS TODAY WITH HER FAMILY. SHE SAID SHE FELT WEAK WHEN SHE GOT TO THE ELEVATORS AND WAS SUPPORTED BY FAMILY. SHE WALKED OFF OXYGEN, SAT ON RETURN ON RA WAS 97-98%. AFTER REST SAT 95%. VOIDED ONCE TODAY (LARGE VOLUME PER PT, BUT IT WAS NOT SAVED), DID C/O SOME DYSURIA.TELE SB, NO CALLS FROM SQL REPORT DEVELOPER. NAUSEA CONTROLLED WITH MEDS. PT HAD PREVIOUSLY CONSIDERED HOSPICE CARE, BUT SAID THAT SHE IS NOT READY TO DO THAT, SHE HAS AGREED TO HEMODIALYSIS TOMORROW. BED LOW, CALL LIGHT IN REACH. FAMILY VISITED TODAY.
[2022-11-09 18:00] LABS: Source, Urine Clean Catch
[2022-11-09 18:21] LABS: Appearance, Urine Cloudy (Clear); Blood, Urine 4+ (Neg); Color, Urine Yellow (P-Yellow); Glucose Qualitative, Urine Neg (Neg); Ketones, Urine 1+ (Neg); Leukocyte Esterase, Urine 3+ (Neg); Nitrite, Urine Neg (Neg); Protein, Urine 3+ (Neg); Urobilinogen, Urine 1+ (Normal)
[2022-11-09 19:51] LABS: Bilirubin, Urine 1+ (Neg)
[2022-11-09 19:54] LABS: Bacteria Many /hpf; White Blood Cells, Urine TNTC /hpf (0-5)
[2022-11-09 19:55] LABS: Mucus Light (0-Heavy); Squamous Epithelial Cells Few /hpf (Few); Yeast/Fungi Urine Many /hpf
--- NOTE | 2022-11-10 04:43 | NUR ---
TEAM OTR TRUCK DRIVER SUMMARY NO ACTUE EVENTS. A/OX4. PLEASANT AND COOPERAITVE. PT AFFECT IS FLAT/WITHDRAWN AND DEPRESSED. PT EXPRESSING GENERALLY POOR OUTLOOK ON HEALTH/FUTURE AND TALKING ABOUT POSSIBILITY OF HOSPICE. PT TOOK OXYGEN OFF NEAR THE BEGINNING OF SHIFT. DURING VITALS CHECKS AND SPOT CHECK; SATURATIONS WERE ALL ABOVE 93%. PT RESTING IN BED OR UP IN CHAIR WITH MINIMAL ACTIVITY. PT REPORTED FEELING NAUSEA T/O THE DAY AND THE BEGINNING OF SHIFT; ASSESSED PT WHEN ZOFRAN COULD BE GIVEN AGAIN AND PT DENIED NAUSEA. ON TELE; SINUS DARIEN. HS BS 164. PT INDEPENDENT IN THE ROOM. CALL LIGHT ACCESSIBLE.
[2022-11-10 05:02] LABS: Hematocrit 26.9 % (33.0-51.0); Hemoglobin 9.1 g/dL (11.5-16.0)
[2022-11-10 05:40] LABS: Albumin, Blood 3.1 g/dL (3.4-5.0); Anion Gap 11 mmol/L (6-16); Blood Urea Nitrogen 105 mg/dL (8-24); Bun/Creatinine Ratio 15.5 (12.0-20.0); CO2, Blood 25 mmol/L (21-32); Calcium, Blood 8.2 mg/dL (8.5-10.1); Chloride, Blood 92 mmol/L (98-108); Creatinine, Blood 6.79 mg/dL (0.40-1.00); Glomerular Filtration Rate 7 (60-); Glucose, Blood 218 mg/dL (70-99); Magnesium, Blood 2.3 mg/dL (1.6-2.4); Phosphorus, Blood 4.8 mg/dL (2.5-4.9); Potassium, Blood 4.1 mmol/L (3.5-5.5); Sodium, Blood 128 mmol/L (136-145)
--- NOTE | 2022-11-10 06:53 | NUR ---
RN NOTE; PHYSICIAN CONTACT DR RAMIREZ AT BEDSIDE; NEW ORDER FOR 50MG ZOLOFT PO DAILY. ADDED 0.5MG XANEX TO BE GIVEN PRIOR TO DIALYSIS AND ON 0.5MG DOSE A DAILY PRN FOR ANXIETY.
--- NOTE | 2022-11-10 12:50 | NUR ---
PT TRANSPORTED TO DIALYSIS BY PRODUCT SAFETY EXPERT AND CNAS .
[2022-11-10] MEDS ORDERED: Isosorbide Mono30 MG PO (13:19)
[2022-11-10] MEDS ORDERED: SERT50 PO (13:21)
[2022-11-10] MEDS ORDERED: Amlodipine Bes2.5 MG PO (13:22)
[2022-11-10] MEDS ORDERED: ASPI81CH PO (13:22)
[2022-11-10] MEDS ORDERED: ALPR.5 PO (13:23)
[2022-11-10] MEDS ORDERED: BASAGLAR K100 UNIT/1 SC (13:24)
[2022-11-10] MEDS ORDERED: INSULIN LI100 UNIT/8 SC (13:25)
[2022-11-10] MEDS ORDERED: ONDA4ODT MM (13:26)
[2022-11-10] MEDS ORDERED: Acetaminophen325 M1 PO (13:26)
--- NOTE | 2022-11-10 15:22 | NUR ---
polst completed copy to medical records. polst orignial given to patient. pt to discharge. pt high risk for readmission. updated dialysis staff.
--- NOTE | 2022-11-10 16:43 | NUR ---
DISCHARGE NOTE: PT DRESSED AND PACKED PERSONAL BELONGS. PT IV REMOTE W/O DIFFICULTY AND CATHETER INTACTED. PT EDUCATED ON DISCHARGE MEDICATIONS, FOLLOW UP WITH DR. RAMIREZ AND DISCHARGE EDUCATION. PT TRANSPORTED BY MINDI SMITH TO [facility].
== END 2022-11-10 16:41 | disposition hospice, home (50) | DRG 280 ==
LOC: ER 11:19 → MEDS 11:20
PROVIDERS: Internal Medicine; Internal Medicine Nephrology; Nurse Practitioner Acute Care; Student in an Organized Health Care Education/Training Program; ADMIT Internal Medicine
PROC: 5A1D70Z Performance of Urinary Filtration, Intermittent, Less than 6 Hours Per Day (ICD-10-PCS; principal; 2022-11-06)
DX: I13.2 Hypertensive heart and chronic kidney disease with heart failure and with stage 5 chronic kidney disease, or end stage renal disease (principal); I21.A1 Myocardial infarction type 2; I50.43 Acute on chronic combined systolic (congestive) and diastolic (congestive) heart failure; N18.6 End stage renal disease; I16.1 Hypertensive emergency; N25.81 Secondary hyperparathyroidism of renal origin; E87.1 Hypo-osmolality and hyponatremia; Z51.5 Encounter for palliative care; Z66 Do not resuscitate; Z28.21 Immunization not carried out because of patient refusal; Z20.822 Contact with and (suspected) exposure to COVID-19; D63.1 Anemia in chronic kidney disease; F41.8 Other specified anxiety disorders; E10.22 Type 1 diabetes mellitus with diabetic chronic kidney disease; E10.40 Type 1 diabetes mellitus with diabetic neuropathy, unspecified; M54.9 Dorsalgia, unspecified; G89.29 Other chronic pain; E10.43 Type 1 diabetes mellitus with diabetic autonomic (poly)neuropathy; K31.84 Gastroparesis; I25.10 Atherosclerotic heart disease of native coronary artery without angina pectoris; K21.9 Gastro-esophageal reflux disease without esophagitis; Z91.15 Patient's noncompliance with renal dialysis; Z95.0 Presence of cardiac pacemaker; Z87.891 Personal history of nicotine dependence; Z95.1 Presence of aortocoronary bypass graft; Z98.890 Other specified postprocedural states; Z88.5 Allergy status to narcotic agent; Z88.6 Allergy status to analgesic agent; Z91.018 Allergy to other foods; Z79.4 Long term (current) use of insulin; Z79.899 Other long term (current) drug therapy
CPT/HCPCS: 0241U; 36415; 71045; 80048; 80069; 81001; 82947; 83036; 83735; 83880; 84484; 85014; 85018; 85025; 85027; 87086; 93005; 93010; 93308; 93321; 94760; 96372; 96374; 96375; 96376; 99285-25; A9270; C9113; G0378; J0360; J0881; J1644; J1815; J2405; P9047

== ENCOUNTER 2022-12-16 13:36 | Inpatient (IN) | payer MEDICARE, OTHER ==
[~2022-12-16] VITALS: Ht 162.6 cm; Wt 54.4 kg
[~2022-12-16 13:36] MED LIST changes: +ASPI81CH PO; +Acetaminophen325 M1 PO; +INSULIN LI100 UNIT/8 SC; +SERT50 PO
[2022-12-16 14:14] LABS: BASOPHILS ABSOLUTE AUTO 0.03 K/mm3 (0.00-0.23); BASOPHILS PERCENT AUTO 0 % (0-2); EOSINOPHILS PERCENT AUTO 0 % (0-6); Hematocrit 30.5 % (33.0-51.0); Hemoglobin 10.2 g/dL (11.5-16.0); IMMATURE GRAN ABSOLUTE AUTO 0.06 K/mm3 (0.00-0.10); IMMATURE GRAN PERCENT AUTO 0 % (0-1); LYMPHOCYTES PERCENT AUTO 2 % (21-46); MONOCYTES ABSOLUTE AUTO 0.42 K/mm3 (0.16-1.47); MONOCYTES PERCENT AUTO 3 % (4-13); Mean Corpuscular HGB 29.7 pg (26.0-34.0); Mean Corpuscular HGB Conc 33.4 g/dL (31.5-36.5); Mean Corpuscular Volume 89 fL (80-100); Mean Platelet Volume 12.7 fL (9.1-12.4); NEUTROPHILS PERCENT AUTO 95 % (41-73); Platelet Count 206 K/mm3 (150-400); RDW Coefficient Variation 14.1 % (11.7-14.2); RDW Standard Deviation 45.6 fL (35.1-46.3); Red Blood Cell Count 3.44 M/mm3 (3.80-5.20); White Blood Cell Count 14.91 K/mm3 (4.00-11.30)
[2022-12-16 14:25] LABS: Bun/Creatinine Ratio 18.2 (12.0-20.0); Calcium, Blood 9.2 mg/dL (8.5-10.1); Creatinine, Blood 2.2 mg/dL (0.40-1.00); Globulin, Blood 4.1 g/dL (2.2-4.0); Potassium, Blood 4.4 mmol/L (3.5-5.5); Total Protein, Blood 8.1 g/dL (6.4-8.2)
[2022-12-16 15:03] LABS: Base Excess Venous 3.9 mmol/L; Bicarbonate Venous 27.6 mmol/L (24.0-30.0); PCO2 Venous 41.6 mmHg (38-42); pH Blood Venous 7.44 (7.34-7.37)
--- NOTE | 2022-12-17 00:11 | NUR ---
TRANSFER NOTE REPORT RECEIVED FROM YAS TOBIAS IN THE ED. PATIENT TRANSFERRED TO PCU AROUND 2230. PATIENT ON BIPAP 14/ WITH 6L BLEED IN. SPO2 >92% AT THIS TIME. PATIENT DESATS QUICKLY WHEN OFF BIPAP TO THE LOW-MID 80'S. 6-12L OF O2 VIA NC ATTEMPTED WITH SPO2 REMAINING AT 88%. PATIENT CONTINUES TO REPORT SOB. DYSPNEA NOTED WITH MOVEMENT AND SPEAKING. HX AND MED REC INCOMPLETE AT THIS TIME. PATIENT CONTINUES TO HAVE N/V, MEDICATED PER EMAR WITH MINIMAL RESULTS. PATIENT REPORTS ABDOMINAL PAIN. SR/ST ON MONITOR WITH HR 90-110'S. HTN NOTED. TEMP 99.0-100.0 AT THIS TIME. GLUCOSE IN THE 400'S. MD AWARE. CBG CHECKS AND COVERAGE Q4HRS AT THIS TIME. MD CARBONE CALLED REGARDING PATIENT'S ANXIETY, MD INFORMED ON HTN AND SOB WELL. PATIENT ALERT AND ORIENTED BUT UNABLE TO CONVERSE S/T O2 DEMANDS. PATIENT ON BEDREST AT THIS TIME. PERMCATH NOTED IN RIGHT CHEST WALL, PATIENT STATES SHE RECEIVES DIALYSIS TWICE A WEEK AND RECEIVED DIALYSIS ON 12/15/22. BED IN LOWEST POSITION AND CALL LIGHT WITHIN REACH.
[2022-12-17 04:10] LABS: Hematocrit 30.1 % (33.0-51.0); Hemoglobin 10.1 g/dL (11.5-16.0); Mean Corpuscular HGB 29.2 pg (26.0-34.0); Mean Corpuscular HGB Conc 33.6 g/dL (31.5-36.5); Mean Corpuscular Volume 87 fL (80-100); Mean Platelet Volume 12.1 fL (9.1-12.4); Platelet Count 215 K/mm3 (150-400); RDW Coefficient Variation 14.1 % (11.7-14.2); Red Blood Cell Count 3.46 M/mm3 (3.80-5.20); White Blood Cell Count 16.25 K/mm3 (4.00-11.30)
--- NOTE | 2022-12-17 04:59 | NUR ---
SHIFT SUMMARY NO ACUTE CHANGES SINCE PREVIOUS NOTE. PATIENT NOTED TO HAVE NO FURTHER EPISODES OF N/V AND ABDOMINAL PAIN SINCE 0100. PATIENT REPORTS FEELING TIRED AND HAS BEEN SLEEPING WITH BIPAP ON. BIPAP / WITH 5L BLEED IN AT THIS TIME WITH SPO2 >92%. AFEBRILE AT THIS TIME. BP STABLE WITH HTN NOTED, SBP 160'S. SR/ST ON MONITOR WITH HR 80-100'S. PATIENT REPOSITIONING SELF IN BED. CALLING APPROPRIATELY. LAST CBG 362 AT 0400; MEDICATING PER EMAR. BED IN LOWEST POSITION AND CALL LIGHT WITHIN REACH. THIS RN WILL CONTINUE TO MONITOR UNTIL SHIFT CHANGE AT 0700.
--- NOTE | 2022-12-17 10:48 | NUR ---
PHONE CALL TO DR RAMIREZ REGARDING PT REFUSAL TO GO TO DIALYSIS THIS AM. ORDERS FOR BUMEX 6MG BID AND STAT POTASSIUM LAB DRAW.
--- NOTE | 2022-12-17 10:50 | NUR ---
PT TITRATED OFF O2. SPO2 @ 94-95% ON RA.
--- NOTE | 2022-12-17 10:51 | NUR ---
DIALYSIS DR RAMIREZ GAVE ORDERS TO DIALYZE THE PT. CALLED THE RN ABOUT HAVING THE PT HERE AT 0900. SHE LATER CALLED AND SAID THAT THE PT REFUSES TO DIALYZE TODAY. IT IS NOT HER NORMAL TX DAY. WENT TO TALK TO HER ABOUT IT. SHE APPEARED TO BE SLEEPING. SHE WOULD NOT WAKE UP, THE NURSE INFORMED ASHLEY FITCH OF THE PT DECISION.
--- NOTE | 2022-12-17 12:58 | NUR ---
Emesis about 50 cc total, once green and second time was purplish red; pt states that she was drinking grape juice. given zofran IV for nausea/vomiting and informed charger operator and primary RN.
--- NOTE | 2022-12-17 16:02 | NUR ---
Pt is a 57 year old female with Type 1 DM, chronic back pain, CHF, CKD. She developed n/v post dialysis yesterday, and has been receiving no nausea relief from Zofran. Pt no longer wishes to participate in dialysis or continue with current regimen. She is requesting comfort care, and her friend is present. Dr. Wiggins and this RN met with pt to confirm. Unsure if pt will be able to return home, as she currently lives in a 5th wheel with friend Braden, and he reports there is no way to put a hospital bed in a 36 ft long 5th wheel. Will discuss further with care managament. Pt to be placed on comfort care now, with modified medications to avoid allergies.
[2022-12-17 17:25] LABS: Albumin, Blood 3.7 g/dL (3.4-5.0); Anion Gap 12 mmol/L (6-16); Blood Urea Nitrogen 49 mg/dL (8-24); Bun/Creatinine Ratio 15.7 (12.0-20.0); CO2, Blood 28 mmol/L (21-32); Calcium, Blood 8.9 mg/dL (8.5-10.1); Chloride, Blood 96 mmol/L (98-108); Creatinine, Blood 3.13 mg/dL (0.40-1.00); Glomerular Filtration Rate 17 (60-); Glucose, Blood 379 mg/dL (70-99); Phosphorus, Blood 3.7 mg/dL (2.5-4.9); Potassium, Blood 3.3 mmol/L (3.5-5.5); Sodium, Blood 136 mmol/L (136-145)
--- NOTE | 2022-12-17 18:30 | NUR ---
SHIFT SUMMARY PT A/O X4. WITHDRAWN AND FLAT AFFECT. PT WAS TITRATED DOWN ON O2 AND WAS BETWEEN RA AND 1LPM NC FOR MOST OF THE MORNING. SPO2 DROPPED THIS AFTERNOON TO THE MID 80'S. SHE WAS PLACED ON 6LPM NC AND WAS ABLE TO MAINTAIN 90% UNTIL PT WAS GIVEN INAPSINE FOR NAUSEA. SPO2 DROPPED TO 80-85%. RT CONTACTED AND PLACED PT ON HIGH FLOW NC AT 15LPM. PT WAS AT 85% WITH THIS BUT PT DECLINED BIPAP OR AIRVO. PT CURRENTLY AT 95-97% SPO2. PT HAD ONE EPISODE OF EMESIS TODAY. ZOFRAN WAS GIVEN BUT DID NOT GIVE PATIENT ANY RELIEF. INAPSINE HELPED, BUT DECREASED O2 SATS. DIALYSIS WAS ORDERED FOR THE PATIENT TODAY BY DR RAMIREZ. PT REFUSED TO GO TO DIALYSIS. DR RAMIREZ NOTIFIED. PT EXPRESSED TO DR PIERSON THAT SHE WANTED TO BE DNR/DNI AND GO HOME ON HOSPICE. PALLIATIVE CARE WAS NOTIFIED AND HAD A CONVERSATION WITH THE PATIENT. PT DECIDED SHE WANTED TO BE MOVED TO COMFORT CARE. ORDERS ARE IN. PT IS ABLE TO TRANSFER INDEPENDENTLY WITH SBA. DYSPNEA WITH EXERTION. PT ABLE TO REPOSITION INDEPENDENTLY. SHE DENIES ANY PAIN OR DISCOMFORT. WILL CONTINUE TO MONITOR AND REPORT TO ONCOMING RN.
--- NOTE | 2022-12-17 21:46 | NUR ---
ASSUMPTION OF CARE THIS RN ASSUMED CARE OF PATIENT AT 1900. REPORT TAKEN FROM NAWAF TOBIAS. PATIENT BEING MEDICATED NEEDED FOR NAUSEA. OTHERWISE PATIENT HAS REPORTED COMFORT. ABLE TO REPOSITION SELF IN BED. SBA TO BSC. CALLS APPROPRIATELY. ON 15L HIFLOW NC WITH SPO2 >92%. LS DIM IN BASES. DYSPNEIC WITH EXERTION. CALL PLACED TO MD CARBONE REGARDING SWITCHING PATIENT TO MEDICAL STATUS D/T COMFORT CARE. MD CARBONE AGREED. PATIENT REMAINS ON UNIT AT THIS TIME. BED IN LOWEST POSITION AND CALL LIGHT WITHIN REACH. PATIENT APPEARS TO BE RESTING COMFORTABLY WITH EQUAL CHEST RISE/FALL NOTED.
[2022-12-18 09:06] LABS: Glucose, Blood 631 mg/dL (70-99)
[2022-12-18 12:51] LABS: Glucose, Blood 600 mg/dL (70-99)
--- NOTE | 2022-12-18 15:47 | NUR ---
REPORT CALLED TO FIGUEROA RN ON SURGICAL FLOOR. PT TRANSFERED TO ROOM 211, NO DRIPS INFUSING AT THIS TIME. PT HAS NOT REQUIRED ADDITIONAL PAIN MANAGEMENT OR MEDICATION FOR NAUSEA SINCE THIS AM, WHEN AWAKE REPORTS GOOD RELIEF OF BOTH. FIGUEROA AWARE OF MOST RECENT GLUCOSE READING. PT HAS NOT RECEIEVED ANY PO MEDICATIONS R/T NAUSEA OR DROWSINESS FROM MEDICATIONS FIGUEROA IS AWARE. PT REMAINS COMFORT CARE. NO DIALYSIS, INCREASING EDEMA TO PERIORBITAL REGION AND EXTREMETIES.
--- NOTE | 2022-12-18 16:59 | NUR ---
1550 RECEIVED TO 211 VIA BED . PT LYING WITH EYES CLOSED, OPENS EYES TO VERBAL STIMULI, STATES "NO" WHEN ASKED IF HAVING ANY PAIN. PATIENTS SIGNIFICANT OTHER HERE TO VISIT. BAG OF PATIENTS HOME MEDS TAKEN TO PHARMACY. PTS SIGNIFICANT OTHER , MARILYN, HERE TO VISIT
--- NOTE | 2022-12-18 18:28 | NUR ---
LYING WITH EYES CLOSED, UNLABORED RESPIRATIONS WHEN UNDISTURBED. RESPONDS TO VERBAL STIMULI AND ABLE TO STATE NAME AND BIRTHDATE. SOME RETCHING AFTER TOOK A BITE OF DINNER- MEDICATED FOR NAUSEA. GENERALIZED EDEMA. PTS SIGNIFICANT OTHER AT BEDSIDE AND ATTENTIVE TO PATIENT. SIGNIFICANT OTHER [facility]
--- NOTE | 2022-12-18 18:39 | NUR ---
CASE CONF WITH ZENA RN AND HENRY RN IN REGARDS TO NAUSEA AND PAIN. SYMPTOMS ARE MANAGED AT THIS TIME WITH CURRENT MEDICATION REGIMEN. REQUESTED TO COME TO THE ROOM BY PT AND SO, JONNIE. THEY ASK THAT I SPEAK TO PT SON AND GIVE HIM AN UPDATE ON PT STATUS AND PLAN. JONNIE CALLED PT SON, TRACY ON HIS PERSONAL CELL PHONE AND THIS RN PROVIDED PT UPDATE AND ANSWERED QUESTIONS ABOUT HOSPICE AND HER DC PLAN. VERBAL CONSENT OBTAINED FROM THE PT TO GIVE TRACY UPDATED INFORMATION WHILE SHE IS IN THE HOSPITAL. PROVIDED TRACY WITH PHONE NUMBER TO PALLIATIVE CARE OFFICE AND ENCOURAGED HIM TO CALL ANYTIME FOR AN UPDATE. ADVISED THAT I WOULD REACH OUT TO HIM IF HIS MOTHER HAS A SUDDEN DECLINE, HE IS APPRECIATIVE. PALLIATIUVE CARE WILL CONTINUE TO FOLLOW.
[2022-12-19 05:38] LABS: Hematocrit 33.8 % (33.0-51.0); Hemoglobin 11.1 g/dL (11.5-16.0)
--- NOTE | 2022-12-19 06:03 | NUR ---
SHIFT SUMMARY PT ALERT AND ORIENTED. NO ACUTE CHANGES. PT HAS REMAINED NAUSEAS WITH OCCASIONAL VOMITING (BROWN/GREEN IN COLOR), AND PAIN. MEDICATING PER EMAR. NEW IV PLACED IN L FOREARM. UP TO BATHROOM TWICE WITH NURSE ASSIST. ABLE TO REPOSITION SELF IN BED. 4L OXYGEN PER NC. CALLS APPROPRIATELY, CALL LIGHT WITHIN REACH.
[2022-12-19 06:35] LABS: Albumin, Blood 3.6 g/dL (3.4-5.0); Anion Gap 20 mmol/L (6-16); Blood Urea Nitrogen 86 mg/dL (8-24); Bun/Creatinine Ratio 15.8 (12.0-20.0); CO2, Blood 24 mmol/L (21-32); Calcium, Blood 9.1 mg/dL (8.5-10.1); Chloride, Blood 87 mmol/L (98-108); Creatinine, Blood 5.45 mg/dL (0.40-1.00); Glomerular Filtration Rate 9 (60-); Glucose, Blood 429 mg/dL (70-99); Magnesium, Blood 2.5 mg/dL (1.6-2.4); Potassium, Blood 3.8 mmol/L (3.5-5.5); Sodium, Blood 131 mmol/L (136-145)
--- NOTE | 2022-12-19 18:16 | NUR ---
SHIFT SUMMARY PT A&OX4, VSS/4LNC, CBGS COVERED PER EMAR. LAST CBG 78, DR PIERSON AWARE PT BS LOWERING T/O DAY R/T PT UNABLE TO LAURIE PO. N&V TREATED WITH ZOFRAN, INAPSINE & ATIVAN 1 MG. PT AMB SBA, VOIDING, REPOSITIONS SELF, BESTFRIEND AT BEDSIDE. WILL REPORT TO ONCOMING FRANCHESCA RN.
[2022-12-20 04:34] LABS: Hematocrit 31.9 % (33.0-51.0); Hemoglobin 10.5 g/dL (11.5-16.0)
[2022-12-20 04:47] LABS: Albumin, Blood 3.5 g/dL (3.4-5.0); Anion Gap 14 mmol/L (6-16); Blood Urea Nitrogen 89 mg/dL (8-24); Bun/Creatinine Ratio 17.9 (12.0-20.0); CO2, Blood 28 mmol/L (21-32); Calcium, Blood 8.9 mg/dL (8.5-10.1); Chloride, Blood 88 mmol/L (98-108); Creatinine, Blood 4.97 mg/dL (0.40-1.00); Glomerular Filtration Rate 10 (60-); Glucose, Blood 393 mg/dL (70-99); Magnesium, Blood 2.4 mg/dL (1.6-2.4); Phosphorus, Blood 3.9 mg/dL (2.5-4.9); Potassium, Blood 3.8 mmol/L (3.5-5.5); Sodium, Blood 130 mmol/L (136-145)
--- NOTE | 2022-12-20 06:37 | NUR ---
SHIFT SUMMARY PT A&OX4, AND COOPERATIVE WITH CARE. NO ACUTE CHANGES. PT RESTED MAJORITY OF SHIFT. TREATING NAUSEA/PAIN PER EMAR. 4LNC. VOIDING WITH SBA TO BATHROOM. ABLE TO REPOSITION SELF. CALLS APPROPRIATELY, CALL LIGHT WITHIN REACH.
[2022-12-20 10:23] LABS: Glucose, Blood 599 mg/dL (70-99)
--- NOTE | 2022-12-20 10:30 | NUR ---
TELEPHONE CALL TO HOSPITALIST DR PIERSON WITH RESULT BLOOD GLUCOSE 599, DR ORDERED TO TREAT PT WITH HUMALOG 10 UNITS (>350 PROTOCAL) + 5 UNITS (TID TREATMENT) AND INS GLARGINE 10 UNITS, RECHECK CBG 1 HR, TREAT WITH INS HUMALOG OR CALL WITH > 350.
--- NOTE | 2022-12-20 12:00 | NUR ---
TELEPHONE CALL TO HOSPITALIST DR PIERSON WITH RESULT BLOOD GLUCOSE 643, DR ORDERED TO CHANGE MED SLIDING SCALE TO HIGH, AND TREAT PT WITH HUMALOG 15 UNITS (>350 PROTOCAL) + 5 UNITS (TID TREATMENT). WILL RECHECK IN 1 HR.
[2022-12-20 12:33] LABS: Glucose, Blood 643 mg/dL (70-99)
--- NOTE | 2022-12-20 17:03 | NUR ---
PT RESTING COMF AND SYMPTOMS ARE MANAGED WITH CURRENT MEDICATIONS. NO NEEDS OR CONCERNS AT THIS TIME.
--- NOTE | 2022-12-20 17:17 | NUR ---
TELEPHONE CALL TO HOSPITALIST DR PIERSON WITH RESULT BLOOD GLUCOSE 171, DR ORDERED TO HOLD HUMALOG 5 UNITS TIDM, AND 1630 AC HSS TX.
--- NOTE | 2022-12-20 17:27 | NUR ---
SHIFT SUMMARY PT A&OX4, VSS/4LNC, CBGS CH TODAY/DR ORDERED PER EMAR, LAURIE SMALL AMT PO, N&V TREATED WITH ZOFRAN, INAPSINE & ATIVAN 1 MG. PT AMB SBA, VOIDING, REPOSITIONS SELF, BESTFRIEND AT BEDSIDE. WILL REPORT TO ONCOMING NOC RN.
[2022-12-21 04:56] LABS: Hematocrit 29.8 % (33.0-51.0)
[2022-12-21 05:14] LABS: Albumin, Blood 3.1 g/dL (3.4-5.0); Anion Gap 11 mmol/L (6-16); Blood Urea Nitrogen 88 mg/dL (8-24); Bun/Creatinine Ratio 20.8 (12.0-20.0); CO2, Blood 30 mmol/L (21-32); Calcium, Blood 8.4 mg/dL (8.5-10.1); Chloride, Blood 91 mmol/L (98-108); Creatinine, Blood 4.23 mg/dL (0.40-1.00); Glomerular Filtration Rate 12 (60-); Glucose, Blood 259 mg/dL (70-99); Magnesium, Blood 2.2 mg/dL (1.6-2.4); Phosphorus, Blood 3.2 mg/dL (2.5-4.9); Potassium, Blood 3.8 mmol/L (3.5-5.5); Sodium, Blood 132 mmol/L (136-145)
--- NOTE | 2022-12-21 05:48 | NUR ---
SHIFT SUMMARY PT A&OX4, AND COOPERATIVE WITH CARE. NO ACUTE CHANGES. SLEPT MAJORITY OF SHIFT, BUT WHEN AWAKE PT CONTINUES TO HAVE NAUSEA/PAIN, MEDICATING PER EMAR. SBA TO BATHROOM, REPOSITIONS SELF IN BED. 4LNC. CALLS APPROPRIATELY, CALL LIGHT WITHIN REACH.
[2022-12-21] MEDS ORDERED: ALBU2.5V5 INH (12:10)
--- NOTE | 2022-12-21 12:34 | NUR ---
DISCHARGE PATIENT DISCHARGING HOME ON HOSPICE. PATIENT VERBALIZES AGREEMENT IN WNATING TO GO HOME AT THIS TIME. DISCUSSED DISCHARGE INSTRUCTIONS. ANN-MARIE RN FROM CARE MANAGMENT IN ROOM AT TIME, DISCUSSED [facility] SERVICES FOR PATIENT. PATIENT TRANSPORTED VIA [facility] TRANSPORT.
== END 2022-12-21 12:18 | disposition hospice, home (50) | DRG 189 ==
LOC: ER 13:36 → PCU 22:10 → SURS 12-18 15:38
PROVIDERS: Emergency Medicine; Internal Medicine Nephrology; ADMIT Internal Medicine
PROC: 5A09357 Assistance with Respiratory Ventilation, Less than 24 Consecutive Hours, Continuous Positive Airway Pressure (ICD-10-PCS; principal; 2022-12-16)
PROC: 5A0935A Assistance with Respiratory Ventilation, Less than 24 Consecutive Hours, High Flow/Velocity Cannula (ICD-10-PCS; 2022-12-18)
DX: J96.01 Acute respiratory failure with hypoxia (principal); N18.6 End stage renal disease; I13.2 Hypertensive heart and chronic kidney disease with heart failure and with stage 5 chronic kidney disease, or end stage renal disease; J44.1 Chronic obstructive pulmonary disease with (acute) exacerbation; I50.42 Chronic combined systolic (congestive) and diastolic (congestive) heart failure; E87.1 Hypo-osmolality and hyponatremia; N25.81 Secondary hyperparathyroidism of renal origin; E10.22 Type 1 diabetes mellitus with diabetic chronic kidney disease; I25.10 Atherosclerotic heart disease of native coronary artery without angina pectoris; G89.29 Other chronic pain; Z51.5 Encounter for palliative care; Z66 Do not resuscitate; E10.43 Type 1 diabetes mellitus with diabetic autonomic (poly)neuropathy; K31.84 Gastroparesis; E10.42 Type 1 diabetes mellitus with diabetic polyneuropathy; E10.65 Type 1 diabetes mellitus with hyperglycemia; M54.9 Dorsalgia, unspecified; E87.6 Hypokalemia; E87.70 Fluid overload, unspecified; D63.1 Anemia in chronic kidney disease; K21.9 Gastro-esophageal reflux disease without esophagitis; E78.5 Hyperlipidemia, unspecified; F32.A Depression, unspecified; F41.9 Anxiety disorder, unspecified; Z79.2 Long term (current) use of antibiotics; Z79.51 Long term (current) use of inhaled steroids; Z79.4 Long term (current) use of insulin; Z79.891 Long term (current) use of opiate analgesic; I25.2 Old myocardial infarction; Z98.890 Other specified postprocedural states; Z87.891 Personal history of nicotine dependence; Z99.2 Dependence on renal dialysis; Z95.1 Presence of aortocoronary bypass graft; Z79.02 Long term (current) use of antithrombotics/antiplatelets; Z79.82 Long term (current) use of aspirin; Z79.899 Other long term (current) drug therapy; Z88.8 Allergy status to other drugs, medicaments and biological substances; Z88.5 Allergy status to narcotic agent; Z91.018 Allergy to other foods; Z91.15 Patient's noncompliance with renal dialysis
CPT/HCPCS: 36415; 71046; 80053; 80069; 82010; 82803; 82947; 83735; 84145; 85014; 85018; 85025; 85027; 93005; 93010; 94640; 94644; 94660; 94664; 94762; 96365; 96375; 96376; 99285-25; A9270; J0456; J0696; J1170; J1644; J1650; J1790; J1815; J2060; J2405; J2930; J7050